=== PATIENT | male | born 1960 | race Caucasian/White ===

== ENCOUNTER → 2018-04-25 06:15 | Outpatient (CLI) | payer MEDICARE, SELFPAY ==
--- NOTE | 2018-04-25 06:17 | NM_ITS ---
History and Indications: Coronary artery disease, hypertension, family history, chest pain, shortness of breath, palpitations, syncope and fatigue Procedure: Patient received a 0.4 mg of Lexiscan, resting heart rate was 53 bpm resting blood pressure 123/64, with Lexiscan maximum heart rate achieved was 84 bpm which is less than 85% of the maximum predicted heart rate and a blood pressure was 122/71. With Lexiscan patient complained of mild chest pressure Electrocardiogram: Resting electrocardiogram showed sinus bradycardia, with Lexiscan there is less than 1.[address] segment depression from the baseline EKG. The EKG portion of the Lexiscan is nondiagnostic. Cardiac stress and resting SPECT images: Cardiac stress and rest SPECT images were obtained using technetium 99 Myoview 31.5 mCi a 10.1 mCi at rest. Gated SPECT further analysis of segmental wall motion and calculation of the ejection fraction also been. Cardiac stress and resting SPECT images show a mild fixed defect in the apex with normal contractility in the gated SPECT is likely secondary to soft tissue attenuation, no reversible ischemia seen. Computer derived ejection fraction is 65% with no obvious regional wall motion abnormality. Right ventricle is normal size and contractility. Conclusion: 1. The EKG portion of the Lexiscan Myoview is nondiagnostic. 2. No obvious scintigraphic evidence of reversible ischemia seen, computer derived ejection fraction is 65% with no obvious regional wall motion abnormality, right ventricle is normal size and contractility. 3. Normal Lexiscan Myoview study.
--- NOTE | 2018-04-25 07:16 | HMH.ITSHM ---
BALINTNA PAIN MED BLOOD PRESSURE MED X 2
== END ==
PROVIDERS: PCP Physician Assistant; Visit Provider Internal Medicine
DX: I20.9 Angina pectoris, unspecified (principal); R42 Dizziness and giddiness; I65.23 Occlusion and stenosis of bilateral carotid arteries
CPT/HCPCS: 78452; 93017; A9502; J2785

== ENCOUNTER → 2018-05-18 13:18 | Outpatient (CLI) | payer MEDICARE, SELFPAY ==
--- NOTE | 2018-05-18 13:21 | CI_ITS ---
Cerebrovascular Exam Indications: Follow-up carotid 433.10. IMPRESSIONS 1. The bilateral vertebral arteries are patent with normal antegrade flow. 2. Study suggests 20-49% stenosis involving the right internal carotid artery. 3. Study suggests 100% occlusion involving the left internal carotid artery. Labs, prior tests, procedures, and surgery: Right endarterectomy (03-Jul-2017). Labs, prior tests, procedures, and surgery: Right endarterectomy (03-Jul-2017). Carotid duplex study. Complete study and Doppler flow study including spectral analysis, color and tracy scale imaging. Height: Height: 175.3cm. Height: 69in. Weight: Weight: 54.4kg. Weight: 119.8lb. Body mass index: BMI: 17.7kg/m^2. Body surface area: BSA: 1.61m^2. Location: Vascular laboratory. Patient status: Outpatient. Tables: Arterial flow: + +--------+--------+ Location V sys V ed + +--------+--------+ Right CCA - proximal 112cm/s 36.1cm/s + +--------+--------+ Right CCA - distal 108cm/s 41.6cm/s + +--------+--------+ Right ECA 88.2cm/s -------- + +--------+--------+ Right ICA - proximal 87.4cm/s 36.3cm/s + +--------+--------+ Right ICA - mid 69.2cm/s 36.8cm/s + +--------+--------+ Right ICA - distal 96.3cm/s 45.7cm/s + +--------+--------+ Right vertebral 38cm/s -------- + +--------+--------+ Left CCA - proximal 65.3cm/s 8.8cm/s + +--------+--------+ Left CCA - distal 55.5cm/s 9.8cm/s + +--------+--------+ Left ECA 163cm/s -------- + +--------+--------+ Left vertebral 60.9cm/s -------- + +--------+--------+ Velocity ratios: + + + + Right, V sys Right, V ed + + + + Max ICA/dist CCA 0.89 1.1 + + + + (Report amended ) Electronically signed by: Indra Ortiz [id number]
== END ==
PROVIDERS: PCP Physician Assistant; Visit Provider Internal Medicine
DX: I65.23 Occlusion and stenosis of bilateral carotid arteries (principal); R42 Dizziness and giddiness
CPT/HCPCS: 93880

== ENCOUNTER → 2018-05-31 11:18 | Outpatient (CLI) | payer MEDICARE, SELFPAY | PROVIDERS: PCP Physician Assistant; Visit Provider Internal Medicine | DX: R06.00 Dyspnea, unspecified (principal); R42 Dizziness and giddiness; I25.10 Atherosclerotic heart disease of native coronary artery without angina pectoris | CPT/HCPCS: 94060; 94640; 94726; 94729 ==

== ENCOUNTER → 2018-10-23 13:26 | Outpatient (CLI) | payer MEDICARE, SELFPAY | PROVIDERS: PCP Physician Assistant; Visit Provider Internal Medicine | DX: I20.9 Angina pectoris, unspecified (principal); R42 Dizziness and giddiness | CPT/HCPCS: 93270 ==

== ENCOUNTER → 2018-11-19 10:11 | Outpatient (CLI) | payer MEDICARE, SELFPAY ==
[2018-11-19 10:27] LABS: Basophils # 0.1 K/mm3 (0-0.2); Eosinophils # 0.3 K/mm3 (0.0-0.4); Eosinophils % 4.9 % (0.1-12.0); Hematocrit 39.4 % (42.0-52.0); Hemoglobin 12.7 g/dL (14.1-18.0); Lymphocytes # 1.8 K/mm3 (0.7-4.5); Lymphocytes % 25.5 % (10-50); Mean Corpuscular HGB Conc 32.2 g/dL (31.8-35.4); Mean Corpuscular Hemoglobin 29.4 pg (27.0-31.2); Mean Corpuscular Volume 91.6 fl (80-94); Mean Platelet Volume 7.6 fl (7.4-10.4); Monocytes # 0.4 K/mm3 (0.1-1.0); Monocytes % 5.7 % (1.7-9.3); Neutrophils # 4.4 K/mm3 (1.8-7.8); Neutrophils % 62.9 % (37.0-80.0); Platelet Count 248 K/mm3 (142-424); Red Cell Distribution Width 13.5 % (11.5-17.5); White Blood Count 6.9 K/mm3 (4.8-10.8)
[2018-11-19 11:18] LABS: Alanine Aminotransferase 35 U/L (12-78); Albumin Level 4.1 gm/dL (3.4-5.0); Alkaline Phosphatase 105 U/L (46-116); Anion Gap 8.6 mEq/L (5-15); Aspartate Amino Transferase 31 U/L (15-37); Bilirubin,Direct 0.1 mg/dL (0.0-0.2); Bilirubin,Indirect 0.4 mg/dL (0.0-0.9); Bilirubin,Total 0.5 mg/dL (0.2-1.0); Blood Urea Nitrogen 24 mg/dL (7-18); Calcium 9.3 mg/dL (8.5-10.1); Carbon Dioxide 35 mmol/L (21.0-32.0); Chloride 99 mmol/L (98-107); Chol/HDL Ratio 2.9 (1-3.5); Cholesterol 116 mg/dL (140-200); Estimated Glomerular Filt Rate 69 ml/min (>60); GFR (African American) 83 ML/MIN (>60); Glucose 131 mg/dL (74-106); HDL Cholesterol 40 mg/dL (27-67); LDL Cholesterol 61 mg/dL (0-130); Potassium 3.6 mmoL/L (3.5-5.1); Sodium 139 mmol/L (136-145); Total Protein,Serum 7.8 gm/dL (6.4-8.2); Triglycerides 76 mg/dL (30-200); VLDL Cholesterol 15 mg/dL (0-40)
== END ==
PROVIDERS: Visit Provider Physician Assistant
DX: E78.5 Hyperlipidemia, unspecified (principal); Z79.899 Other long term (current) drug therapy; R00.1 Bradycardia, unspecified; I25.119 Atherosclerotic heart disease of native coronary artery with unspecified angina pectoris
CPT/HCPCS: 36415; 80048; 80061; 80076; 85025

== ENCOUNTER → 2018-11-22 12:49 | Outpatient (CLI) | payer MEDICARE, SELFPAY ==
--- NOTE | 2018-11-22 12:53 | CI_ITS ---
Cerebrovascular Exam Indications: 433.10 Occlusion/stenosis of carotid artery without cerebral infarction. IMPRESSIONS 1. Study suggests 20-49% stenosis involving the right internal carotid artery. No change from the study of April 2018. 2. Study suggests 90-99% severe stenosis with possible trickle flow seen in proximal ICA. Labs, prior tests, procedures, and surgery: Right endarterectomy. Labs, prior tests, procedures, and surgery: Right endarterectomy. Carotid duplex study. Complete study and Doppler flow study including spectral analysis, color and tracy scale imaging. Location: Vascular laboratory. Patient status: Outpatient. Tables: Arterial flow: + +--------+--------+ Location V sys V ed + +--------+--------+ Right CCA - proximal 120cm/s 42.4cm/s + +--------+--------+ Right CCA - distal 99cm/s 31.4cm/s + +--------+--------+ Right ECA 110cm/s -------- + +--------+--------+ Right ICA - proximal 82.4cm/s 39.1cm/s + +--------+--------+ Right ICA - mid 80.3cm/s 42.6cm/s + +--------+--------+ Right ICA - distal 105cm/s 58cm/s + +--------+--------+ Right vertebral 39.7cm/s -------- + +--------+--------+ Left CCA - proximal 72.8cm/s 13.8cm/s + +--------+--------+ Left CCA - distal 40.5cm/s 9cm/s + +--------+--------+ Left ECA 123cm/s -------- + +--------+--------+ Left ICA - proximal 35.8cm/s 9.4cm/s + +--------+--------+ Left ICA - mid 25.1cm/s 6.7cm/s + +--------+--------+ Left vertebral 73.3cm/s -------- + +--------+--------+ Velocity ratios: + + + + + + Right, V sys Right, V ed Left, V sys Left, V ed + + + + + + Max ICA/dist CCA 1.06 1.85 0.88 1.04 + + + + + + (Report amended ) Electronically signed by: Indra Ortiz [id number]
== END ==
PROVIDERS: PCP Emergency Medicine; Visit Provider Internal Medicine
DX: R42 Dizziness and giddiness (principal)
CPT/HCPCS: 93880

== ENCOUNTER → 2018-12-11 12:29 | Outpatient (CLI) | payer MEDICARE, SELFPAY ==
[2018-12-11 13:58] LABS: Free T4 (Free Thyroxine) 0.97 ng/dl (0.76-1.46); Thyroid Stimulating Hormone 3.75 uIU/ml (0.358-3.740)
== END ==
PROVIDERS: Visit Provider Nurse Practitioner Family
DX: E11.9 Type 2 diabetes mellitus without complications (principal); I25.10 Atherosclerotic heart disease of native coronary artery without angina pectoris; I65.23 Occlusion and stenosis of bilateral carotid arteries; J44.9 Chronic obstructive pulmonary disease, unspecified; R06.09 Other forms of dyspnea; R53.83 Other fatigue; Z95.5 Presence of coronary angioplasty implant and graft; E78.49 Other hyperlipidemia
CPT/HCPCS: 36415; 84439; 84443

== ENCOUNTER → 2018-12-25 13:07 | Outpatient (CLI) | payer MEDICARE, SELFPAY | PROVIDERS: PCP Physician Assistant; Visit Provider Nurse Practitioner Family | DX: R53.83 Other fatigue; R06.83 Snoring; R40.0 Somnolence; I25.10 Atherosclerotic heart disease of native coronary artery without angina pectoris; I65.23 Occlusion and stenosis of bilateral carotid arteries; J44.9 Chronic obstructive pulmonary disease, unspecified; R06.09 Other forms of dyspnea; Z95.5 Presence of coronary angioplasty implant and graft; G47.33 Obstructive sleep apnea (adult) (pediatric); E78.49 Other hyperlipidemia | CPT/HCPCS: G0399 ==

== ENCOUNTER → 2019-01-08 13:02 | Outpatient (CLI) | payer MEDICARE, SELFPAY ==
[2019-01-08 15:10] LABS: Anion Gap 10.5 mEq/L (5-15); Blood Urea Nitrogen 24 mg/dL (7-18); Calcium 8.8 mg/dL (8.5-10.1); Carbon Dioxide 36 mmol/L (21.0-32.0); Chloride 97 mmol/L (98-107); Creatinine,Serum 1.28 mg/dL (0.70-1.30); Estimated Glomerular Filt Rate 58 ml/min (>60); GFR (African American) 70 ML/MIN (>60); Glucose 117 mg/dL (74-106); Potassium 3.5 mmoL/L (3.5-5.1); Sodium 140 mmol/L (136-145)
== END ==
PROVIDERS: Urology; Visit Provider Internal Medicine
DX: E11.9 Type 2 diabetes mellitus without complications (principal); E87.6 Hypokalemia; I25.10 Atherosclerotic heart disease of native coronary artery without angina pectoris
CPT/HCPCS: 36415; 80048

== ENCOUNTER → 2019-01-14 13:53 | Outpatient (CLI) | payer MEDICARE, SELFPAY ==
[2019-01-14 14:55] LABS: Alanine Aminotransferase 23 U/L (12-78); Albumin Level 4.2 gm/dL (3.4-5.0); Albumin/Globulin Ratio 1.1 (1.1-1.8); Alkaline Phosphatase 91 U/L (46-116); Anion Gap 12.3 mEq/L (5-15); Aspartate Amino Transferase 24 U/L (15-37); Bilirubin,Total 0.5 mg/dL (0.2-1.0); Blood Urea Nitrogen 21 mg/dL (7-18); Calcium 9.3 mg/dL (8.5-10.1); Carbon Dioxide 32 mmol/L (21.0-32.0); Chloride 98 mmol/L (98-107); Cholesterol 136 mg/dL (140-200); Creatinine,Serum 1.06 mg/dL (0.70-1.30); Estimated Glomerular Filt Rate 72 ml/min (>60); GFR (African American) 87 ML/MIN (>60); Glucose 125 mg/dL (74-106); HDL Cholesterol 46 mg/dL (27-67); LDL Cholesterol 71 mg/dL (0-130); Potassium 3.3 mmoL/L (3.5-5.1); Sodium 139 mmol/L (136-145); T4 (Thyroxine) 7.9 ug/dl (4.7-13.3); Thyroid Stimulating Hormone 2.23 uIU/ml (0.358-3.740); Total Protein,Serum 8.2 gm/dL (6.4-8.2); Triglycerides 96 mg/dL (30-200); VLDL Cholesterol 19 mg/dL (0-40)
[2019-01-14 15:47] LABS: Hemoglobin A1C 6.3 % (0.0-7.0)
[2019-01-14 18:01] LABS: Basophils # 0.1 K/mm3 (0-0.2); Basophils % 0.7 % (0.1-2.0); Eosinophils # 0.3 K/mm3 (0.0-0.4); Eosinophils % 3.2 % (0.1-12.0); Hematocrit 39.1 % (42.0-52.0); Hemoglobin 13.4 g/dL (14.1-18.0); Lymphocytes # 1.8 K/mm3 (0.7-4.5); Lymphocytes % 18.1 % (10-50); Mean Corpuscular HGB Conc 34.2 g/dL (31.8-35.4); Mean Corpuscular Volume 90.5 fl (80-94); Mean Platelet Volume 8.5 fl (7.4-10.4); Monocytes # 0.7 K/mm3 (0.1-1.0); Monocytes % 6.9 % (1.7-9.3); Neutrophils % 71.1 % (37.0-80.0); Platelet Count 215 K/mm3 (142-424); Red Blood Count 4.32 M/mm3 (4.60-6.20); Red Cell Distribution Width 13.3 % (11.5-17.5); White Blood Count 9.8 K/mm3 (4.8-10.8)
[2019-01-15 12:04] LABS: Ferritin 557 ng/mL (8-388)
[2019-01-16 08:04] LABS: PSA, Free 0.49 ng/mL; Prostate Specific Ag 1.1 ng/mL (0.0-4.0); Vitamin D 25 Hydroxy 35.3 ng/mL (30.0-100.0)
[2019-01-16 08:26] LABS: Iron 44 ug/dL (38-169); UIBC 264 ug/dL (111-343)
[2019-01-16 12:51] LABS: Thyroid Peroxidase Antibodies 10 IU/mL (0-34); Vitamin B12 458 pg/mL (232-1245)
[2019-01-16 12:52] LABS: Iron Saturation 14 % (15-55)
[2019-01-17 07:33] LABS: Thyroid Stimulating Immunoglob <0.10 IU/L (0.00-0.55)
== END ==
PROVIDERS: Visit Provider Physician Assistant
DX: R53.83 Other fatigue (principal); R07.89 Other chest pain; E11.9 Type 2 diabetes mellitus without complications; D64.9 Anemia, unspecified
CPT/HCPCS: 80053; 80061; 82607; 82652; 82728; 82746; 83036; 83540; 83550; 84153; 84154; 84436; 84443; 84445; 85025; 86376

== ENCOUNTER → 2019-02-08 11:44 | Outpatient (CLI) | payer MEDICARE, SELFPAY ==
[2019-02-08 13:00] LABS: Basophils # 0.1 K/mm3 (0-0.2); Basophils % 1.4 % (0.1-2.0); Eosinophils # 0.4 K/mm3 (0.0-0.4); Eosinophils % 5.3 % (0.1-12.0); Hematocrit 39.8 % (42.0-52.0); Hemoglobin 13.1 g/dL (14.1-18.0); Lymphocytes # 2.2 K/mm3 (0.7-4.5); Lymphocytes % 29.9 % (10-50); Mean Corpuscular HGB Conc 32.9 g/dL (31.8-35.4); Mean Corpuscular Hemoglobin 29.8 pg (27.0-31.2); Mean Corpuscular Volume 90.8 fl (80-94); Mean Platelet Volume 7.3 fl (7.4-10.4); Monocytes # 0.4 K/mm3 (0.1-1.0); Monocytes % 5.6 % (1.7-9.3); Neutrophils # 4.3 K/mm3 (1.8-7.8); Neutrophils % 57.7 % (37.0-80.0); Platelet Count 252 K/mm3 (142-424); Red Blood Count 4.39 M/mm3 (4.60-6.20); Red Cell Distribution Width 12.9 % (11.5-17.5); White Blood Count 7.4 K/mm3 (4.8-10.8)
[2019-02-08 13:33] LABS: Potassium 3.4 mmoL/L (3.5-5.1)
== END ==
PROVIDERS: Physician Assistant; Visit Provider Urology
DX: D64.9 Anemia, unspecified (principal); E87.6 Hypokalemia
CPT/HCPCS: 36415; 84132; 85025

== ENCOUNTER → 2019-02-11 08:41 | Outpatient (CLI) | payer MEDICARE, SELFPAY ==
--- NOTE | 2019-02-11 08:42 | US_ITS ---
US Arterial Ankle Brachial Ind History: ITS.REASON: skin changes, claudication, previous smoker ORDERING PHYSICIAN: Sandra Krihsna DPM PATIENT AGE: 58 years TECHNIQUE: Segmental pressures obtained of both right and left leg. These are compared to brachial blood pressure to yield index at each level sampled including summary DON. The data sheets from the procedure are available in PACS FINDINGS Rest study only performed today No prior studies available for comparison. Blood pressures reported are in millimeters mercury. RIGHT LEG DON = 1.0. RIGHT LEG TBI=.8 Brachial BP: 129 Thigh BP: 135 Calf BP: 130 Ankle PT: 130 Ankle DP : 120 Digit =98 LEFT LEG DON = 1.0 LEFT LEG TBI= 1.0 Brachial BPD: 129 Thigh BP: 154 Calf BP: 122 Ankle PT:126 Ankle DP: 135 Digit = 128 Pulses and waveforms: Normal IMPRESSION: The ABIs and TBIs as reported above are within normal limits. Waveforms and pulses are also unremarkable.
== END ==
PROVIDERS: PCP Physician Assistant; Visit Provider Podiatrist
DX: R09.89 Other specified symptoms and signs involving the circulatory and respiratory systems (principal)
CPT/HCPCS: 93922

== ENCOUNTER → 2019-06-13 11:43 | Outpatient (CLI) | payer MEDICARE, SELFPAY ==
--- NOTE | 2019-06-13 11:44 | NM_ITS ---
History:SOA, chest pain, hypertension, hyperlipidemia, family history. Procedure: Patient received a 0.4 mg of intravenous Lexiscan, resting heart rate 70 bpm, resting blood pressure 119/66, with Lexiscan maximum heart rate achieve was 96 bpm which is less than 85 % of the maximum predicted heart rate and blood pressure was 104/70. WIth Lexiscan patient denied any complaint of chest pain. Electrocardiogram: Resting electrocardiogram showed sinus rhythm, with Lexiscan there is less than 1.5mm ST segment depression noted from the baseline EKG. The EKG portion of the Lexiscan Myoview is nondiagnostic. Cardias Stress and Resting SPECT images: Cardias Stress and Resting SPECT images were obtained using technetium 99m Myoview 10.89 mCi stress and 31.2 mCi at rest. Gated SPECT further analysis of segmental wall motion and calculation of ejection fraction also done. Cardiac stress and resting SPECT show uniform myocardial activity without segmental perfusion abnormality , the computer derived ejection fraction is over 65% with no regional wall motion abnormality, right ventricle is normal size and contractility. Conclusion: 1. The EKG portion of the Lexiscan Myoview is nondiagnostic. 2. No scintigraphic evidence of reversible ischemia seen, computer derived ejection fraction is over 65% with no regional wall motion abnormality, right ventricle is normal size and contractility. 3. Normal Lexiscan Myoview study.
--- NOTE | 2019-06-13 12:35 | CI_ITS ---
Cerebrovascular Exam Indications: 433.10 Occlusion/stenosis of carotid artery without cerebral infarction. IMPRESSIONS 1. The bilateral vertebral arteries are patent with normal antegrade flow. 2. Study suggests 20-49% stenosis involving the right internal carotid artery. No change from the study of 22-Nov-2018. 3. Study suggests 90-99%severestenosis involving the left internal carotid artery with possible trickle flow seen. No change from the study of 22-Nov-2018. Labs, prior tests, procedures, and surgery: Right endarterectomy (2017). Labs, prior tests, procedures, and surgery: Right endarterectomy (2017). Carotid duplex study. Complete study and Doppler flow study including spectral analysis, color and tracy scale imaging. Height: Height: 172.7cm. Height: 68in. Weight: Weight: 61.2kg. Weight: 134.7lb. Body mass index: BMI: 20.5kg/m^2. Body surface area: BSA: 1.71m^2. Location: Vascular laboratory. Patient status: Outpatient. Tables: Arterial flow: + +--------+--------+ Location V sys V ed + +--------+--------+ Right CCA - proximal 131cm/s 36.9cm/s + +--------+--------+ Right CCA - distal 114cm/s 41.6cm/s + +--------+--------+ Right ECA 123cm/s -------- + +--------+--------+ Right ICA - proximal 92.1cm/s 37.5cm/s + +--------+--------+ Right ICA - mid 113cm/s 53.4cm/s + +--------+--------+ Right ICA - distal 123cm/s 55.9cm/s + +--------+--------+ Right vertebral 38.4cm/s -------- + +--------+--------+ Left CCA - proximal 98.5cm/s 9.8cm/s + +--------+--------+ Left CCA - distal 51.9cm/s 9.4cm/s + +--------+--------+ Left ECA 160cm/s -------- + +--------+--------+ Left ICA - proximal 21cm/s 5.6cm/s + +--------+--------+ Left ICA - mid 74.6cm/s 18.1cm/s + +--------+--------+ Left vertebral 78.9cm/s -------- + +--------+--------+ Velocity ratios: + + + + + + Right, V sys Right, V ed Left, V sys Left, V ed + + + + + + Max ICA/dist CCA 1.08 1.34 1.44 1.92 + + + + + + (Report amended ) Electronically signed by: Rubio Corral [id number]
--- NOTE | 2019-06-13 13:25 | HMH.ITSHM ---
Current Home Medications as stated by this patient Marcell Manning or paper sales representative. []POTASSIUM ISOSORBIDE HCTZ ATORVASTATIN ASA MULTIVITAMIN FERROUS SULFATE CLOPIDOGREL BISOPROLOL
== END ==
PROVIDERS: PCP Physician Assistant; Visit Provider Internal Medicine Cardiovascular Disease
DX: E11.9 Type 2 diabetes mellitus without complications (principal); E78.5 Hyperlipidemia, unspecified; I25.10 Atherosclerotic heart disease of native coronary artery without angina pectoris; I48.91 Unspecified atrial fibrillation; I49.3 Ventricular premature depolarization; I65.23 Occlusion and stenosis of bilateral carotid arteries; J44.9 Chronic obstructive pulmonary disease, unspecified; R07.89 Other chest pain; R07.9 Chest pain, unspecified; R42 Dizziness and giddiness; Z95.0 Presence of cardiac pacemaker; Z95.5 Presence of coronary angioplasty implant and graft
CPT/HCPCS: 78452; 93017; 93880; A9502; J2785

== ENCOUNTER → 2019-11-28 17:29 | Outpatient (CLI) | payer MEDICARE, SELFPAY | PROVIDERS: Visit Provider Physician Assistant | DX: B95.8 Unspecified staphylococcus as the cause of diseases classified elsewhere (principal); L08.9 Local infection of the skin and subcutaneous tissue, unspecified | CPT/HCPCS: 87070; 87077; 87186; 87205 ==

== ENCOUNTER → 2020-07-17 11:57 | Outpatient (CLI) | payer MEDICARE, SELFPAY ==
[2020-07-17 12:16] LABS: Basophils # 0.1 K/mm3 (0-0.2); Basophils % 0.4 % (0.1-2.0); Eosinophils # 0.3 K/mm3 (0.0-0.4); Eosinophils % 2.4 % (0.1-12.0); Hematocrit 36.3 % (42.0-52.0); Hemoglobin 12.4 g/dL (14.1-18.0); Lymphocytes # 1.2 K/mm3 (0.7-4.5); Lymphocytes % 9.8 % (10-50); Mean Corpuscular HGB Conc 34.2 g/dL (31.8-35.4); Mean Corpuscular Hemoglobin 31.3 pg (27.0-31.2); Mean Corpuscular Volume 91.5 fl (80-94); Mean Platelet Volume 7.7 fl (7.4-10.4); Monocytes # 0.6 K/mm3 (0.1-1.0); Monocytes % 5.1 % (1.7-9.3); Neutrophils # 10.2 K/mm3 (1.8-7.8); Neutrophils % 82.3 % (37.0-80.0); Platelet Count 203 K/mm3 (142-424); Red Blood Count 3.96 M/mm3 (4.60-6.20); Red Cell Distribution Width 12.4 % (11.5-17.5); White Blood Count 12.3 K/mm3 (4.8-10.8)
[2020-07-17 13:19] LABS: Chloride 99 mmol/L (98-107); Potassium 4.3 mmoL/L (3.5-5.1); Sodium 141 mmol/L (136-145)
[2020-07-17 13:21] LABS: Alanine Aminotransferase 20 U/L (12-78); Aspartate Amino Transferase 33 U/L (17-59); Blood Urea Nitrogen 25 mg/dl (9-20); Estimated Glomerular Filt Rate 99 ml/min (>60); GFR (African American) 120 ML/MIN (>60)
[2020-07-17 13:22] LABS: Albumin Level 4.1 g/dl (3.5-5.0); Albumin/Globulin Ratio 1.2 (1.1-1.8); Alkaline Phosphatase 88 U/L (38-126); Anion Gap 15.3 mEq/L (5-15); Bilirubin,Total 1.2 mg/dl (0.2-1.3); Calcium 9.7 mg/dl (8.4-10.2); Carbon Dioxide 31 mmol/L (22.0-30.0); Chol/HDL Ratio 3.6 (1-3.5); Cholesterol 142 mg/dl (140-200); Globulin 3.3 g/dL (1.3-3.2); Glucose 123 mg/dl (74-100); HDL Cholesterol 40 mg/dl (40-60); Total Protein,Serum 7.4 g/dl (6.3-8.2); Triglycerides 116 mg/dl (30-150); VLDL Cholesterol 23 mg/dL (0-40)
[2020-07-17 13:33] LABS: Direct LDL Cholesterol 76.28 mg/dL (100-129)
[2020-07-17 13:39] LABS: T4 (Thyroxine) 7.6 ug/dl (5.53-11.0)
[2020-07-17 13:53] LABS: Thyroid Stimulating Hormone 0.43 uIU/mL (0.465-4.68)
[2020-07-19 17:06] LABS: Covid-19 Nasal PCR Sendout UK Not Detected
== END ==
PROVIDERS: Visit Provider Nurse Practitioner Family
DX: R69 Illness, unspecified (principal); I48.91 Unspecified atrial fibrillation; R09.81 Nasal congestion; R42 Dizziness and giddiness; K92.2 Gastrointestinal hemorrhage, unspecified; I20.9 Angina pectoris, unspecified
CPT/HCPCS: 36415; 80053; 80061; 84436; 84443; 85025; U0003

== ENCOUNTER → 2020-10-06 08:30 | Outpatient (CLI) | payer MEDICARE, SELFPAY ==
--- NOTE | 2020-10-06 08:31 | CA_ITS ---
APPROVED REPORT [employer]: Amie Estrada RVT Laterality: Bilateral Study Quality: Good Indications: bilateral carotid artery stenosis,known occlusion lt ica Surgery/Intervention Endarterectomy: right Medications Plavix Doppler Spectral Velocity Analysis ECA (R) 92.00/8.60 cm/s ECA (L) 102.10/18.70 cm/s dICA (R) 93.00/53.50 cm/s dCCA (L) 40.50/6.40 cm/s Andreas (R) 89.80/46.00 cm/s pCCA (L) 50.60/9.40 cm/s pICA (R) 94.10/42.80 cm/s Vert (L) 47.30/24.70 cm/s dCCA (R) 87.70/32.10 cm/s pCCA (R) 90.90/29.90 cm/s Vert (R) 28.30/13.70 cm/s ICA/CCA 1.07 Findings Study suggests less than 20% stenosis of the right internal cartoid artery. Study suggests total occlusion of the left internal cartoid artery. Antegrade flow seen bilateral vertebral arteries. Conclusion Study suggests less than 20% stenosis of the right internal cartoid artery. Study suggests total occlusion of the left internal cartoid artery. Antegrade flow seen bilateral vertebral arteries. Electronically signed by : Indra Ortiz MD 10/06/2020 17:34:05
== END ==
PROVIDERS: PCP Emergency Medicine; Visit Provider Internal Medicine Cardiovascular Disease
DX: I65.23 Occlusion and stenosis of bilateral carotid arteries (principal)
CPT/HCPCS: 93880

== ENCOUNTER → 2020-12-18 11:22 | Outpatient (CLI) | payer MEDICARE, SELFPAY ==
[2020-12-18 12:07] LABS: Basophils # 0.1 K/mm3 (0-0.2); Basophils % 1.2 % (0.1-2.0); Eosinophils # 0.5 K/mm3 (0.0-0.4); Eosinophils % 8.6 % (0.1-12.0); Hematocrit 41.6 % (42.0-52.0); Hemoglobin 13.8 g/dL (14.1-18.0); Lymphocytes # 1.5 K/mm3 (0.7-4.5); Lymphocytes % 26.3 % (10-50); Mean Corpuscular Hemoglobin 29.9 pg (27.0-31.2); Mean Corpuscular Volume 90.5 fl (80-94); Mean Platelet Volume 7.7 fl (7.4-10.4); Monocytes # 0.5 K/mm3 (0.1-1.0); Monocytes % 8.4 % (1.7-9.3); Neutrophils # 3.1 K/mm3 (1.8-7.8); Neutrophils % 55.5 % (37.0-80.0); Platelet Count 197 K/mm3 (142-424); Red Cell Distribution Width 13.7 % (11.5-17.5); White Blood Count 5.6 K/mm3 (4.8-10.8)
[2020-12-18 12:43] LABS: Hemoglobin A1C 6.6 % (4.0-6.0)
[2020-12-18 12:54] LABS: Alanine Aminotransferase 19 U/L (12-78); Albumin Level 4.5 g/dl (3.5-5.0); Albumin/Globulin Ratio 1.3 (1.1-1.8); Alkaline Phosphatase 83 U/L (38-126); Anion Gap 14.1 mEq/L (5-15); Aspartate Amino Transferase 33 U/L (17-59); Bilirubin,Total 0.4 mg/dl (0.2-1.3); Blood Urea Nitrogen 15 mg/dl (9-20); Calcium 9.8 mg/dl (8.4-10.2); Carbon Dioxide 36 mmol/L (22.0-30.0); Chloride 97 mmol/L (98-107); Chol/HDL Ratio 3.7 (1-3.5); Cholesterol 146 mg/dl (140-200); Estimated Glomerular Filt Rate 76 ml/min (>60); GFR (African American) 93 ML/MIN (>60); Globulin 3.4 g/dL (1.3-3.2); Glucose 136 mg/dl (74-100); HDL Cholesterol 39 mg/dl (40-60); Potassium 4.1 mmoL/L (3.5-5.1); Sodium 143 mmol/L (136-145); Total Protein,Serum 7.9 g/dl (6.3-8.2); Triglycerides 95 mg/dl (30-150); VLDL Cholesterol 19 mg/dL (0-40)
[2020-12-18 13:04] LABS: Direct LDL Cholesterol 84.21 mg/dL (100-129)
[2020-12-18 13:10] LABS: T4 (Thyroxine) 8.5 ug/dl (5.53-11.0)
[2020-12-18 13:23] LABS: Thyroid Stimulating Hormone 2.23 uIU/mL (0.465-4.68)
== END ==
PROVIDERS: Visit Provider Emergency Medicine
DX: I20.9 Angina pectoris, unspecified; I48.91 Unspecified atrial fibrillation; K92.2 Gastrointestinal hemorrhage, unspecified; R79.89 Other specified abnormal findings of blood chemistry
CPT/HCPCS: 36415; 80053; 80061; 83036; 84436; 84443; 85025

== ENCOUNTER 2021-09-06 20:21 | Emergency (ER) | payer MEDICARE, SELFPAY ==
[2021-09-06 20:22] VITALS: BP 148/88; PULSE 80; RESP 16; TEMP 36.9; O2SAT 95; BMI 22.6
[2021-09-06 21:01] VITALS: BMI 22.6
--- NOTE | 2021-09-06 21:02 | CT_ITS ---
PROCEDURE INFORMATION: Exam: CT Abdomen And Pelvis With Contrast Exam date and time: 09/06/2021 9:02 PM Age: 60 years old Clinical indication: Abdominal pain; Generalized; Patient HX: Diffuse abd pain for 1 day TECHNIQUE: Imaging protocol: Computed tomography of the abdomen and pelvis with contrast. Radiation optimization: All CT scans at this facility use at least one of these dose optimization techniques: automated exposure control; mA and/or kV adjustment per patient size (includes targeted exams where dose is matched to clinical indication); or iterative reconstruction. Contrast material: ISOVUE; Contrast volume: 75 ml; Contrast route: IV; COMPARISON: CR CXR2V XR chest 2V 11/26/2018 1:20 PM FINDINGS: Lungs: No mass/infiltrate at either lung base. No pleural effusion. Liver: The liver is normal in size. No evidence of hepatic mass. There is evidence of intrahepatic biliary dilatation. Gallbladder and bile ducts: The gallbladder appears enlarged. There is enlargement of the common hepatic and common bile ducts. The common bile duct as it passes through the head of the pancreas measures 13 mm. This raises the possibility of a stricture or mass within the distal common bile duct or within the pancreatic head. Correlation with MRCP or ERCP would be helpful. Pancreas: Normal. There is dilatation of the main pancreatic duct at the level of the ampulla. It measures nearly 10 mm in diameter. This could also be evaluated with ERCP or MRCP. Spleen: Normal. No splenomegaly. Adrenal glands: Normal. No mass. Kidneys and ureters: There is a 1.7 cm cortical cyst arising from the posterior interpolar region of the left kidney. Stomach and bowel: Unremarkable. No obstruction. No mucosal thickening. Small bowel mesentery is normal. Appendix: Unremarkable. Intraperitoneal space: Unremarkable. No free air. No significant fluid collection. Vasculature: Atheromatous calcification of the aorta and iliac arteries is noted. No abdominal aortic aneurysm. Lymph nodes: Unremarkable. No enlarged lymph nodes. Urinary bladder: Unremarkable as visualized. Reproductive: Unremarkable as visualized. Bones/joints: Unremarkable. No acute fracture. Soft tissues: Unremarkable. IMPRESSION: 1. There is evidence of intrahepatic and extrahepatic biliary dilatation with dilatation of the most proximal aspect of the main pancreatic duct. The possibility of a mass or stricture at the level of the ampulla is considered. Correlation with MRCP or ERCP would be helpful. 2. Benign cystic change left kidney. COMMENTS: Consistent with the [employer]'s Incidental Findings Committee white paper (J Am Maliha Radiol 2018): Any incidental renal lesion less than 1 cm or classified as too small to characterize, or any incidental cystic renal lesion characterized as simple-appearing, is likely benign. No follow-up imaging is recommended for these lesions per consensus recommendations based on imaging criteria.
[2021-09-06 21:13] LABS: Basophils # 0.1 K/mm3 (0-0.2); Basophils % 0.5 % (0.1-2.0); Eosinophils # 0.2 K/mm3 (0.0-0.4); Eosinophils % 1.1 % (0.1-12.0); Hemoglobin 13.5 g/dL (14.1-18.0); Lymphocytes # 1.5 K/mm3 (0.7-4.5); Lymphocytes % 9.1 % (10-50); Mean Corpuscular HGB Conc 32.1 g/dL (31.8-35.4); Mean Corpuscular Hemoglobin 29.4 pg (27.0-31.2); Mean Corpuscular Volume 91.7 fl (80-94); Mean Platelet Volume 7.2 fl (7.4-10.4); Monocytes # 0.6 K/mm3 (0.1-1.0); Monocytes % 3.4 % (1.7-9.3); Neutrophils # 14.5 K/mm3 (1.8-7.8); Neutrophils % 85.9 % (37.0-80.0); Platelet Count 386 K/mm3 (142-424); Red Blood Count 4.58 M/mm3 (4.60-6.20); Red Cell Distribution Width 12.1 % (11.5-17.5); White Blood Count 16.9 K/mm3 (4.8-10.8)
[2021-09-06 21:17] LABS: MANUAL DIFFERENTIAL MANUAL DIFFERENTIAL (MANUAL DIFF)
--- NOTE | 2021-09-06 21:25 | HMH.EDNVD ---
ED Disposition Clinical Impression: Hypokalemia, Cardiac pacemaker in situ, Transaminitis Pancreatitis Qualifiers: Chronicity: acute Pancreatitis type: unspecified pancreatitis type Acute pancreatitis complication: no infection or necrosis Qualified Code(s): K85.90 - Acute pancreatitis without necrosis or infection, unspecified Disposition: Xfer Short-Term Hosp Condition on Discharge: Fair Instructions: DI for Acute Abdominal Pain Referrals: Chase Trejo MD [Primary Care Provider] - Forms: Transfer Record - ED - Critical Care Critical Care Time: No Attestation: On 09/06/21, the high probability of a clinically significant, sudden or life threatening deterioration of the following system(s) required my full and direct attention, intervention and personal management. The time I documented below is in addition to time spent performing reported procedures but includes the following listed in this critical care notation. Medical Decision Making - Medical Records Medical records reviewed: Yes: I reviewed the patient's medical records. - Calvin Inquiry Pt receiving controlled substance: No Vital Signs: 09/06/21 20:22 09/06/21 21:30 09/06/21 22:30 Temperature 98.5 F Temperature Source Oral Pulse Rate 69 85 Pulse Rate [Right Radial] 80 Respiratory Rate 16 18 Blood Pressure 126/73 135/94 H Blood Pressure [Right Arm] 148/88 H Blood Pressure Mean 90 107 Blood Pressure Mean [Right Arm] 108 Blood Pressure Source Blood Pressure Source [Right Arm] Automatic Cuff Blood Pressure Position Blood Pressure Position [Right Arm] Supine 02 Sat by Pulse Oximetry 95 95 94 L Oxygen Delivery Method Room Air 09/06/21 23:01 09/06/21 23:30 09/07/21 00:00 Temperature Temperature Source Pulse Rate 94 H 96 H 104 H Pulse Rate [Right Radial] Respiratory Rate 20 20 18 Blood Pressure 120/64 105/56 L 94/51 L Blood Pressure [Right Arm] Blood Pressure Mean 86 73 63 Blood Pressure Mean [Right Arm] Blood Pressure Source Blood Pressure Source [Right Arm] Blood Pressure Position Blood Pressure Position [Right Arm] 02 Sat by Pulse Oximetry 94 L 94 L 93 L Oxygen Delivery Method 09/07/21 00:30 09/07/21 01:10 09/07/21 01:30 Temperature 102.8 F H Temperature Source Pulse Rate 99 H 107 H 99 H Pulse Rate [Right Radial] Respiratory Rate 20 18 16 Blood Pressure 91/41 L 101/60 L 91/55 L Blood Pressure [Right Arm] Blood Pressure Mean 59 67 62 Blood Pressure Mean [Right Arm] Blood Pressure Source Blood Pressure Source [Right Arm] Blood Pressure Position Blood Pressure Position [Right Arm] 02 Sat by Pulse Oximetry 93 L 93 L 92 L Oxygen Delivery Method 09/07/21 01:58 09/07/21 02:25 09/07/21 02:26 Temperature 101.7 F H Temperature Source Pulse Rate 100 H 97 H 97 H Pulse Rate [Right Radial] Respiratory Rate 18 Blood Pressure 98/51 L 91/48 L 89/54 L Blood Pressure [Right Arm] Blood Pressure Mean 60 57 58 Blood Pressure Mean [Right Arm] Blood Pressure Source Blood Pressure Source [Right Arm] Blood Pressure Position Blood Pressure Position [Right Arm] 02 Sat by Pulse Oximetry 91 L 90 L 90 L Oxygen Delivery Method 09/07/21 02:45 09/07/21 02:57 09/07/21 03:00 Temperature 99.3 F Temperature Source Oral Pulse Rate 105 H 93 H Pulse Rate [Right Radial] Respiratory Rate Blood Pressure 97/55 L 87/51 L Blood Pressure [Right Arm] Blood Pressure Mean Blood Pressure Mean [Right Arm] Blood Pressure Source Blood Pressure Source [Right Arm] Blood Pressure Position Blood Pressure Position [Right Arm] 02 Sat by Pulse Oximetry 91 L 90 L Oxygen Delivery Method Room Air Room Air 09/07/21 03:45 09/07/21 04:15 09/07/21 05:35 Temperature 98.6 F Temperature Source Pulse Rate 89 85 88 Pulse Rate [Right Radial] Respiratory Rate 18 Blood Pressure 90/55 L 89/51 L 99/61 L Blood
[2021-09-06 21:27] LABS: Alanine Aminotransferase 129 U/L (12-78); Albumin Level 4.2 g/dl (3.5-5.0); Albumin/Globulin Ratio 1.1 (1.1-1.8); Alkaline Phosphatase 318 U/L (38-126); Amylase 877 U/L (30-110); Aspartate Amino Transferase 215 U/L (17-59); Bilirubin,Total 1.6 mg/dl (0.2-1.3); Blood Urea Nitrogen 15 mg/dl (9-20); Calcium 9.2 mg/dl (8.4-10.2); Carbon Dioxide 38 mmol/L (22.0-30.0); Creatinine Clearance Estimated 95 mL/min (50-200); Estimated Glomerular Filt Rate 99 ml/min (>60); GFR (African American) 120 ML/MIN (>60); Glucose 182 mg/dl (74-100); Sodium 140 mmol/L (136-145); Total Protein,Serum 8.2 g/dl (6.3-8.2)
[2021-09-06 21:30] VITALS: BP 126/73; PULSE 69; O2SAT 95
[2021-09-06 21:32] LABS: C-Reactive Protein 19.4 mg/L (0-4)
[2021-09-06 21:37] LABS: Anion Gap 12.9 mEq/L (5-15); Chloride 92 mmol/L (98-107)
[2021-09-06 21:39] LABS: Potassium 2.9 mmoL/L (3.5-5.1)
[2021-09-06 21:42] LABS: Erythrocyte Sedimentation Rate 28 mm/hr (0-20)
[2021-09-06 21:56] LABS: Lipase 11091 U/L (23-300)
[2021-09-06 22:29] LABS: Eosinophils % 2 % (0-3); Lymphocytes % 10 % (10-50); Monocytes % 4 % (2-9); Neutrophils % 84 % (42-76); Total Cells Counted 100
[2021-09-06 22:30] VITALS: BP 135/94; PULSE 85; RESP 18; O2SAT 94
[2021-09-06 22:30] LABS: Platelet Estimate Normal
[2021-09-06 22:56] LABS: Coronavirus 19, PCR Not Detected (NotDetected); Influenza A, PCR Not Detected (NotDetected); Influenza B, PCR Not Detected (NotDetected)
[2021-09-06 23:01] VITALS: BP 120/64; PULSE 94; RESP 20; O2SAT 94
[2021-09-06 23:30] VITALS: BP 105/56; PULSE 96; RESP 20; O2SAT 94
--- NOTE | 2021-09-06 23:34 | PC.NURSE ---
Dr Trejo speaking with [facility] for transfer.
--- NOTE | 2021-09-06 23:40 | PC.NURSE ---
[facility] called for transfer, pt placed on waiting list.
--- NOTE | 2021-09-06 23:47 | PC.NURSE ---
[facility] called for transfer, awaiting call back
--- NOTE | 2021-09-06 23:58 | PC.NURSE ---
Dr Trejo speaking with [facility].
[2021-09-07] VITALS (22 sets, daily range): BP systolic 87–118; BP diastolic 41–71; PULSE 70–107; RESP 16–20; TEMP 36.8–39.3; O2SAT 90–98
--- NOTE | 2021-09-07 | PC.NURSE ---
Dr Dhillon accepted pt at [facility], awaiting bed placement.
--- NOTE | 2021-09-07 00:11 | PC.NURSE ---
[facility]
--- NOTE | 2021-09-07 01:11 | XR_ITS ---
PROCEDURE INFORMATION: Exam: XR Chest Exam date and time: 09/07/2021 1:11 AM Age: 60 years old Clinical indication: Fever; Prior surgery; Surgery type: Pacemaker TECHNIQUE: Imaging protocol: XR of the chest. Views: 1 view. COMPARISON: CR CXR2V XR chest 2V 11/26/2018 1:20 PM FINDINGS: Lungs: Unremarkable. No consolidation. Pleural spaces: Unremarkable. No pleural effusion. No pneumothorax. Heart/Mediastinum: Unremarkable. No cardiomegaly. There is a left dual lead transvenous pacer with distal leads in the right atrium and right ventricle. Bones/joints: Cervical fusion has been performed. There are clips along the right paraspinal region within the cervical region which could be secondary to the fusion or could be related to a procedure such as right carotid endarterectomy. It is unchanged. IMPRESSION: No acute findings.
--- NOTE | 2021-09-07 02:49 | PC.NURSE ---
[facility] called for update on pt , they still dont have a bed at this time.
[2021-09-07 03:19] LABS: Microscopic, Urine URINE MICROSCOPIC (MICROSCOPIC)
[2021-09-07 03:27] LABS: Appearance,Urine CLEAR (Clear); Blood, Urine Negative (Negative); Color,Urine ORANGE (Yellow); Glucose,Urine (UA) Negative (Negative); Ketones,Urine Negative (Negative); Leukocyte Esterase,Urine Negative (Negative); Nitrate,Urine Negative (Negative); Protein,Urine TRACE (Negative); Urobilinogen,Urine >=8.0 EU/dl (0.2)
[2021-09-07 03:37] LABS: Bilirubin,Urine Negative (Negative)
[2021-09-07 04:18] LABS: Bacteria,Urine Trace /lpf; WBC,Urine Occasional #/hpf (0-3)
[2021-09-07 04:41] LABS: Basophils # 0.1 K/mm3 (0-0.2); Basophils % 0.2 % (0.1-2.0); Eosinophils # 0.1 K/mm3 (0.0-0.4); Eosinophils % 0.4 % (0.1-12.0); Hematocrit 31.5 % (42.0-52.0); Lymphocytes # 0.5 K/mm3 (0.7-4.5); Lymphocytes % 2.2 % (10-50); Mean Corpuscular HGB Conc 32.9 g/dL (31.8-35.4); Mean Corpuscular Volume 91.2 fl (80-94); Mean Platelet Volume 7.6 fl (7.4-10.4); Monocytes # 0.8 K/mm3 (0.1-1.0); Monocytes % 3.5 % (1.7-9.3); Neutrophils # 22.1 K/mm3 (1.8-7.8); Neutrophils % 93.6 % (37.0-80.0); Platelet Count 240 K/mm3 (142-424); Red Blood Count 3.46 M/mm3 (4.60-6.20); Red Cell Distribution Width 12.3 % (11.5-17.5); White Blood Count 23.6 K/mm3 (4.8-10.8)
[2021-09-07 04:49] LABS: Alanine Aminotransferase 204 U/L (12-78); Albumin Level 2.6 g/dl (3.5-5.0); Albumin/Globulin Ratio 0.9 (1.1-1.8); Alkaline Phosphatase 256 U/L (38-126); Amylase 508 U/L (30-110); Aspartate Amino Transferase 359 U/L (17-59); Bilirubin,Total 2.3 mg/dl (0.2-1.3); Blood Urea Nitrogen 15 mg/dl (9-20); Calcium 7.5 mg/dl (8.4-10.2); Carbon Dioxide 30 mmol/L (22.0-30.0); Chloride 104 mmol/L (98-107); Creatinine Clearance Estimated 95 mL/min (50-200); Estimated Glomerular Filt Rate 99 ml/min (>60); GFR (African American) 120 ML/MIN (>60); Globulin 2.8 g/dL (1.3-3.2); Glucose 138 mg/dl (74-100); Sodium 137 mmol/L (136-145); Total Protein,Serum 5.4 g/dl (6.3-8.2)
[2021-09-07 04:56] LABS: Hemoglobin 10.3 g/dL (14.1-18.0)
[2021-09-07 04:57] LABS: Lipase 3649 U/L (23-300)
--- NOTE | 2021-09-07 05:56 | PC.NURSE ---
[facility] called with update, still no beds at this time.
--- NOTE | 2021-09-07 07:05 | US_ITS ---
PROCEDURE: US GALLBLADDER CLINICAL INDICATION: Abdominal pain COMPARISON: CT CT ABDOMEN PELVIS W CON from 09/06/2021 FINDINGS: Pancreas: Unremarkable/Not well seen Liver: There is intra and extrahepatic biliary ductal dilatation. Gallbladder distension noted. There is small amount gallbladder sludge. Common bile duct is dilated at ten mm.. There is appropriate direction of blood flow within a non dilated portal vein. Right kidney: Unremarkable appearing. No hydronephrosis. Gallbladder: No shadowing stones apparent. A small amount sludge is present. The gallbladder is distended. Common bile duct is dilated at 10 mm. Gallbladder wall does not appear thickened. No pericholecystic fluid apparent. IMPRESSION: Intra and extrahepatic biliary ductal dilatation. No obvious stones. There is a small amount of gallbladder sludge. Dictated by: Indra Ortiz MD 09/07/2021 09:25 Indra Ortiz MD in [place] 09/07/2021 09:25
--- NOTE | 2021-09-07 08:30 | PC.NURSE ---
pt c/o K+ burning arm. infusion decreased to 50cc/hr
--- NOTE | 2021-09-07 09:43 | PC.NURSE ---
[facility] states they still do not have abed but was going to put in another request
--- NOTE | 2021-09-07 10:25 | PC.NURSE ---
Called [facility] and updated them on pt GB US results and advised that Dr. Trejo had spoke with Dr. Torres who advised if pt oculd get to [facility] he would perform ERCP today. Rater Associate advised she would look into the situation and call me back with an update
--- NOTE | 2021-09-07 12:45 | PC.NURSE ---
Transfer center called and requested pt update. Advised they had no beds at [facility] or [facility] at this time but pt remained on wait list.
--- NOTE | 2021-09-07 12:49 | PC.NURSE ---
Dr. Trejo called and advised he had spoke with Mars Lopez MD at [facility] and he agreed to help take care of the patient. HE advised he would call [facility] and have the hospitalist give me a call in the ED
--- NOTE | 2021-09-07 13:02 | PC.NURSE ---
Dr. burrows called and advised he had spoken with Dr. Conley the hospitalist at [facility] and he had accepted the patient and [facility] would be calling me with a bed assignment. Updated pt on POC.
--- NOTE | 2021-09-07 13:54 | PC.NURSE ---
Spoke with Jade brabourswitch house operator at [facility] who gave pt room assignment of ICU room 3 and gave us a number to call report.
[2021-09-08 07:34] LABS: Hep A Ab, IgM Negative (Negative); Hepatitis B Core Antibody IgM Negative (Negative); Hepatitis B Surface Antigen Negative (Negative); Hepatitis C Antibody <0.1 s/co ratio (0.0-0.9)
== END 2021-09-07 15:11 | disposition short-term general hospital (02) ==
PROVIDERS: Emergency Provider Emergency Medicine; PCP Emergency Medicine
DX: K85.90 Acute pancreatitis without necrosis or infection, unspecified (principal); E87.6 Hypokalemia; Z95.0 Presence of cardiac pacemaker; R74.01 Elevation of levels of liver transaminase levels; J44.9 Chronic obstructive pulmonary disease, unspecified; I25.10 Atherosclerotic heart disease of native coronary artery without angina pectoris; I10 Essential (primary) hypertension; K21.9 Gastro-esophageal reflux disease without esophagitis; E78.5 Hyperlipidemia, unspecified; Z79.899 Other long term (current) drug therapy; Z20.822 Contact with and (suspected) exposure to COVID-19
CPT/HCPCS: 71045; 74177; 76705; 80053; 80074; 81001; 82150; 83690; 84145; 85007; 85025; 85651; 86140; 87040; 96365; 96366; 96367; 96375; 99285; C9803; J1335; J2405; Q9967; U0003; U0005

== ENCOUNTER → 2021-10-21 11:02 | Outpatient (CLI) | payer MEDICARE, SELFPAY ==
[2021-10-21 12:22] LABS: Alanine Aminotransferase 15 U/L (12-78); Albumin Level 4.4 g/dl (3.5-5.0); Alkaline Phosphatase 96 U/L (38-126); Amylase 41 U/L (30-110); Aspartate Amino Transferase 31 U/L (17-59); Bilirubin,Direct 0.2 mg/dl (0.0-0.4); Bilirubin,Indirect 0.2 mg/dL (0.0-0.9); Bilirubin,Total 0.4 mg/dl (0.2-1.3); Bilirubin,Unconjugated 0.1 mg/dL (0.0-1.1); Chol/HDL Ratio 4.8 (1-3.5); Cholesterol 160 mg/dl (140-200); HDL Cholesterol 33 mg/dl (40-60); Lipase 33 U/L (23-300); Total Protein,Serum 7.7 g/dl (6.3-8.2); Triglycerides 189 mg/dl (30-150); VLDL Cholesterol 38 mg/dL (0-40)
[2021-10-21 12:33] LABS: Direct LDL Cholesterol 85.62 mg/dL (100-129)
== END ==
PROVIDERS: Visit Provider Physician Assistant
DX: E11.9 Type 2 diabetes mellitus without complications (principal); E78.5 Hyperlipidemia, unspecified; I10 Essential (primary) hypertension; I25.10 Atherosclerotic heart disease of native coronary artery without angina pectoris; I48.91 Unspecified atrial fibrillation; I65.23 Occlusion and stenosis of bilateral carotid arteries; J44.9 Chronic obstructive pulmonary disease, unspecified; Z95.0 Presence of cardiac pacemaker; Z95.5 Presence of coronary angioplasty implant and graft
CPT/HCPCS: 36415; 80061; 80076; 82150; 83690

== ENCOUNTER → 2022-04-26 11:01 | Outpatient (CLI) | payer MEDICARE, SELFPAY ==
--- NOTE | 2022-04-26 11:06 | CA_ITS ---
FINAL REPORT TECHNIQUE: Color Doppler, duplex Doppler and tracy scale sonography of the bilateral neck vasculature was performed. Velocities were measured in the carotid arteries. Stenosis evaluation based on velocity criteria. CLINICAL HISTORY: BRENDA,KNOWN OCCLUSION LICA,PRIOR RT ENDARDECTOMY COMPARISON: October 06, 2020 FINDINGS: The peak systolic velocity of the right common carotid artery is 98 cm/sec and internal carotid artery 86 cm/sec. The diastolic velocity in the internal carotid artery is 49 cm/sec. The ICA/CCA ratio is 1.1. Visually, a mild amount of plaque is seen. These findings are consistent with less than 50% stenosis. The external carotid artery is patent. The right vertebral artery is patent with antegrade flow. The peak systolic velocity of the left common carotid artery is 42 cm/sec. No flow is identified in the left ICA that may be due to occlusion or slow flow. The external carotid artery is patent. The left vertebral artery is patent with antegrade flow. IMPRESSION: No flow identified in the left ICA which may be due to occlusion or slow flow, unchanged from prior. Less than 50% right carotid stenosis. Bilateral patent vertebral arteries. If indicated, CTA or MRA could further evaluate. Reviewed, Interpreted and Dictated by Marv Ghosh III, MD Transcribed by Gavin Brown Authenticated and [facility]
== END ==
PROVIDERS: PCP Emergency Medicine; Visit Provider Nurse Practitioner
DX: E11.9 Type 2 diabetes mellitus without complications (principal); E78.5 Hyperlipidemia, unspecified; I10 Essential (primary) hypertension; I25.10 Atherosclerotic heart disease of native coronary artery without angina pectoris; I48.91 Unspecified atrial fibrillation; J44.9 Chronic obstructive pulmonary disease, unspecified; R42 Dizziness and giddiness; Z95.0 Presence of cardiac pacemaker; Z95.5 Presence of coronary angioplasty implant and graft
CPT/HCPCS: 93880

== ENCOUNTER → 2022-05-25 12:16 | Outpatient (CLI) | payer MEDICARE, SELFPAY | PROVIDERS: PCP Emergency Medicine; Visit Provider Internal Medicine Cardiovascular Disease | DX: R07.9 Chest pain, unspecified (principal); I48.0 Paroxysmal atrial fibrillation; I25.10 Atherosclerotic heart disease of native coronary artery without angina pectoris | CPT/HCPCS: 78452; 93017; A9502; J2785 ==

== ENCOUNTER → 2022-11-22 08:48 | Outpatient (CLI) | payer MEDICARE, SELFPAY ==
--- NOTE | 2022-11-22 08:58 | CA_ITS ---
FINAL REPORT CLINICAL HISTORY: BRENDA, Hx Rt CEA, Lt ICA total occlussion, Ex smoker. COMPARISON: April 2022 FINDINGS: An ultrasound of the carotid arteries was performed. Duplex Doppler evaluation with spectral analysis was performed. The peak systolic velocity of the right common carotid artery is 96 cm/s. The peak systolic velocity of the right internal carotid artery is 85 cm/s and end diastolic velocity 48 cm/s. A small amount of plaque is present. The right external carotid artery is patent. The right vertebral artery is patent with antegrade flow. ICA/CCA ratio: 0.94 The peak systolic velocity of the left common carotid artery is 49 cm/s. Occlusion of the left ICA. The left vertebral artery is patent with antegrade flow. ICA/CCA ratio: Unable to obtain. Bilateral patent vertebral arteries with antegrade flow. IMPRESSION: Chronic occlusion of the left ICA. Less than 50% right carotid stenosis. Reviewed, Interpreted and Dictated by Farrukh Kessler MD Transcribed by Gavin Brown Authenticated and [facility]
== END ==
PROVIDERS: PCP Emergency Medicine; Visit Provider Physician Assistant
DX: I65.23 Occlusion and stenosis of bilateral carotid arteries (principal)
CPT/HCPCS: 93880

== ENCOUNTER → 2023-04-28 12:38 | Outpatient (CLI) | payer MEDICARE, SELFPAY ==
--- NOTE | 2023-04-28 12:44 | US_ITS ---
FINAL REPORT CLINICAL HISTORY: claudication, previous smoker, HTN, left weak pulse, CAD, bilateral rest pain COMPARISON: 02/11/2019 FINDINGS: LOWER EXTREMITY SEGMENTAL PRESSURE MEASUREMENTS Pressure indices are as follows: RIGHT LOWER EXTREMITY: Upper thigh: 0.83 Calf: 0.80 Ankle, posterior tibial artery: 0.71 Ankle, dorsalis pedis: 1.1 Toe: 0.72 Comments: Mild peripheral vascular disease. LEFT LOWER EXTREMITY: Upper thigh: 1.2 Calf: 0.71 Ankle, posterior tibial artery: 0.63 Ankle, dorsalis pedis: 0.65 Toe: 0.58 Comments: Moderate peripheral vascular disease. IMPRESSION: Mild peripheral vascular disease on the right. Moderate peripheral vascular disease on the left. Reviewed, Interpreted and Dictated by Farrukh Kessler MD Transcribed by Melba Aparicio Authenticated and . [facility]
[2023-04-28 13:12] LABS: Basophils # 0.1 K/mm3 (0-0.2); Basophils % 0.9 % (0.1-2.0); Eosinophils # 0.5 K/mm3 (0.0-0.4); Hematocrit 41.6 % (42.0-52.0); Hemoglobin 13.4 g/dL (14.1-18.0); Lymphocytes # 1.5 K/mm3 (0.7-4.5); Mean Corpuscular HGB Conc 32.3 g/dL (31.8-35.4); Mean Corpuscular Volume 89.8 fl (80-94); Mean Platelet Volume 7.5 fl (7.4-10.4); Monocytes # 0.3 K/mm3 (0.1-1.0); Monocytes % 4.3 % (1.7-9.3); Neutrophils # 5.3 K/mm3 (1.8-7.8); Platelet Count 240 K/mm3 (142-424); Red Blood Count 4.63 M/mm3 (4.60-6.20); Red Cell Distribution Width 13.3 % (11.5-17.5); White Blood Count 7.7 K/mm3 (4.8-10.8)
[2023-04-28 13:53] LABS: Alanine Aminotransferase 28 U/L (12-78); Albumin Level 4.4 g/dl (3.5-5.0); Alkaline Phosphatase 125 U/L (38-126); Anion Gap 14.6 mEq/L (5-15); Aspartate Amino Transferase 40 U/L (17-59); Bilirubin,Indirect 0.5 mg/dL (0.0-0.9); Bilirubin,Total 0.5 mg/dl (0.2-1.3); Bilirubin,Unconjugated 0.6 mg/dL (0.0-1.1); Blood Urea Nitrogen 13 mg/dl (9-20); Carbon Dioxide 32 mmol/L (22.0-30.0); Chloride 97 mmol/L (98-107); Chol/HDL Ratio 4.8 (1-3.5); Cholesterol 134 mg/dl (140-200); Estimated Glomerular Filt Rate 76 ml/min (>60); GFR (African American) 92 ML/MIN (>60); Glucose 186 mg/dl (74-100); HDL Cholesterol 28 mg/dl (40-60); Magnesium 1.7 mg/dl (1.6-2.3); Potassium 4.6 mmoL/L (3.5-5.1); Sodium 139 mmol/L (136-145); Total Protein,Serum 7.5 g/dl (6.3-8.2); Triglycerides 111 mg/dl (30-150); VLDL Cholesterol 22 mg/dL (0-40)
[2023-04-28 14:05] LABS: Direct LDL Cholesterol 77.79 mg/dL (100-129)
[2023-04-28 14:10] LABS: Free T4 (Free Thyroxine) 1.04 ng/dl (0.78-2.19)
[2023-04-28 14:23] LABS: Thyroid Stimulating Hormone 1.05 uIU/mL (0.465-4.68)
== END ==
PROVIDERS: PCP Emergency Medicine; Visit Provider Physician Assistant
DX: I73.9 Peripheral vascular disease, unspecified (principal); E11.9 Type 2 diabetes mellitus without complications; E78.2 Mixed hyperlipidemia; I10 Essential (primary) hypertension; I25.10 Atherosclerotic heart disease of native coronary artery without angina pectoris; I65.23 Occlusion and stenosis of bilateral carotid arteries; J44.9 Chronic obstructive pulmonary disease, unspecified; Z95.0 Presence of cardiac pacemaker; Z95.5 Presence of coronary angioplasty implant and graft
CPT/HCPCS: 36415; 80048; 80061; 80076; 83735; 84439; 84443; 85025; 93923

== ENCOUNTER 2023-05-18 13:30 | Observation (INO) | payer MEDICARE, SELFPAY ==
[2023-05-18] VITALS (25 sets, daily range): BP systolic 112–160; BP diastolic 66–100; PULSE 70–80; RESP 16–20; TEMP 36.8–37.3; O2SAT 89–97; BMI 24.3; BMI 24.7
--- NOTE | 2023-05-18 07:24 | IR_ITS ---
APPROVED REPORT Patient Location: Outpatient PROCEDURES Right femoral arterial access Catheter placement in the distal abdominal aorta Distal abdominal aortography Repositioning the catheter in the abdominal aorta Bilateral iliofemoral runoff Catheter placement in the left superficial femoral artery Left superficial femoral artery antegrade angiogram Attempted angioplasty of the left popliteal artery Catheter placement in the PT trunk PT trunk selective angiography INDICATION [place] claudication class III, Peripheral artery disease with DON of 0.6 left side, Calcified and occluded left popliteal artery Informed consent was obtained prior to the procedure. COMPLICATIONS None Estimated Blood Loss: Less than 10 ML TECHNIQUE 1% lidocaine used to size the right groin the right femoral artery was accessed via the center technique and a 5 Tristanian sheath was placed in the right femoral artery. The pigtail catheter was advanced to the abdominal aorta where abdominal aortography was performed. The catheter was then repositioned and bilateral iliofemoral runoff was performed. Following this a rim catheter was placed in the distal abdominal aorta into the left common iliac artery where an advantage wire was then advanced under fluoroscopic guidance into the left superficial femoral artery. The 5 Tristanian sheath was exchanged for a 45 cm 6 Tristanian destination sheath. Therapeutic heparin was administered given therapeutic ACT. A trailblazer catheter along with the advantage wire were used to attempt revascularization of the left popliteal artery. The artery was extensively calcified noncompliant and standard methods to traverse the occlusion were not successful. Down on the PT trunk there was vessel exiting of the wire where angiography demonstrated small amount of extravasation. The catheter was removed the apparatus was removed the groin was reprepped closure change sheath was removed and hemostasis was achieved using Perclose device patient was transferred to the postop putting in stable condition l. ANGIOGRAPHIC RESULTS Distal abdominal aorta is calcified but widely patent Bilateral common iliac arteries are calcified with 30% eccentric plaque. Bilateral internal and external iliac arteries are widely patent. Bilateral common femoral arteries are widely patent Bilateral profunda femoris arteries are patent right superficial femoral artery has mild atheromatous plaque with inline flow into a widely patent right popliteal artery. There is two-vessel runoff below the knee on the right side Left superficial femoral artery is calcified but patent in the proximal segment. The mid popliteal artery is densely calcified and 100% occluded. There are collaterals which reconstitute scantly at the PT trunk as well as the peroneal artery and the anterior tibialis artery. There is slow two-vessel collateral flow into the left foot IMPRESSION Chronically occluded left popliteal artery Attempted and unsuccessful angioplasty of the left popliteal artery PLAN 1. Admit patient overnight for observation and management of left PT trunk extravasation 2. Pain control 3. Control of hypertension 4. At this point it is unlikely any percutaneous revascularization can open the chronically occluded and densely calcified left popliteal artery. Recommend physical therapy and aggressive risk factor modification 5. Recommend Xarelto 2.5 twice daily plus aspirin 81 mg daily 6. Aggressive control of diabetes 7. LDL less than 55 to be achieved with high intensity statin Electronically signed by : Conrad Ball MD 05/18/2023 14:47:37
[2023-05-18 09:14] LABS: Anion Gap 14.4 mEq/L (5-15); Blood Urea Nitrogen 10 mg/dl (9-20); Calcium 8.6 mg/dl (8.4-10.2); Carbon Dioxide 34 mmol/L (22.0-30.0); Chloride 96 mmol/L (98-107); Creatinine Clearance Estimated 72 mL/min (50-200); Estimated Glomerular Filt Rate 68 ml/min (>60); GFR (African American) 82 ML/MIN (>60); Glucose 134 mg/dl (74-100); Potassium 3.4 mmoL/L (3.5-5.1); Sodium 141 mmol/L (136-145)
[2023-05-18 09:17] LABS: Basophils # 0.1 K/mm3 (0-0.2); Basophils % 0.5 % (0.1-2.0); Eosinophils # 0.5 K/mm3 (0.0-0.4); Eosinophils % 3.1 % (0.1-12.0); Hematocrit 40.7 % (42.0-52.0); Lymphocytes # 1.3 K/mm3 (0.7-4.5); Lymphocytes % 7.6 % (10-50); Mean Corpuscular Hemoglobin 29.5 pg (27.0-31.2); Mean Platelet Volume 7.7 fl (7.4-10.4); Monocytes # 0.8 K/mm3 (0.1-1.0); Monocytes % 4.7 % (1.7-9.3); Neutrophils # 14.3 K/mm3 (1.8-7.8); Neutrophils % 84.1 % (37.0-80.0); Platelet Count 197 K/mm3 (142-424); Red Blood Count 4.42 M/mm3 (4.60-6.20); Red Cell Distribution Width 13.7 % (11.5-17.5)
[2023-05-18 09:25] LABS: MANUAL DIFFERENTIAL MANUAL DIFFERENTIAL (MANUAL DIFF)
[2023-05-18 10:43] LABS: Lymphocytes % 10 % (10-50); Monocytes % 3 % (2-9); Neutrophils % 87 % (42-76); Total Cells Counted 100
[2023-05-18 10:44] LABS: Platelet Estimate Normal; RBC Morphology Normal
--- NOTE | 2023-05-18 13:08 | SUR.PHASEII ---
1225 patient complaint of lower left leg and foot pain, left calf measures 35.5 cm hard, painful to the touch. Dr alston notified manual pressure held for 15min on left femoral artery, blood pressure cuff applied to left lower leg for 35 minutes. see mar for med orders. calf measured every 15 minutes there after 1230 35.5 cm 1245 35.5cm 1300 35.5 cm 1315 35.5 cm left calf pain reduced to 4/10
--- NOTE | 2023-05-18 13:49 | EXP.HP ---
History of Present Illness *Admission Date: 05/18/23 *Reason for visit:: leg pain, swelling *History of present illness: Mr. Manning is a 62-year-old male with significant cardiovascular history and vasculopathy. Presented today for elective lower extremity arteriogram and angioplasty of left lower extremity. Found to have significant arteriosclerosis of left popliteal artery. Unsuccessful angioplasty. Subsequently noted to have some mild swelling and pain after procedure. Cardiology requested admission for monitoring overnight and serial exams. Patient otherwise hemodynamically stable. No shortness of breath or chest pain. No active bleeding. Pulses detectable with Doppler. After arriving to the floor, patient complaining of some mild pain. Otherwise no significant symptoms [facility] Disclaimer: The information contained in this section may have been updated after the patient was seen, as this information can be updated by other users. Medical History (Updated 05/18/23 @ 18:14 by Allen Jordan MD) Bradycardia Cardiac defibrillator in place Claudication COPD exacerbation HTN (hypertension) New onset atrial fibrillation Family History (Updated 05/18/23 @ 14:36 by Aracelis Paz RN) No significant family history Family history of myocardial infarction Lung cancer Social History Smoking Status: Former smoker alcohol intake: never counseling provided: none substance use type: denies use current occupational status: employed Travel in the last 8 weeks: Inside the [place] household members: family housing: house current occupational exposures/hazards: No caffeine: Yes Meds Home Medications and Allergies Home Medications Medication Instructions Recorded Confirmed Type ferrous sulfate 142 mg (45 mg 142 mg PO DAILY Supplement 03/14/19 05/18/23 History iron) tablet,extended release aspirin 81 mg tablet,delayed 81 mg PO DAILY Heart Disease 05/31/19 05/18/23 History release (Adult Low Dose Aspirin) ondansetron 4 mg disintegrating 4 mg PO Q6H PRN nausea and 09/06/21 05/18/23 Rx tablet vomiting #30 tabs atorvastatin 40 mg tablet 40 mg PO DAILY Cholesterol 05/18/23 05/18/23 History bisoprolol fumarate 10 mg tablet 10 mg PO DAILY BLOOD PRESSURE 05/18/23 05/18/23 History clopidogrel 75 mg tablet 75 mg PO DAILY ANTIPLATELET/ 05/18/23 05/18/23 History ATRIAL FIB hydrochlorothiazide 12.5 mg tablet 12.5 mg PO DAILY DIURETIC 05/18/23 05/18/23 History isosorbide mononitrate 30 mg 30 mg PO DAILY BLOOD PRESSURE 05/18/23 05/18/23 History tablet,extended release 24 hr omeprazole 40 mg capsule,delayed 40 mg PO DAILY Nausea And Vomiting 05/18/23 05/18/23 History release potassium chloride 10 mEq 10 meq PO DAILY Supplement 05/18/23 05/18/23 History capsule,extended release New Prescriptions to Start Prescriptions: Allergies Allergy/AdvReac Type Severity Reaction Status Date / Time No Known Allergies Allergy Verified 05/18/23 09:07 Exam Data for Last 24 hours Vital signs and Labs for Last 24 Hours: Pulse Resp BP Pulse Ox 70 19 128/75 90 L 05/18/23 11:15 05/18/23 11:15 05/18/23 11:15 05/18/23 11:15 Laboratory Results - last 24 hr 05/18/23 08:52: WBC 17.0 H, RBC 4.42 L, Hgb 13.0 L, Hct 40.7 L, MCV 92.0, MCH 29.5, MCHC 32.0, RDW 13.7, Plt Count 197, MPV 7.7, Neut % (Auto) 84.1 H, Lymph % (Auto) 7.6 L, [place] % (Auto) 4.7, Eos % (Auto) 3.1, Baso % (Auto) 0.5, Neut # (Auto) 14.3 H, Lymph # (Auto) 1.3, [place] # (Auto) 0.8, Eos # (Auto) 0.5 H, Baso # (Auto) 0.1, Total Counted 100, Neutrophils % (Manual) 87 H, Lymphocytes % (Manual) 10, Monocytes % (Manual) 3, Platelet Estimate Normal, RBC Morphology Normal, Sodium 141, Potassium 3.4 L, Chloride 96 L, Carbon Dioxide 34 H, Anion Gap 14.4, BUN 10, Creatinine 1.10, Estimated Creat Clear 72, Estimated GFR 68, Est GFR ( Amer) 82, Glucose 134 H, Calcium 8.6
--- NOTE | 2023-05-18 15:08 | HMH.PHAINT1 ---
Pharmacy Intervention Comments: PATIENT'S HOME MEDICATIONS VERIFIED AND REVIEWED WITH PATIENT AND EXTERNAL PHARMACY. SRINIVASA NOLEN, PHARM STUDENT
[2023-05-18 18:30] LABS: Coronavirus 19, PCR Not Detected (NotDetected); Influenza A, PCR Not Detected (NotDetected); Influenza B, PCR Not Detected (NotDetected)
--- NOTE | 2023-05-18 18:33 | PC.NURSE ---
[address] Jordan face to face that pt has been had oxygen desaturations noted when asleep o2 88-89. per dr jordan, ok to apply o2. 1lpm o2 applied to pt at this time.
--- NOTE | 2023-05-18 18:49 | PC.NURSE ---
upon arrival to floor pt had nitro drip infusing at 10mcg/min 1845 pt nitro decreased to 5mcg/min r/t pt bp 117/69
[2023-05-18 18:51] LABS: Hemoglobin A1C 7.8 % (4.0-6.0)
--- NOTE | 2023-05-18 18:56 | PC.NURSE ---
[address] Jordan that pt requests tylenol for kennedy.
[2023-05-18 20:21] LABS: POC Glucose,Bedside 184 (70-110)
[2023-05-19] VITALS (8 sets, daily range): BP systolic 103–114; BP diastolic 61–70; PULSE 70–80; RESP 15–16; TEMP 36.9–37.4; O2SAT 93–96
[2023-05-19 05:31] LABS: POC Glucose,Bedside 149 (70-110)
[2023-05-19 06:19] LABS: Eosinophils # 0.4 K/mm3 (0.0-0.4); Lymphocytes # 1.4 K/mm3 (0.7-4.5); Lymphocytes % 10.6 % (10-50)
[2023-05-19 06:21] LABS: Chloride 99 mmol/L (98-107); Potassium 3.8 mmoL/L (3.5-5.1); Sodium 137 mmol/L (136-145)
[2023-05-19 06:23] LABS: Alanine Aminotransferase 18 U/L (12-78); Alkaline Phosphatase 89 U/L (38-126); Anion Gap 12.8 mEq/L (5-15); Aspartate Amino Transferase 25 U/L (17-59); Bilirubin,Total 0.2 mg/dl (0.2-1.3); Blood Urea Nitrogen 15 mg/dl (9-20); Carbon Dioxide 29 mmol/L (22.0-30.0); Creatinine Clearance Estimated 83 mL/min (50-200); Estimated Glomerular Filt Rate 86 ml/min (>60); GFR (African American) 104 ML/MIN (>60)
[2023-05-19 06:24] LABS: Albumin Level 3.4 g/dl (3.5-5.0); Albumin/Globulin Ratio 1.1 (1.1-1.8); Calcium 8.2 mg/dl (8.4-10.2); Globulin 3.1 g/dL (1.3-3.2); Glucose 144 mg/dl (74-100); Magnesium 1.7 mg/dl (1.6-2.3); Total Protein,Serum 6.5 g/dl (6.3-8.2)
[2023-05-19 06:33] LABS: Basophils # 0.1 K/mm3 (0-0.2); Basophils % 0.5 % (0.1-2.0); Eosinophils % 3.2 % (0.1-12.0); Hematocrit 36.4 % (42.0-52.0); Mean Corpuscular HGB Conc 31.1 g/dL (31.8-35.4); Mean Corpuscular Hemoglobin 27.9 pg (27.0-31.2); Mean Corpuscular Volume 89.6 fl (80-94); Monocytes # 0.7 K/mm3 (0.1-1.0); Monocytes % 5.8 % (1.7-9.3); Neutrophils # 10.2 K/mm3 (1.8-7.8); Neutrophils % 79.9 % (37.0-80.0); Platelet Count 185 K/mm3 (142-424); Red Blood Count 4.06 M/mm3 (4.60-6.20); Red Cell Distribution Width 13.6 % (11.5-17.5); White Blood Count 12.8 K/mm3 (4.8-10.8)
[2023-05-19 06:45] LABS: Hemoglobin 11.3 g/dL (14.1-18.0)
--- NOTE | 2023-05-19 09:33 | PC.NURSE ---
COURTESY TECH NOTE; ROUNDED ON PT 0815, PT DENIED NEED FOR DRINK, ASSISTANCE WITH RESTROOM, AND NEED TO REPOSITION IN BED. CALL LIGHT WITHIN REACH NO FURTHER REQUESTS AT THIS TIME ALDO ESPINOSA
--- NOTE | 2023-05-19 09:55 | PC.NURSE ---
@ 09 DR. LEMUS AT BEDSIDE AND ADDRESSED PAIN MANAGEMENT @ [address] LEMUS TO TURN OFF NITRO GTT FOR POSSIBLE D/C HOME
--- NOTE | 2023-05-19 11:02 | EXP.DC.SUM ---
General Admission date:: 05/18/23 Discharge date: 05/19/23 HPI HPI HPI: Mr. Manning is a 62-year-old male with significant cardiovascular history and vasculopathy. Presented today for elective lower extremity arteriogram and angioplasty of left lower extremity. Found to have significant arteriosclerosis of left popliteal artery. Unsuccessful angioplasty. Subsequently noted to have some mild swelling and pain after procedure. Cardiology requested admission for monitoring overnight and serial exams. Patient otherwise hemodynamically stable. No shortness of breath or chest pain. No active bleeding. Pulses detectable with Doppler. After arriving to the floor, patient complaining of some mild pain. Otherwise no significant symptoms Hospital Course Hospital Course Hospital Course: Mr. Manning is a 62-year-old male with significant vasculopathy. History of CAD, PAD, claudication, abnormal ABIs. Presented for lower extremity runoff and arteriogram of left lower extremity. Noted to have chronically occluded left popliteal artery. Unsuccessful attempted angioplasty. Noted to have some swelling of the leg and pain after procedure. Cardiology consulted medicine for admission to monitor for possible compartment syndrome and serial pulses overnight. Medicine admitted for further management. Problems addressed as follows: CAD PAD Chronic left popliteal artery occlusion -Taken to [facility] today, unsuccessful angioplasty of left popliteal artery. Noted to have swelling after procedure. Discussed case with cardiology. Requested admission for observation. Pulses detectable with Doppler. Serial measurement of calf diameter to assess for swelling. No significant change in lower extremity. Counseled on risk modification, smoking cessation. Initiated on 2.5 mg twice daily of Xarelto plus aspirin 81 mg daily. Continue home Plavix 75 mg daily, bisoprolol 10 mg daily, HCTZ daily, Imdur 30 mg daily, and Lipitor 40 mg daily. Initially on nitroglycerin drip overnight. Discontinued morning of discharge. Labs remained stable. No change in kidney function with contrast from arteriogram. Reported history of diabetes. Obtained A1c that was 7.8. Treated with low intensity sliding scale during admission. Initiated on Jardiance at discharge for diabetes and heart failure. Further adjustment in the outpatient setting by PCP or cardiology. Follow-up in the next 1 to 2 weeks. Exam Data for Last 24 hours Vital signs and Labs for Last 24 Hours: Temp Pulse Resp BP Pulse Ox 99.3 F 71 15 114/69 94 L 05/19/23 07:36 05/19/23 10:00 05/19/23 10:00 05/19/23 10:00 05/19/23 10:00 Laboratory Results - last 24 hr 05/18/23 08:52: Hemoglobin A1c 7.8 H 05/18/23 18:28: SARS-CoV-2 (PCR) Not detected, Influenza A Untype (PCR) Not detected, Influenza Type B (PCR) Not detected 05/18/23 20:14: POC Glucose 184 H 05/19/23 05:22: POC Glucose 149 H 05/19/23 05:56: WBC 12.8 H, RBC 4.06 L, Hgb 11.3 L D, Hct 36.4 L, MCV 89.6, MCH 27.9, MCHC 31.1 L, RDW 13.6, Plt Count 185, MPV 8.0, Neut % (Auto) 79.9, Lymph % (Auto) 10.6, [place] % (Auto) 5.8, Eos % (Auto) 3.2, Baso % (Auto) 0.5, Neut # (Auto) 10.2 H, Lymph # (Auto) 1.4, [place] # (Auto) 0.7, Eos # (Auto) 0.4, Baso # (Auto) 0.1, Sodium 137, Potassium 3.8, Chloride 99, Carbon Dioxide 29, Anion Gap 12.8, BUN 15 D, Creatinine 0.90, Estimated Creat Clear 83, Estimated GFR 86, Est GFR ( Amer) 104 D, Glucose 144 H, Calcium 8.2 L, Magnesium 1.7, Total Bilirubin 0.2, AST 25, ALT 18, Alkaline Phosphatase 89, Total Protein 6.5, Albumin 3.4 L, Globulin 3.1, Albumin/Globulin Ratio 1.1 I & O for Last 24 hours: Intake & Output 05/16/23 05/17/23 05/18/23 05/19/23 23:59 23:59 23:59 23:59 Intake Total 740 / 1214 1194 / 1194 Output Total 900 / 1100 200 / 200 Balance -160 / 114 994 / 994 Weight 73.567 kg 74.843 kg Constitutional Constitutional: no acute distress, average body habitus and chronically ill
[2023-05-19 11:44] LABS: POC Glucose,Bedside 100 (70-110)
--- NOTE | 2023-05-23 11:02 | CARE MANAGER ---
Called and spoke with patient regarding recent discharge. Patient stated that his leg is very tender, but thinks it's probably normal. Patient advised that if if worsens he should seek medical attention...maybe move MD f/u appt to earlier. Patient had no other concerns or questions at time of call.
== END 2023-05-19 12:51 | disposition home or self-care (01) ==
PROVIDERS: Internal Medicine; Admitting Provider Internal Medicine Adolescent Medicine; PCP Emergency Medicine; Visit Provider Internal Medicine Adolescent Medicine
DX: I70.92 Chronic total occlusion of artery of the extremities (principal); I65.23 Occlusion and stenosis of bilateral carotid arteries; I25.10 Atherosclerotic heart disease of native coronary artery without angina pectoris; I70.213 Atherosclerosis of native arteries of extremities with intermittent claudication, bilateral legs; E11.9 Type 2 diabetes mellitus without complications; I77.1 Stricture of artery; E78.2 Mixed hyperlipidemia; I10 Essential (primary) hypertension; J44.9 Chronic obstructive pulmonary disease, unspecified; Z95.0 Presence of cardiac pacemaker; Z95.5 Presence of coronary angioplasty implant and graft; Z79.84 Long term (current) use of oral hypoglycemic drugs; Z87.891 Personal history of nicotine dependence; Z79.899 Other long term (current) drug therapy; Z79.01 Long term (current) use of anticoagulants; R94.39 Abnormal result of other cardiovascular function study
CPT/HCPCS: G0378; 36415; 37226; 80048; 80053; 82962; 83036; 83735; 85007; 85025; 87635; 87636; 99152; 99153; C1725; C1760; C1766; C1769; C1894; C9803; J1644; J2720; Q9967; U0003; U0005

== ENCOUNTER 2023-07-16 04:53 | Observation (INO) | payer MEDICARE, SELFPAY ==
[2023-07-16] VITALS (12 sets, daily range): BP systolic 100–135; BP diastolic 64–81; PULSE 70–87; RESP 14–20; TEMP 36.9–37.4; O2SAT 92–97; BMI 23.6
--- NOTE | 2023-07-16 04:51 | ECG_ITS ---
APPROVED REPORT Exam: Resting ECG HR:83 bpm ECG Measurements Heart Rate 83 AXES GA 203 P 143 QRSd 109 QRS 7 QT 355 T 61 QTc 395 Conclusion ELECTRONIC ATRIAL PACEMAKER INDETERMINATE AXIS INCOMPLETE RIGHT BUNDLE BRANCH BLOCK [90+ ms QRS DURATION, TERMINAL R IN V1/V2, 40+ ms S IN I/aVL/V4/V5/V6] ABNORMAL RHYTHM ECG UNCONFIRMED REPORT Electronically signed by : José Miguel Ayala MD 07/18/2023 17:25:29
--- NOTE | 2023-07-16 04:57 | CT_ITS ---
PROCEDURE INFORMATION: Exam: CTA Chest With Contrast Exam date and time: 07/16/2023 5:34 AM Age: 62 years old Clinical indication: Pain; Chest pressure; Additional info: Chest pain radiating to back TECHNIQUE: Imaging protocol: Computed tomographic angiography of the chest with contrast. Exam focused on the arteries. 3D rendering (Not supervised by radiologist): MIP and/or 3D reconstructed images were created by the technologist. Radiation optimization: All CT scans at this facility use at least one of these dose optimization techniques: automated exposure control; mA and/or kV adjustment per patient size (includes targeted exams where dose is matched to clinical indication); or iterative reconstruction. Contrast material: ISOVUE; Contrast volume: 92 ml; Contrast route: INTRAVENOUS (IV); REPORTING DATA: Count of CT and Cardiac NM exams in prior 12 months: This patient has received 0 known CTs and 0 known cardiac nuclear medicine studies in the 12 months prior to the current study. COMPARISON: CR XR CHEST PORTABLE 09/07/2021 1:33 AM FINDINGS: Pulmonary arteries: Normal. No pulmonary emboli. Aorta: Unremarkable. No aortic aneurysm. No aortic dissection. Lungs: Bibasilar minimal atelectasis. Mild centrilobular emphysema. Pleural spaces: Unremarkable. No pneumothorax. No pleural effusion. Heart: Unremarkable. No cardiomegaly. No pericardial effusion. Coronary arteries: Coronary artery calcium. Lymph nodes: Unremarkable. No enlarged lymph nodes. Bones/joints: Unremarkable. No acute fracture. Soft tissues: Unremarkable. IMPRESSION: 1. No evidence of pulmonary embolus or other acute process. 2. Coronary athero sclerosis. 3. Mild centrilobular emphysema. COMMENTS: In the absence of a history or active diagnosis of lung cancer, it is recommended that this patient with emphysema be evaluated for enrollment in a low dose CT lung cancer screening program.
[2023-07-16 05:09] LABS: Hemoglobin 14.2 g/dL (14.1-18.0); Mean Corpuscular HGB Conc 32.3 g/dL (31.8-35.4); Mean Corpuscular Hemoglobin 29.8 pg (27.0-31.2); Mean Corpuscular Volume 92.3 fl (80-94); Red Blood Count 4.77 M/mm3 (4.60-6.20); Red Cell Distribution Width 14.1 % (11.5-17.5); White Blood Count 18.4 K/mm3 (4.8-10.8)
[2023-07-16 05:10] LABS: Basophils # 0.1 K/mm3 (0-0.2); Basophils % 0.5 % (0.1-2.0); Eosinophils # 0.5 K/mm3 (0.0-0.4); Eosinophils % 2.6 % (0.1-12.0); Lymphocytes # 1.8 K/mm3 (0.7-4.5); Lymphocytes % 9.6 % (10-50); Mean Platelet Volume 7.4 fl (7.4-10.4); Monocytes # 0.7 K/mm3 (0.1-1.0); Monocytes % 4.1 % (1.7-9.3); Neutrophils # 15.1 K/mm3 (1.8-7.8); Neutrophils % 82.2 % (37.0-80.0); Platelet Count 200 K/mm3 (142-424)
[2023-07-16 05:12] LABS: MANUAL DIFFERENTIAL MANUAL DIFFERENTIAL (MANUAL DIFF)
[2023-07-16 05:13] LABS: Chloride 93 mmol/L (98-107); Sodium 139 mmol/L (136-145)
[2023-07-16 05:16] LABS: Alanine Aminotransferase 28 U/L (12-78); Albumin Level 4.5 g/dl (3.5-5.0); Alkaline Phosphatase 106 U/L (38-126); Aspartate Amino Transferase 43 U/L (17-59); Bilirubin,Total 0.7 mg/dl (0.2-1.3); Blood Urea Nitrogen 17 mg/dl (9-20); Calcium 9.6 mg/dl (8.4-10.2); Carbon Dioxide 33 mmol/L (22.0-30.0); Creatinine Clearance Estimated 64 mL/min (50-200); Estimated Glomerular Filt Rate 62 ml/min (>60); GFR (African American) 74 ML/MIN (>60); Globulin 4.5 g/dL (1.3-3.2); Glucose 164 mg/dl (74-100)
[2023-07-16 05:17] LABS: Eosinophils % 1 % (0-3); Lymphocytes % 10 % (10-50); Monocytes % 4 % (2-9); Neutrophils % 85 % (42-76); Platelet Estimate Normal; RBC Morphology Normal; Total Cells Counted 100
--- NOTE | 2023-07-16 05:19 | PC.NURSE ---
reported critical potassium of 3 to MD
[2023-07-16 05:22] LABS: Coronavirus 19, PCR Not Detected (NotDetected); Influenza A, PCR Not Detected (NotDetected); Influenza B, PCR Not Detected (NotDetected)
--- NOTE | 2023-07-16 05:27 | PC.NURSE ---
Pt gone to RAD via stretcher
[2023-07-16 05:28] LABS: Troponin I 0.05 ng/ml (0.00-0.034)
--- NOTE | 2023-07-16 05:38 | PC.NURSE ---
Pt returned from RAD
--- NOTE | 2023-07-16 05:40 | PC.NURSE ---
Per Ace in radiology, IV of the left AC infiltrated during flushing after CT. Provider aware. Left arm, pink warm dry, minimal swelling noted. no pain at site noted
--- NOTE | 2023-07-16 06:03 | PC.NURSE ---
Pt O2 sats dropped into the 80s. Pt placed on 2lpm NC per Dr. Sparrow.
--- NOTE | 2023-07-16 06:05 | PC.NURSE ---
Dr. Sparrow at to update pt of results
--- NOTE | 2023-07-16 06:25 | PC.NURSE ---
Called admissions to give bed assignment of [id number]
--- NOTE | 2023-07-16 06:45 | PC.NURSE ---
pt arrived to floor at this time
[2023-07-16 08:53] LABS: Troponin I 0.04 ng/ml (0.00-0.034)
--- NOTE | 2023-07-16 09:54 | HMH.PHAINT1 ---
Pharmacy Intervention Comments: MEDICATION RECONCILIATION COMPLETE USING LIST FROM MOST RECENT CARDIOLOGY OFFICE VISIT (07/06/23) AND EXTERNAL PHARMACY FILL HISTORY.
--- NOTE | 2023-07-16 12:09 | EXP.HP ---
History of Present Illness *Admission Date: 07/16/23 *Reason for visit:: Chest pain *History of present illness: Mr. Manning is a 62-year-old male with history of CAD, A-fib, PAD, diabetes, COPD, pacemaker in situ. Presented to the ER with worsening chest pain over the past 2 days. States it got worse last night and became really sharp and intense. Came to the ER for further evaluation. Denies any nausea, vomiting, dyspnea. Pain worse with deep breathing. No syncope, headache, loss of consciousness. Denies any referred pain down his arm. On evaluation in the ER, labs were obtained. Found to have hypokalemia, elevation of troponin to 0.05. Persistent chest pain. CTA of the chest negative. No ST elevation on EKG. Given patient's clinical history, significant risk factors, medicine was consulted for admission and further management/observation overnight. On arrival to the floor, patient states he is feeling somewhat better. States the pain became really intense and scared him. Sparks really sharp mid chest. Still occurs with deep breaths. Does feel somewhat better at this time. [facility] Disclaimer: The information contained in this section may have been updated after the patient was seen, as this information can be updated by other users. Medical History Bradycardia Cardiac defibrillator in place Claudication COPD exacerbation HTN (hypertension) Leg pain New onset atrial fibrillation Family History No significant family history Family history of myocardial infarction Lung cancer Social History Smoking Status: Never smoker alcohol intake: never counseling provided: none substance use type: denies use current occupational status: employed Travel in the last 8 weeks: [place] the [place] household members: family housing: house current occupational exposures/hazards: No caffeine: Yes Review of Systems Review of Systems Review of systems (narrative): 14 point review of systems performed, pertinent positives and negatives as per HPI Meds Home Medications and Allergies Home Medications Medication Instructions Recorded Confirmed Type aspirin 81 mg tablet,delayed 81 mg PO DAILY Heart Disease 05/31/19 07/16/23 History release (Adult Low Dose Aspirin) atorvastatin 40 mg tablet 40 mg PO DAILY Cholesterol 05/18/23 07/16/23 History bisoprolol fumarate 10 mg tablet 10 mg PO DAILY High Blood Pressure 05/18/23 07/16/23 History hydrochlorothiazide 12.5 mg tablet 12.5 mg PO DAILY Fluid 05/18/23 07/16/23 History isosorbide mononitrate 30 mg 30 mg PO DAILY High Blood Pressure 05/26/23 07/16/23 Rx tablet,extended release 24 hr #30 tabs empagliflozin 10 mg tablet 10 mg PO DAILY CAD 07/16/23 07/16/23 History (Jardiance) oxycodone-acetaminophen 10 mg-325 1 tab PO BIDP PRN Severe Pain 07/16/23 07/16/23 History mg tablet (Scale Score 7-10) pantoprazole 40 mg tablet,delayed 40 mg PO DAILY GERD 07/16/23 07/16/23 History release rivaroxaban 2.5 mg tablet (Xarelto) 2.5 mg PO BID Coronary Artery 07/16/23 07/16/23 History Disease New Prescriptions to Start Prescriptions: Allergies Allergy/AdvReac Type Severity Reaction Status Date / Time No Known Allergies Allergy Verified 07/16/23 08:20 Exam Data for Last 24 hours Vital signs and Labs for Last 24 Hours: Temp Pulse Resp BP Pulse Ox O2 Del Method O2 Flow Rate 98.4 F 75 16 100/68 L 93 L Room Air 2 07/16/23 11:17 07/16/23 11:17 07/16/23 11:17 07/16/23 11:17 07/16/23 11:17 07/16/23 11:17 07/16/23 06:00 Laboratory Results - last 24 hr 07/16/23 04:24: WBC 18.4 H, RBC 4.77, Hgb 14.2, Hct 44.0, MCV 92.3, MCH 29.8, MCHC 32.3, RDW 14.1, Plt Count 200, MPV 7.4, Neut % (Auto) 82.2 H, Lymph % (Auto) 9.6 L, [place] % (Auto) 4.1, Eos % (Auto) 2.6, Baso % (Auto) 0.5, Neut
[2023-07-16 16:52] LABS: POC Glucose,Bedside 134 (70-110)
--- NOTE | 2023-07-16 17:09 | PC.NURSE ---
A&OX4. TOLERATING RA WELL. PT HAS RESTED INTERMITTENTLY THIS SHIFT. HAS C/O PATEL X1 AND CP X1. TX WITH TYLENOL AND NITRO PER JAN. EFFECTIVENESS NOTED. PT HAS NOT HAD MUCH OF AN APPETITE. HOME MEDS LOCKED IN DRAWER. NO NEEDS OR C/O NOTED AT THIS TIME. VSS.
[2023-07-16 20:56] LABS: POC Glucose,Bedside 146 (70-110)
--- NOTE | 2023-07-16 23:34 | HMH.EDGENADL ---
Discharge Plan Disposition Patient Disposition: Admitted As Inpatient Clinical Impressions Clinical Impression: NSTEMI (non-ST elevated myocardial infarction), Atrial fibrillation, Cardiac pacemaker in situ, Chronic obstructive lung disease, Hypokalemia, PAD (peripheral artery disease), Diabetes mellitus Discharge ED Provider: Abdiel Sparrow Adult HPI General Chief complaint: Chest Pain Stated complaint: CP Time Seen by Provider: 07/16/23 04:55 Mode of Arrival: Ambulatory Source of Information: Patient Limitations: No Limitations Description of Symptoms (Recalled from ER Triage Doc. by RN): Chest pain, right neck pain and right shoulder pain since yesterday at 7 am, reports pain increases with deep breathes and having SOA History of Present Illness HPI narrative: 62-year-old male history of coronary artery disease, peripheral artery disease, peripheral artery disease, COPD, prior cardiac pacemaker presents with chest pain radiating to the back right side since yesterday. Patient reports worsening pain with deep breathing. Denies any recent fever chills cough or infectious symptoms. Related Data Home Medications Medication Instructions Recorded Confirmed aspirin 81 mg tablet,delayed 81 mg PO DAILY Heart Disease 05/31/19 07/16/23 release (Adult Low Dose Aspirin) atorvastatin 40 mg tablet 40 mg PO DAILY Cholesterol 05/18/23 07/16/23 bisoprolol fumarate 10 mg tablet 10 mg PO DAILY High Blood Pressure 05/18/23 07/16/23 hydrochlorothiazide 12.5 mg tablet 12.5 mg PO DAILY Fluid 05/18/23 07/16/23 empagliflozin 10 mg tablet 10 mg PO DAILY CAD 07/16/23 07/16/23 (Jardiance) oxycodone-acetaminophen 10 mg-325 1 tab PO BIDP PRN Severe Pain 07/16/23 07/16/23 mg tablet (Scale Score 7-10) pantoprazole 40 mg tablet,delayed 40 mg PO DAILY GERD 07/16/23 07/16/23 release rivaroxaban 2.5 mg tablet (Xarelto) 2.5 mg PO BID Coronary Artery 07/16/23 07/16/23 Disease Previous Rx's Medication Instructions Recorded isosorbide mononitrate 30 mg 30 mg PO DAILY High Blood Pressure 05/26/23 tablet,extended release 24 hr #30 tabs Allergies Allergy/AdvReac Type Severity Reaction Status Date / Time No Known Allergies Allergy Verified 07/16/23 08:20 [facility] Disclaimer: The information contained in this section may have been updated after the patient was seen, as this information can be updated by other users. Medical History Bradycardia Cardiac defibrillator in place Claudication COPD exacerbation HTN (hypertension) Leg pain New onset atrial fibrillation Family History No significant family history Family history of myocardial infarction Lung cancer Social History Smoking Status: Never smoker alcohol intake: never counseling provided: none substance use type: denies use current occupational status: employed Travel in the last 8 weeks: [place] the [place] household members: family housing: house current occupational exposures/hazards: No caffeine: Yes ROS Obtained: Yes All systems reviewed & no additional complaints except as documented Physical Exam General General appearance: alert and anxious Head Head exam: atraumatic and normocephalic Eye Eye exam: Present normal appearance, PERRL and EOMI ENT ENT exam: Present normal oropharynx and normal external ear exam Neck Neck exam: Present normal inspection and full ROM Chest Chest inspection: Present normal inspection and symmetric chest wall rise; Absent tenderness Respiratory Respiratory exam: Present normal lung sounds bilaterally; Absent respiratory distress Cardiovascular Cardiovascular exam: Present regular rate and normal rhythm Abdominal Exam Abdominal exam: Present soft; Absent distention, tenderness or guarding Extremities Exam Extremities exam: Present other (Xander
[2023-07-17] VITALS (18 sets, daily range): BP systolic 108–138; BP diastolic 65–78; PULSE 70–90; RESP 14–19; TEMP 36.6–37; O2SAT 92–100; BMI 23.1
[2023-07-17 05:15] LABS: POC Glucose,Bedside 116 (70-110)
[2023-07-17 07:18] LABS: Basophils % 0.5 % (0.1-2.0); Eosinophils # 0.2 K/mm3 (0.0-0.4); Eosinophils % 2.7 % (0.1-12.0); Hematocrit 38.3 % (42.0-52.0); Hemoglobin 12.6 g/dL (14.1-18.0); Lymphocytes # 1.7 K/mm3 (0.7-4.5); Lymphocytes % 21.8 % (10-50); Mean Corpuscular Hemoglobin 30.6 pg (27.0-31.2); Mean Corpuscular Volume 92.6 fl (80-94); Mean Platelet Volume 8.1 fl (7.4-10.4); Monocytes # 0.5 K/mm3 (0.1-1.0); Monocytes % 6.8 % (1.7-9.3); Neutrophils # 5.3 K/mm3 (1.8-7.8); Neutrophils % 68.2 % (37.0-80.0); Platelet Count 153 K/mm3 (142-424); Red Blood Count 4.13 M/mm3 (4.60-6.20); Red Cell Distribution Width 14.2 % (11.5-17.5); White Blood Count 7.7 K/mm3 (4.8-10.8)
[2023-07-17 07:37] LABS: Chloride 100 mmol/L (98-107); Potassium 3.5 mmoL/L (3.5-5.1); Sodium 138 mmol/L (136-145)
[2023-07-17 07:40] LABS: Alanine Aminotransferase 20 U/L (12-78); Albumin Level 3.7 g/dl (3.5-5.0); Alkaline Phosphatase 93 U/L (38-126); Anion Gap 12.5 mEq/L (5-15); Aspartate Amino Transferase 31 U/L (17-59); Bilirubin,Total 0.7 mg/dl (0.2-1.3); Blood Urea Nitrogen 20 mg/dl (9-20); Carbon Dioxide 29 mmol/L (22.0-30.0); Creatinine Clearance Estimated 76 mL/min (50-200); Estimated Glomerular Filt Rate 76 ml/min (>60); GFR (African American) 92 ML/MIN (>60); Globulin 3.6 g/dL (1.3-3.2); Glucose 104 mg/dl (74-100); Magnesium 1.9 mg/dl (1.6-2.3); Total Protein,Serum 7.3 g/dl (6.3-8.2)
--- NOTE | 2023-07-17 07:47 | ECG_ITS ---
APPROVED REPORT Exam: Resting ECG HR:90 bpm ECG Measurements Heart Rate 90 AXES NC 289 P 269 QRSd 109 QRS -9 QT 366 T 51 QTc 413 Conclusion ELECTRONIC ATRIAL PACEMAKER with frequent PVCs noed ABNORMAL RHYTHM ECG UNCONFIRMED REPORT Electronically signed by : José Miguel Ayala MD 07/18/2023 17:23:50
--- NOTE | 2023-07-17 07:59 | PC.NURSE ---
Home Medications Marcell Manning Medication Instructions Recorded Confirmed aspirin 81 mg tablet,delayed 81 mg PO DAILY Heart Disease 05/31/19 07/16/23 release (Adult Low Dose Aspirin) atorvastatin 40 mg tablet 40 mg PO DAILY Cholesterol 05/18/23 07/16/23 bisoprolol fumarate 10 mg tablet 10 mg PO DAILY High Blood Pressure 05/18/23 07/16/23 hydrochlorothiazide 12.5 mg tablet 12.5 mg PO DAILY Fluid 05/18/23 07/16/23 empagliflozin 10 mg tablet 10 mg PO DAILY CAD 07/16/23 07/16/23 (Jardiance) oxycodone-acetaminophen 10 mg-325 1 tab PO BIDP PRN Severe Pain 07/16/23 07/16/23 mg tablet (Scale Score 7-10) pantoprazole 40 mg tablet,delayed 40 mg PO DAILY GERD 07/16/23 07/16/23 release rivaroxaban 2.5 mg tablet (Xarelto) 2.5 mg PO BID Coronary Artery 07/16/23 07/16/23 Disease Previous Rx's Medication Instructions Recorded isosorbide mononitrate 30 mg 30 mg PO DAILY High Blood Pressure 05/26/23 tablet,extended release 24 hr #30 tabs
--- NOTE | 2023-07-17 08:58 | EXP.CARD.CON ---
History of Present Illness History of Present Illness Consult date: 07/17/23 Requesting physician: Allen Jordan Consult reason: chest pain Chief complaint: chest pain, NSTEMI Additional Medical History:: 1. CAD A. JUANITA to LAD, 04/2017 B. LHC, 2019, Mild disease of LAD, Cx and RCA. Moderate (60-70%) disease of diagonal. Medical therapy recommended. EF 65%. LVEDP 10 mm Hg. C. NSTEMI, 07/17/2023 2. COPD/emphysema A. Mild by PFTs 2017 B. CTA of chest, 07/16/2023, No PE. Evidence of coronary artery calcification and mild centrilobular emphysema noted. 3. Carotid disease A. SHILPA 20-49%, LICA 100%, 2017, 2018, 2021 and 11/2022 4. Hyperlipidemia A. Statin therapy B. LDL 77, 04/2023 5. Dual chamber Pacemaker in situ for history of sinus arrest and bradycardia, 2017. Followed by Dr. Michel A. History of A. fib on download, 2018, for which he was started on Xarelto (stopped due to GI bleed). B. Unable to get colonoscopy due to poor prep. Pt refused further attempts. C. Evaluation by Dr. Michel for Watchman device but decision to hold on it was made in 2018 6. Mild positional sleep apnea on sleep study, 2018 7. PAD, medical therapy only per Vascular surgery A. LE runoff, 05/18/2023, calcified distal aorta and iliac arteries but patent. Femorals patent with 2 vessel runoff on right. Left popliteal 100% occluded at mid portion with distal reconstitution and slow two vessel collateral flow into left foot. Unsuccessful angioplasty attempt with extravasation of contrast noted. B. On xarelto 2.5 mg BID 8. HTN A. Echo, 06/2023, pending History of present illness: Mr. Manning is a 62-year-old male with history of CAD, A-fib, PAD, diabetes, COPD, pacemaker in situ. Presented to the ER with worsening chest pain over the past 2 days. States it got worse last night and became really sharp and intense. Came to the ER for further evaluation. Denies any nausea, vomiting, dyspnea. Pain worse with deep breathing. No syncope, headache, loss of consciousness. Denies any referred pain down his arm. On evaluation in the ER, labs were obtained. Found to have hypokalemia, elevation of troponin to 0.05. Persistent chest pain. CTA of the chest negative. No ST elevation on EKG. Given patient's clinical history, significant risk factors, medicine was consulted for admission and further management/observation overnight. On arrival to the floor, patient states he is feeling somewhat better. States the pain became really intense and scared him. [place] really sharp mid chest. Still occurs with deep breaths. Does feel somewhat better at this time. The above per Dr. Jordan Events as noted above confirmed with patient. Chest pain resolved slowly after nitro-paste applied. No recurrent chest pain overnight. CTA of the chest negative for pulmonary embolus. Now feels he is able to take a deep breath. Mild elevation of troponins noted with Tmax of 0.05 EKG is a. paced with intermittent PVC's and V. pacing. NSSTTW abnormalities. [facility] Disclaimer: The information contained in this section may have been updated after the patient was seen, as this information can be updated by other users. Medical History Bradycardia Cardiac defibrillator in place Claudication COPD exacerbation HTN (hypertension) Leg pain New onset atrial fibrillation Family History No significant family history Family history of myocardial infarction Lung cancer Social History Smoking Status: Never smoker alcohol intake: never counseling provided: none substance use type: denies use current occupational status: employed Travel in the last 8 weeks: [place] the [place] household members: family housing: house current occupational exposures/hazards: No caffeine: Yes [place]i
--- NOTE | 2023-07-17 09:01 | IR_ITS ---
APPROVED REPORT Patient Location: Inpatient PROCEDURES Left heart catheterization Left ventriculogram Selective coronary angiogram INDICATION Known coronary artery disease, Elevated troponin Informed consent was obtained prior to the procedure. COMPLICATIONS None Estimated Blood Loss: Less than 10 mls TECHNIQUE One percent lidocaine used to anesthetize the right anterior aspect of the wrist. The right radial artery was accessed via the Seldinger technique. A 6 [place]ian sheath was placed in the right radial artery. 2.5 mg of Verapamil, 800 mcg of nitroglycerin, 1mg Lidocaine and 5000 U Heparin were given through the arterial sheath. The papa catheter was also used to perform left heart catheterization, left ventriculogram and selective coronary angiogram. At the end of the procedure the sheath was removed good hemostasis was achieved using Traclet band, patient was transferred to the postop holding area in stable condition. ANGIOGRAPHIC RESULTS The left main artery Normal The left anterior descending artery Has proximal 20% stenosis followed by mid vessel stent which is widely patent with minimal in-stent restenosis. There is excellent proximal distal transitioning The circumflex artery Is a dominant vessel and has proximal 30% stenoses with additional 30% stenoses in the first obtuse marginal artery and true circumflex artery The right coronary artery Nondominant with proximal and mid vessel 20 to 30% stenoses The BABIN ventriculogram reveals Preserved at 55 to 60% The left ventricular end-diastolic pressure 10 mmHg IMPRESSION Patent coronary arteries as described above Preserved ejection fraction Normal left ventricular end-diastolic pressure PLAN 1. Continue medical management for ischemic heart disease Electronically signed by : Conrad Ball MD 07/17/2023 13:22:24
--- NOTE | 2023-07-17 09:43 | CA_ITS ---
APPROVED REPORT EXAM: Comprehensive 2D, Doppler, and color-flow Echocardiogram Wheel Cleaner: Mikayla Wahl CRT Ht: 5 ft 8 in Wt: 152lbs BSA: 1.82 BP: 114/69 mmHg Indications: CP NSTEMI COPD PAD PP AF CAD 2D Dimensions LVOT 2.08 cm (M/F) 1.5-2.5 M-Mode Dimensions RVDd 2.72 cm (0.9-2.6) LA Diam 3.01 cm (1.9-4.0) LVDd 4.69 cm (3.5-5.7) Ao Diam 3.08 cm (2.0-3.7) LVDs 2.97 cm (3.5-5.7) IVSd 0.94 cm (0.6-1.1) PWd 0.78 cm (0.6-1.1) EF (Teich) 66.40% FS 36.70% EDV (Teich) 101.90 mL TAPSE 2.17 (<1.7) ESV (Teich) 34.20 mL LV Diastology E Decel Time 183.00 (160-240 msec) E/A Ratio 1.3 MED E' 9.70 (< 7 cm/sec) E'/MED E' Ratio 6.90 (>14) LAT E' 10.40 (<10 cm/sec) E/LAT E' Ratio 6.43 (>14) Mitral Valve MV E Max Phil. 67.00 (40-130 cm/s) MV A Velocity 50.00 (40-130 cm/s) E/A Ratio 1.34 MV Decel. Time 183.00 (160-240 ms) MV PHT 54.00 ms Left Ventricle The left ventricle is normal size. The left ventricular systolic function is normal. The left ventricular ejection fraction is within the normal range. There is normal left ventricular wall thickness. There is normal LV segmental wall motion. The left ventricular diastolic function is normal. LVEF is 55%. Right Ventricle Right ventricle is mild to moderately dilated. The right ventricular systolic function is normal. Atria The left atrium size is normal. The interatrial septum is intact with no evidence for an atrial septal defect. Aortic Valve The aortic valve opens well. There is no aortic valvular stenosis. No aortic regurgitation is present. Mitral Valve The mitral valve is normal in structure. No evidence of mitral valve stenosis. Trace mitral regurgitation. Tricuspid Valve The tricuspid valve leaflets are thin and pliable. Trace tricuspid regurgitation. There is insufficient TR jet to estimate RVSP. Pulmonic Valve The pulmonary valve is normal in structure. Trace pulmonic regurgitation. Great Vessels The aortic root is normal in size. The ascending aorta is normal in size. IVC is normal in size and collapses >50% with inspiration. Pericardium Trivial pericardial effusion. Other Information Study Quality: Fair Conclusion Normal biventricular systolic function. No significant valvular disease. Trivial pericardial effusion. Electronically signed by : Nicole Gutierrez, 07/17/2023 17:26:43
--- NOTE | 2023-07-17 16:46 | EXP.DC.SUM ---
General Admission date:: 07/16/23 Discharge date: 07/17/23 HPI HPI HPI: Mr. Manning is a 62-year-old male with history of CAD, A-fib, PAD, diabetes, COPD, pacemaker in situ. Presented to the ER with worsening chest pain over the past 2 days. States it got worse last night and became really sharp and intense. Came to the ER for further evaluation. Denies any nausea, vomiting, dyspnea. Pain worse with deep breathing. No syncope, headache, loss of consciousness. Denies any referred pain down his arm. On evaluation in the ER, labs were obtained. Found to have hypokalemia, elevation of troponin to 0.05. Persistent chest pain. CTA of the chest negative. No ST elevation on EKG. Given patient's clinical history, significant risk factors, medicine was consulted for admission and further management/observation overnight. On arrival to the floor, patient states he is feeling somewhat better. States the pain became really intense and scared him. [place] really sharp mid chest. Still occurs with deep breaths. Does feel somewhat better at this time. Hospital Course Hospital Course Hospital Course: Mr. Manning is a 62-year-old male with significant vasculopathy. History of CAD, PAD, claudication, abnormal ABIs, COPD, pacemaker in situ. Presented for chest pain. Work-up in ER positive for mild elevation of troponin. No ischemic change on EKG. Discussed case with ER physician, requested admission for observation and cardiology eval. Medicine agreed to admit. Last heart cath was in 2019 showing chronic occlusions. Had lower extremity runoff 2 months ago. Pain somewhat better after admission. Was initiated on nitroglycerin paste. Cardiology consulted. Taken for left heart cath. No requirement for stents. Continue medical management. Stable for discharge home. Problems addressed as follows: NSTEMI Chest pain CAD PAD Pacemaker in situ -Blood pressure controlled at goal. Continue home Lipitor 40 mg daily he bisoprolol 10 mg daily, Jardiance 10 mg daily, isosorbide mononitrate 30 mg daily, and Xarelto 2.5 mg twice daily. Serial troponin showed an initial 0.05, repeat 0.04. Did not continue to have elevation. EKG with no ischemic changes. Cardiology was consulted. Patient taken for left heart cath. Patient found to have stable macrovessel disease essentially unchanged from previous study. No stenoses amenable to stenting. Continue medical management. Patient currently on Xarelto for PAD. We will continue Plavix and aspirin for CAD. Continue PPI for GI prophylaxis given triple therapy. Plan close follow-up with cardiology in 1-2 weeks. Leukocytosis -Chest imaging reviewed, no signs of focal consolidation or airspace disease. elevated on admission. Normalized by day of discharge with no treatment. Continued to have no focal focal symptoms such as dysuria, nausea, vomiting, diarrhea. No fever or chills. Diabetes: A1c 7.8 two months ago. Continue Jardiance as above. Fingersticks ACHS, sliding scale insulin ordered during admission. needs further follow-up with PCP for additional treatment Constipation: Noted to have constipation on imaging with significant stool burden in colon. Initiated on MiraLAX every 6 hours. BM before discharge Hypokalemia: Potassium 3.0 on admission. Initiated IV repletion with 40 mEq IV. Repeat potassium 3.5 on day of discharge. Counseled on tobacco cessation and risk modification. [facility] results: ANGIOGRAPHIC RESULTS The left main artery Normal The left anterior descending artery Has proximal 20% stenosis followed by mid vessel stent which is widely patent with minimal in-stent restenosis. There is excellent proximal distal transitioning The circumflex artery Is a dominant vessel and has proximal 30% stenoses with additional 30% stenoses in the first obtuse marginal artery and true circumflex artery The right coronary artery Nondominant with proximal and mid vessel 20 to 30% stenoses The BABIN ventriculogram
[2023-07-17 17:39] LABS: POC Glucose,Bedside 175 (70-110)
--- NOTE | 2023-07-17 17:45 | PC.NURSE ---
called and left message at cardiology office to please call patient with follow up appointment
--- NOTE | 2023-07-17 18:36 | PC.NURSE ---
patient discharged home. Air removed from radial band. No bleeding noted. Pressure dressing applied.
--- NOTE | 2023-07-19 15:15 | CARE MANAGER ---
Spoke with patient for post-discharge phone interview, no issues noted.
== END 2023-07-17 18:35 | disposition home or self-care (01) ==
LOC: ER 05:54 → 2ND 06:52
PROVIDERS: Internal Medicine; Admitting Provider Internal Medicine Adolescent Medicine; Emergency Provider Emergency Medicine; PCP Emergency Medicine; Visit Provider Internal Medicine Adolescent Medicine
DX: I21.4 Non-ST elevation (NSTEMI) myocardial infarction (principal); E87.6 Hypokalemia; I73.9 Peripheral vascular disease, unspecified; I25.10 Atherosclerotic heart disease of native coronary artery without angina pectoris; E78.2 Mixed hyperlipidemia; I10 Essential (primary) hypertension; J43.2 Centrilobular emphysema; E11.52 Type 2 diabetes mellitus with diabetic peripheral angiopathy with gangrene; I48.0 Paroxysmal atrial fibrillation; E11.51 Type 2 diabetes mellitus with diabetic peripheral angiopathy without gangrene; Z95.810 Presence of automatic (implantable) cardiac defibrillator; K59.00 Constipation, unspecified; Z71.6 Tobacco abuse counseling
CPT/HCPCS: 36415; 71275; 80053; 82962; 83735; 84484; 85007; 85025; 87636; 93005; 93306; 93458; 99152; 99291; C1725; C1769; G0378; J1644; Q9967

== ENCOUNTER 2024-01-09 10:23 | Outpatient (CLI) | payer MEDICARE, SELFPAY ==
[2024-01-09 11:24] LABS: Basophils # 0.1 K/mm3 (0-0.2); Basophils % 0.8 % (0.1-2.0); Eosinophils # 0.4 K/mm3 (0.0-0.4); Hematocrit 40.9 % (42.0-52.0); Lymphocytes % 23.6 % (10-50); Mean Corpuscular HGB Conc 34.1 g/dL (31.8-35.4); Mean Corpuscular Hemoglobin 31.2 pg (27.0-31.2); Mean Corpuscular Volume 91.5 fl (80-94); Mean Platelet Volume 8.1 fl (7.4-10.4); Monocytes # 0.4 K/mm3 (0.1-1.0); Monocytes % 4.7 % (1.7-9.3); Neutrophils # 5.6 K/mm3 (1.8-7.8); Neutrophils % 65.8 % (37.0-80.0); Platelet Count 207 K/mm3 (142-424); Red Blood Count 4.47 M/mm3 (4.60-6.20); Red Cell Distribution Width 13.7 % (11.5-17.5); White Blood Count 8.4 K/mm3 (4.8-10.8)
[2024-01-09 12:06] LABS: Chloride 102 mmol/L (98-107)
[2024-01-09 12:07] LABS: Potassium 3.5 mmoL/L (3.5-5.1); Sodium 140 mmol/L (136-145)
[2024-01-09 12:09] LABS: Alanine Aminotransferase 25 U/L (12-78); Alkaline Phosphatase 106 U/L (38-126); Anion Gap 6.5 mEq/L (5-15); Aspartate Amino Transferase 34 U/L (17-59); Bilirubin,Direct 0.3 mg/dl (0.0-0.4); Bilirubin,Indirect 0.2 mg/dL (0.0-0.9); Bilirubin,Total 0.5 mg/dl (0.2-1.3); Bilirubin,Unconjugated 0.2 mg/dL (0.0-1.1); Blood Urea Nitrogen 15 mg/dl (9-20); Carbon Dioxide 35 mmol/L (22.0-30.0); Estimated Glomerular Filt Rate 68 ml/min (>60); GFR (African American) 82 ML/MIN (>60)
[2024-01-09 12:10] LABS: Albumin Level 4.3 g/dl (3.5-5.0); Calcium 9.3 mg/dl (8.4-10.2); Chol/HDL Ratio 4.7 (1-3.5); Cholesterol 145 mg/dl (140-200); Glucose 131 mg/dl (74-100); HDL Cholesterol 31 mg/dl (40-60); Magnesium 2.1 mg/dl (1.6-2.3); Total Protein,Serum 7.4 g/dl (6.3-8.2); Triglycerides 105 mg/dl (30-150); VLDL Cholesterol 21 mg/dL (0-40)
[2024-01-09 12:22] LABS: Direct LDL Cholesterol 81.24 mg/dL (100-129)
[2024-01-09 12:28] LABS: Free T4 (Free Thyroxine) 1.18 ng/dl (0.78-2.19)
[2024-01-09 12:42] LABS: Thyroid Stimulating Hormone 0.59 uIU/mL (0.465-4.68)
== END 2024-01-09 23:59 ==
LOC: LAB 10:25
PROVIDERS: PCP Internal Medicine; Visit Provider Physician Assistant
DX: E11.9 Type 2 diabetes mellitus without complications (principal); E78.5 Hyperlipidemia, unspecified; I10 Essential (primary) hypertension; I25.10 Atherosclerotic heart disease of native coronary artery without angina pectoris; I73.9 Peripheral vascular disease, unspecified; J44.9 Chronic obstructive pulmonary disease, unspecified; Z95.0 Presence of cardiac pacemaker; Z79.899 Other long term (current) drug therapy
CPT/HCPCS: 36415; 80048; 80061; 80076; 83735; 84439; 84443; 85025

== ENCOUNTER 2024-07-11 09:07 | Outpatient (CLI) | payer MEDICARE, SELFPAY ==
[2024-07-11 18:56] LABS: Creatinine,Urine Random 76 mg/dL (Not Estab.)
[2024-07-11 19:05] LABS: Microalbumin/Creatinine Ratio 16.3
== END 2024-07-11 23:59 | disposition home or self-care (01) ==
LOC: LAB.DROPOF 07-12 09:08
PROVIDERS: PCP Nurse Practitioner Family; Visit Provider Nurse Practitioner Family
DX: E11.52 Type 2 diabetes mellitus with diabetic peripheral angiopathy with gangrene (principal); Z79.84 Long term (current) use of oral hypoglycemic drugs
CPT/HCPCS: 82043; 82570

== ENCOUNTER 2024-07-19 11:32 | Outpatient (CLI) | payer MEDICARE, SELFPAY ==
[2024-07-19 11:55] LABS: Basophils # 0.1 K/mm3 (0-0.2); Basophils % 1.8 % (0.1-2.0); Eosinophils # 0.4 K/mm3 (0.0-0.4); Eosinophils % 5.5 % (0.1-12.0); Hematocrit 40.3 % (42.0-52.0); Hemoglobin 13.1 g/dL (14.1-18.0); Lymphocytes # 1.9 K/mm3 (0.7-4.5); Lymphocytes % 26.3 % (10-50); Mean Corpuscular HGB Conc 32.5 g/dL (31.8-35.4); Mean Corpuscular Hemoglobin 29.9 pg (27.0-31.2); Monocytes # 0.3 K/mm3 (0.1-1.0); Monocytes % 4.8 % (1.7-9.3); Neutrophils # 4.4 K/mm3 (1.8-7.8); Neutrophils % 61.7 % (37.0-80.0); Platelet Count 196 K/mm3 (142-424); Red Blood Count 4.38 M/mm3 (4.60-6.20); Red Cell Distribution Width 14.2 % (11.5-17.5); White Blood Count 7.1 K/mm3 (4.8-10.8)
[2024-07-19 13:21] LABS: Albumin Level 4.2 g/dl (3.5-5.0); Chloride 106 mmol/L (98-107); Sodium 140 mmol/L (136-145)
[2024-07-19 13:24] LABS: Alanine Aminotransferase 16 U/L (12-78); Alkaline Phosphatase 62 U/L (38-126); Aspartate Amino Transferase 21 U/L (17-59); Bilirubin,Direct 0.3 mg/dl (0.0-0.4); Bilirubin,Indirect 0.1 mg/dL (0.0-0.9); Bilirubin,Total 0.4 mg/dl (0.2-1.3); Bilirubin,Unconjugated 0.1 mg/dL (0.0-1.1); Blood Urea Nitrogen 23 mg/dl (9-20); Carbon Dioxide 29 mmol/L (22.0-30.0); Cholesterol 103 mg/dl (140-200); Estimated Glomerular Filt Rate 68 ml/min (>60); GFR (African American) 82 ML/MIN (>60); Glucose 137 mg/dl (74-100); Total Protein,Serum 7.1 g/dl (6.3-8.2); Triglycerides 101 mg/dl (30-150); VLDL Cholesterol 20 mg/dL (0-40)
[2024-07-19 13:25] LABS: Chol/HDL Ratio 3.1 (1-3.5); HDL Cholesterol 33 mg/dl (40-60); Magnesium 1.8 mg/dl (1.6-2.3)
[2024-07-19 13:41] LABS: Free T4 (Free Thyroxine) 1.03 ng/dl (0.78-2.19)
[2024-07-19 13:52] LABS: Prostate Specific Ag Screen 0.7 ng/ml (0.0-4.0)
[2024-07-19 13:55] LABS: Thyroid Stimulating Hormone 0.81 uIU/mL (0.465-4.68)
[2024-07-19 16:08] LABS: Hemoglobin A1C 6.8 % (4.0-6.0)
== END 2024-07-19 23:59 | disposition home or self-care (01) ==
LOC: LAB 11:36
PROVIDERS: Nurse Practitioner Family; PCP Internal Medicine; Visit Provider Physician Assistant
DX: I73.9 Peripheral vascular disease, unspecified (principal); I25.10 Atherosclerotic heart disease of native coronary artery without angina pectoris; J43.2 Centrilobular emphysema; E11.52 Type 2 diabetes mellitus with diabetic peripheral angiopathy with gangrene; E78.2 Mixed hyperlipidemia; Z95.0 Presence of cardiac pacemaker; I10 Essential (primary) hypertension; Z12.5 Encounter for screening for malignant neoplasm of prostate
CPT/HCPCS: 36415; 80048; 80061; 80076; 83036; 83735; 84439; 84443; 85025; G0103

== ENCOUNTER 2024-09-05 07:05 | Day surgery (SDC) | payer MEDICARE, SELFPAY ==
[2024-09-03 10:43] VITALS: BMI 22.8
[2024-09-05 07:20] VITALS: BP 156/97; PULSE 84; RESP 16; TEMP 36.6; O2SAT 98
[2024-09-05 07:38] LABS: POC Glucose,Bedside 110 (70-110)
--- NOTE | 2024-09-05 07:39 | EXP.ANES.CKL ---
[facility] Disclaimer: The information contained in this section may have been updated after the patient was seen, as this information can be updated by other users. Medical History Diabetes mellitus, type 2 Positive colorectal cancer screening using Cologuard test Leg pain Cardiac defibrillator in place COPD exacerbation Claudication HTN (hypertension) New onset atrial fibrillation Bradycardia Surgical History History of cholecystectomy H/O right heart catheterization H/O neck surgery Family History Other Family history of myocardial infarction Lung cancer Social History Smoking Status: Never smoker alcohol intake: never counseling provided: none substance use type: denies use current occupational status: employed Travel in the last 8 weeks: [place] the [place] household members: family housing: house current occupational exposures/hazards: No caffeine: Yes [facility] Anesthesia Checklist Patient Identification Patient Identification: Verbal (Name & ) Structural Data Admitted From: Home Planned Operative Procedure/s: colonoscopy Consent for Planned Operative Procedure(s) Verified: Yes NPO Status Verified Time NPO: 00:00 Additional verifications Anesthesia Reactions: No Hx Blood Transfusions: No Blood Transfusion Reaction: No Airway Assessment Mallampati Score:: Class II C-Spine Mobility Assessed: Yes TMJ Mobility Assessed: Yes Dentition: Edentulous Neurological Assessment Level of Consciousness: Awake, Alert and Appropriate Anesthesia Plan Anesthesia Risk discussed: Yes Anesthesia Plan: Verified ASA Class: III Anesthesia Type: MAC
--- NOTE | 2024-09-05 07:50 | EXP.HP ---
History of Present Illness *Admission Date: 09/05/24 *Reason for visit:: Screening *History of present illness: Mr. Manning is a 63-year-old gentleman who is here for screening colonoscopy. The examination is deemed medically necessary for screening. The patient has been seen, interviewed and examined prior to the procedure by both myself and the anesthesia provider. [facility] Disclaimer: The information contained in this section may have been updated after the patient was seen, as this information can be updated by other users. Medical History Diabetes mellitus, type 2 Positive colorectal cancer screening using Cologuard test Leg pain Cardiac defibrillator in place COPD exacerbation Claudication HTN (hypertension) New onset atrial fibrillation Bradycardia Surgical History History of cholecystectomy H/O right heart catheterization H/O neck surgery Family History Other Family history of myocardial infarction Lung cancer Social History Smoking Status: Never smoker alcohol intake: never counseling provided: none substance use type: denies use current occupational status: employed Travel in the last 8 weeks: [place] the [place] household members: family housing: house current occupational exposures/hazards: No caffeine: Yes Other Medical History Have you received the Flu Vaccine for this season: No Have you received the Pneumonia Vaccine: Yes Review of Systems Review of Systems Review of systems (narrative): Negative *Cardiovascular Comments: Negative *Gastrointestinal Comments: Negative *Genitourinary Comments: Negative *Musculoskeletal Comments: Negative *Neurologic Comments: Negative Meds Home Medications and Allergies Home Medications ?Medication ?Instructions ?Recorded ?Confirmed ?Type aspirin 81 mg tablet,delayed 81 mg PO DAILY Heart Disease 05/31/19 09/03/24 History release (Adult Low Dose Aspirin) amlodipine 2.5 mg tablet 2.5 mg PO DAILY 30 days #90 tabs 08/23/23 09/03/24 Rx bisoprolol fumarate 10 mg tablet See Rx Instructions .Route 12/08/23 09/03/24 Rx .COMPLEX #90 tabs isosorbide mononitrate 30 mg 30 mg PO DAILY High Blood Pressure 12/08/23 09/03/24 Rx tablet,extended release 24 hr #90 tabs hydrochlorothiazide 12.5 mg tablet 12.5 mg PO .COMPLEX #30 tabs 01/09/24 09/03/24 Rx potassium chloride 10 mEq 10 meq PO .COMPLEX #30 caps 01/24/24 09/03/24 Rx capsule,extended release rivaroxaban 2.5 mg tablet (Xarelto) See Rx Instructions .Route 03/14/24 09/03/24 Rx .COMPLEX #60 tabs lisinopril 2.5 mg tablet See Rx Instructions .Route 05/22/24 09/03/24 Rx .COMPLEX #30 tabs empagliflozin 10 mg tablet 10 mg PO DAILY 07/11/24 09/03/24 History rosuvastatin 20 mg tablet 20 mg PO DAILY #90 tabs 07/29/24 09/03/24 Rx sodium,potassium,mag sulfates 17.5 See Rx Instructions PO .COMPLEX 08/28/24 09/03/24 Rx gram-3.13 gram-1.6 gram oral soln #354 mL (Suprep Bowel Prep Kit) pantoprazole 40 mg tablet,delayed See Rx Instructions .Route 09/04/24 Rx release .COMPLEX #90 tabs New Prescriptions to Start Prescriptions: Allergies Allergy/AdvReac Type Severity Reaction Status Date / Time No Known Allergies Allergy Verified 09/03/24 13:19 Exam Data for Last 24 hours Vital signs and Labs for Last 24 Hours: Temp Pulse Resp BP Pulse Ox O2 Del Method 97.8 F 84 16 156/97 H 98 Room Air 09/05/24 07:20 09/05/24 07:20 09/05/24 07:20 09/05/24 07:20 09/05/24 07:20 09/05/24 07:20 Laboratory Results - last 24 hr 09/05/24 07:29: POC Glucose 110 I & O for Last 24 hours: Intake & Output 09/02/24 09/03/24 09/04/24 09/05/24 23:59 23:59 23:59 23:59 Weight 150 lb *Routine HEENT Exam Head: Present normocephalic Eye: Present EOMI and PERRL ENT: Present mucous membranes moist *Routine Neck Exam Neck: Present supple *Routine Respiratory Exam Respiratory: Present CTA bilaterally *Routine Cardiovascular Exam Cardiovascular: Present RRR *Routine Abdominal Exam Abdominal: Present soft and normoactive bowel sounds; Absent tenderness *Routine Rectal Exam Rectal:: deferred *Routine Genitalia Exam Genitalia:: deferred *Routine Extremities Exam Extremities: Absent cyanosis, clubbing or edema *Routine Skin Exam Skin: Present warm; Absent rash *Routine Neurological Exam Neurological: Present alert and oriented X3 Assessment and Plan *Assessment and plan (1) Screening for colon cancer: Status: Acute Category: Medical Code(s): Z12.11 - Encounter for screening for malignant neoplasm of colon Plan A/P: 1. Screening for colon cancer is the preprocedural diagnosis. The patient will be anesthetized/sedated using MAC sedation. The patient has been seen and examined. Cardiac and lung assessment prior to the examination is stable. Proceed with planned colonoscopy
[2024-09-05 07:53] VITALS: O2SAT 98
--- NOTE | 2024-09-05 07:59 | HMH.PROCNOTE ---
[facility] Procedure Note Date: 09/05/24 Time: 08:17 Procedure Note:: Colonoscopy Procedure Report: Colonoscopy with cold snare polypectomy Endoscopist: Al Torres II, MD Referring physician: Sky Tilley MD Date of Procedure: September 05, 2024 Equipment: Olympus 190 variable stiffness pediatric colonoscope Sedation: MAC sedation Indication: Mr. Manning is a 63-year-old gentleman who is here for screening colonoscopy. He did have an attempted colonoscopy 4 to 6 years ago but was unprepped. He reports no abdominal pain, weight loss, change in his bowel habits or rectal bleeding. He will occasionally have some hemorrhoidal bleeding. He reports no family history of colon cancer. He does have a bowel movement 2 or 3 times a week. He did have laparoscopic cholecystectomy in 2020 for gallstones and had an ERCP prior to cholecystectomy. Procedure: Prior to the procedure, a history and physical exam was performed, and patient's medications and allergies were reviewed. The risks, benefits and alternatives of the sedation and procedure were discussed with the patient. All questions were answered and informed consent was obtained. The patient was brought to the procedure room. Patient identification and proposed procedure were verified by the physician and the nurse. The patient was placed in a left lateral decubitus position and the scope was passed under direct vision. Throughout the procedure, the patient's blood pressure, pulse, and oxygen saturations were monitored continuously. The colonoscopy was accomplished without difficulty. The patient tolerated the procedure well. Findings: On digital rectal examination there was normal rectal tone. There were no external hemorrhoids. The prostate was 2+, smooth, soft, symmetric without nodules. The colonoscope was introduced through the anal canal to the rectum and advanced to the cecum. The ileocecal valve and appendiceal orifice were identified. The scope was advanced a short distance into the ileum which appeared grossly normal. The scope was then withdrawn into the colon. There were 3 diminutive polyps (transverse x 1 (3 mm) and sigmoid x 2 (4 and 4 mm)). These were all removed via cold snare polypectomy. The remaining cecum, ascending, transverse, descending, sigmoid and rectum were grossly normal. There were no mucosal abnormalities identified. Upon retroflexion within the rectum there were grade 1 internal hemorrhoids.there were a couple of small hypertrophied anal papilla. The preparation was good throughout with [place] Preparation Score of 8 out of 9. The cecal time was 14 minutes. Impression: 1. Diminutive colonic polyps x 3 Plan: I will follow-up the polyp histology and recommend repeat surveillance colonoscopy again in 5 to 7 years based upon pathology.
[2024-09-05 08:21] VITALS: BP 78/40; PULSE 70; RESP 16; TEMP 36.7; O2SAT 97
[2024-09-05 08:31] VITALS: BP 92/55; PULSE 70; RESP 18; TEMP 36.7; O2SAT 97
[2024-09-05 08:41] VITALS: BP 101/59; PULSE 71; RESP 18; TEMP 36.7; O2SAT 100
[2024-09-05 08:55] VITALS: BP 107/59; PULSE 70; RESP 18; O2SAT 100
== END 2024-09-05 08:55 | disposition home or self-care (01) ==
PROVIDERS: PCP Internal Medicine; Visit Provider Internal Medicine Gastroenterology
PROC: 0DJD8ZZ Inspection of Lower Intestinal Tract, Via Natural or Artificial Opening Endoscopic (ICD-10-PCS; CPT 45378; principal; 2024-09-05 08:30)
DX: Z12.11 Encounter for screening for malignant neoplasm of colon (principal); K64.0 First degree hemorrhoids; K63.5 Polyp of colon; E11.9 Type 2 diabetes mellitus without complications; Z79.84 Long term (current) use of oral hypoglycemic drugs
CPT/HCPCS: 45385; 82962; 88305

== ENCOUNTER 2025-01-08 09:05 | Outpatient (CLI) | payer MEDICARE, SELFPAY ==
[2025-01-08 18:40] LABS: Albumin Level 4.5 g/dl (3.5-5.0); Chloride 100 mmol/L (98-107); Sodium 140 mmol/L (136-145)
[2025-01-08 18:41] LABS: Potassium 3.6 mmoL/L (3.5-5.1)
[2025-01-08 18:43] LABS: Alanine Aminotransferase 17 U/L (12-78); Albumin/Globulin Ratio 1.6 (1.1-1.8); Alkaline Phosphatase 74 U/L (38-126); Anion Gap 11.6 mEq/L (5-15); Aspartate Amino Transferase 24 U/L (17-59); Bilirubin,Total 0.2 mg/dl (0.2-1.3); Blood Urea Nitrogen 24 mg/dl (9-20); Carbon Dioxide 32 mmol/L (22.0-30.0); Cholesterol 111 mg/dl (140-200); Estimated Glomerular Filt Rate 61 ml/min (>60); GFR (African American) 74 ML/MIN (>60); Globulin 2.8 g/dL (1.3-3.2); Total Protein,Serum 7.3 g/dl (6.3-8.2); Triglycerides 232 mg/dl (30-150); VLDL Cholesterol 46 mg/dL (0-40)
[2025-01-08 18:44] LABS: Calcium 9.1 mg/dl (8.4-10.2); Glucose 130 mg/dl (74-100); HDL Cholesterol 28 mg/dl (40-60)
[2025-01-08 18:54] LABS: Direct LDL Cholesterol 47.84 mg/dL (100-129)
[2025-01-08 19:15] LABS: Hemoglobin A1C 6.9 % (4.0-6.0)
== END 2025-01-08 23:59 | disposition home or self-care (01) ==
LOC: LAB.DROPOF 01-09 12:37
PROVIDERS: PCP Family Medicine; Visit Provider Family Medicine
DX: E78.2 Mixed hyperlipidemia (principal); E11.52 Type 2 diabetes mellitus with diabetic peripheral angiopathy with gangrene
CPT/HCPCS: 80053; 80061; 83036

== ENCOUNTER 2025-04-30 13:50 | Emergency (ER) | payer MEDICARE, SELFPAY ==
[2025-04-30] VITALS (8 sets, daily range): BP systolic 128–152; BP diastolic 74–98; PULSE 91–107; RESP 16–18; TEMP 36.7–37.2; O2SAT 95–99; BMI 19.9
--- NOTE | 2025-04-30 13:56 | ECG_ITS ---
APPROVED REPORT Exam: Resting ECG HR:108 bpm ECG Measurements Heart Rate 108 AXES MD 168 P 83 QRSd 97 QRS -52 QT 312 T 73 QTc 376 Conclusion SINUS TACHYCARDIA INCOMPLETE RIGHT BUNDLE BRANCH BLOCK [90+ ms QRS DURATION, TERMINAL R IN V1/V2, 40+ ms S IN I/aVL/V4/V5/V6] LEFT ANTERIOR FASCICULAR BLOCK [QRS AXIS <= -45, QR IN I, RS IN II] ABNORMAL ECG UNCONFIRMED REPORT Electronically signed by : JACK SAMPSON, 05/01/2025 01:09:39
--- NOTE | 2025-04-30 14:05 | CT_ITS ---
FINAL REPORT TECHNIQUE: After the administration of oral and intravenous contrast, axial images were obtained through the abdomen and pelvis by computed tomography. The study was performed with techniques to keep radiation dose as low as reasonably achievable, (ALARA). Individual dose reduction techniques using automated exposure control or adjustment of mA and/or kV according to the patient's size were employed. CLINICAL HISTORY: diffuse abd pain, n/v/d COMPARISON: 09/06/2021 FINDINGS: Abdomen: The lung bases are clear. The liver parenchyma is homogeneous. The gallbladder is not identified, probably surgically absent. There is mild intrahepatic and moderate extrahepatic biliary ductal dilatation. No stones are seen in the common duct but the duct measures up to 11 mm in diameter. The spleen, pancreas, and adrenals are unremarkable. There is a benign-appearing cyst in the left kidney. The aorta is normal in caliber. There is no free fluid or adenopathy. Pelvis: The appendix is normal. The urinary bladder is incompletely distended. There is significant vascular calcification of the common iliac arteries bilaterally and probable significant stenosis of the right common iliac artery. There is no free fluid or adenopathy. IMPRESSION: Intra and extrahepatic biliary ductal dilatation without definite choledocholithiasis. Vascular calcification of the common iliac arteries bilaterally with probable significant stenosis of the right common iliac artery. Reviewed, Interpreted and Dictated by Tamir Salmon MD Transcribed by Melba Aparicio Authenticated and [facility]
--- NOTE | 2025-04-30 14:08 | HMH.EDGENADL ---
Discharge Plan Disposition Patient Disposition: Home, Self-Care Condition: Good Prescriptions Prescriptions: New ondansetron 4 mg tablet,disintegrating 4 mg PO Q8H PRN (Reason: nausea and vomiting) 4 Days Qty: 12 1RF No Action Xarelto 2.5 mg tablet See Rx Instructions .ROUTE .COMPLEX Qty: 60 5RF Dose Instruction: TAKE ONE TABLET BY MOUTH 2 TIMES A DAY Rx Instructions: TAKE ONE TABLET BY MOUTH 2 TIMES A DAY aspirin [Adult Low Dose Aspirin] 81 mg tablet,delayed release (DR/EC) 81 mg PO DAILY empagliflozin 10 mg tablet 10 mg PO DAILY Rx Instructions: samples were given to patient due to being in the [facility] and he cant afford the meds right now rosuvastatin 20 mg tablet 20 mg PO DAILY Qty: 90 3RF potassium chloride 10 mEq capsule, extended release See Rx Instructions .ROUTE .COMPLEX Qty: 90 3RF Dose Instruction: TAKE 1 CAPSULE BY MOUTH THREE TIMES WEEKLY Rx Instructions: TAKE 1 CAPSULE BY MOUTH THREE TIMES WEEKLY (DME) blood-glucose meter Kit See Rx Instructions .ROUTE .MEDSUPPLY Qty: 1 0RF Rx Instructions: As directed or once daily, include test strips and lancets that insurance will pay for. lisinopril 2.5 mg tablet See Rx Instructions .ROUTE .COMPLEX Qty: 90 3RF Dose Instruction: TAKE ONE TABLET BY MOUTH ONCE A DAY FOR DIABETES Rx Instructions: TAKE ONE TABLET BY MOUTH ONCE A DAY FOR DIABETES bisoprolol fumarate 10 mg tablet See Rx Instructions .ROUTE .COMPLEX Qty: 90 3RF Dose Instruction: TAKE ONE TABLET BY MOUTH ONCE A DAY Rx Instructions: TAKE ONE TABLET BY MOUTH ONCE A DAY pantoprazole 40 mg tablet,delayed release (DR/EC) See Rx Instructions .ROUTE .COMPLEX Qty: 90 5RF Dose Instruction: TAKE ONE TABLET BY MOUTH AT BEDTIME Rx Instructions: TAKE ONE TABLET BY MOUTH AT BEDTIME hydrochlorothiazide 12.5 mg tablet See Rx Instructions .ROUTE .COMPLEX Qty: 30 4RF Dose Instruction: TAKE ONE TABLET BY MOUTH ONCE A DAY ON MONDAY, MONDAY, AND MONDAY Rx Instructions: TAKE ONE TABLET BY MOUTH ONCE A DAY ON MONDAY, MONDAY, AND MONDAY Referrals Follow up/Referrals: Leandro Shelton APRN [Primary Care Provider, Family Practice] - See instructions Al Torres II, MD [Staff Physician, Gastroenterology] - See instructions Conrad Ball MD [Staff Physician, Cardiology] - See instructions Activity Restrictions/Add. Instructions Additional Instructions/Restrictions: You were evaluated in the emergency department today. As we discussed, you have some dilation of the bile ducts in your liver, which recommend follow-up with GI. He also have some narrowing of the blood vessels in your abdomen, for which I recommend close follow-up with cardiology. Otherwise on labs, it looks like you are little bit dehydrated and have a low potassium, and you were given potassium and fluids today. Please pharmacy picking technician your prescription for Zofran and to take as needed for symptoms. Eat a bland diet until symptoms have resolved. Make sure you stay hydrated. Return to the emergency department for new or worsening symptoms Clinical Impressions Clinical Impression: Nausea vomiting and diarrhea, Abdominal pain, diffuse, Rapid weight loss, Dehydration, Hypokalemia, Bilateral iliac artery stenosis, Intrahepatic bile duct dilation Stand Alone Forms Stand Alone Forms: Work/School Release Instructions Patient Instructions: DI for Diarrhea and Traveler's Diarrhea -- Adult, DI for Nausea -- Adult Print Language Print Language: [place] Discharge ED Provider: Alexa Granda General Adult HPI <J Leandro Givens MD - Last Filed: 04/30/25 14:10> General Chief complaint: Nausea/Vomiting/Diarrhea Stated complaint: diarrhea, vomiting, weight loss, no appetite Time Seen by Provider: 04/30/25 13:54 History of Present Illness HPI narrative: Patient is a 64-year-old male presented with nausea vomiting diarrhea over the last 5 days with 10 pounds of unintentional weight loss from historical standpoint diffuse abdominal pain and just generalized weakness. States that he had a family member that was sick with similar things but she got over it. Denies any blood in the stool states that the stool has been very watery. Denies any recent antibiotic use hospitalizations etc. Related Data Home Medications ?Medication ?Instructions ?Recorded ?Confirmed aspirin 81 mg tablet,delayed 81 mg PO DAILY Heart Disease 05/31/19 04/30/25 release (Adult Low Dose Aspirin) empagliflozin 10 mg tablet 10 mg PO DAILY 07/11/24 04/30/25 Previous Rx's ?Medication ?Instructions ?Recorded rosuvastatin 20 mg tablet 20 mg PO DAILY #90 tabs 07/29/24 potassium chloride 10 mEq See Rx Instructions .Route 10/28/24 capsule,extended release .COMPLEX #90 caps blood-glucose meter #1 ea 09/24/24 lisinopril 2.5 mg tablet See Rx Instructions .Route 12/06/24 .COMPLEX #90 tabs bisoprolol fumarate 10 mg tablet See Rx Instructions .Route 01/07/25 .COMPLEX #90 tabs hydrochlorothiazide 12.5 mg tablet See Rx Instructions .Route 03/04/25 .COMPLEX #30 tabs pantoprazole 40 mg tablet,delayed See Rx Instructions .Route 03/04/25 release .COMPLEX #90 tabs rivaroxaban 2.5 mg tablet (Xarelto) See Rx Instructions .Route 04/08/25 .COMPLEX #60 tabs ondansetron 4 mg disintegrating 4 mg PO Q8H PRN nausea and 04/30/25 tablet vomiting 4 days #12 tabs Allergies Allergy/AdvReac Type Severity Reaction Status Date / Time No Known Allergies Allergy Verified 04/30/25 13:34 [facility] <J Leandro Givens MD - Last Filed: 04/30/25 14:10> [facility] Disclaimer: The information contained in this section may have been updated after the patient was seen, as this information can be updated by other users. Medical History (Updated 04/30/25 @ 16:41 by Alexa Granda DO) Nausea vomiting and diarrhea Peripheral neuropathy Diabetes mellitus, type 2 Positive colorectal cancer screening using Cologuard test Leg pain Cardiac defibrillator in place COPD exacerbation Claudication HTN (hypertension) New onset atrial fibrillation Bradycardia Surgical History History of cholecystectomy H/O right heart catheterization H/O neck surgery Family History Other Family history of myocardial infarction Lung cancer Social History Smoking Status: Never smoker smoking status stop date: 8 years ago alcohol intake: never counseling provided: none substance use type: denies use current occupational status: employed Travel in the last 8 weeks?: Inside the [place] household members: family housing: house current occupational exposures/hazards: No caffeine: Yes Have you lived/traveled outside [place] in past 30 days?: No Contact w/someone who lives/traveled outside US past 30 days?: No Exposure to someone with infectious disease in past 14 days?: No Do you have a fever (greater than 100.4 F or 38 C)?: No Have you tested positive for COVID-19?: No Exposed to someone with COVID-19 in past 14 days?: No Do you have a sore throat?: No Do you have a cough?: No Do you have any weakness?: Yes Do you have any diarrhea?: Yes Are you experiencing any unusual bleeding?: No Do you have any muscle aches/pain?: Yes Do you have any abdominal pain?: No Are you experiencing loss of taste or smell?: No Other Medical History Have you received the Flu Vaccine for this season: No Have you received the Pneumonia Vaccine: Yes <Wood Givens MD - Last Filed: 04/30/25 14:10> ROS Obtained: Yes All systems reviewed & no additional complaints except as documented Physical Exam <Wood Givens MD - Last Filed: 04/30/25 14:10> General General appearance: alert and in no apparent distress Respiratory Respiratory exam: Present normal lung sounds bilaterally Cardiovascular Cardiovascular exam: Present regular rate Abdominal Exam Abdominal exam: Present soft and tenderness (Diffuse abdominal tenderness maximal in the lower quadrants no rebound or guarding); Absent distention Neurological Exam Neurological exam: Present alert and oriented X3 Medical Decision Making <Wood Givens MD - Last Filed: 04/30/25 14:10> Medical Records Screening: Per USPSTF and CDC recommendations, given the prevalence of disease in our region, it is our hospital?s policy to screen for HIV and viral Hepatitis for all patients aged 18 and over and those with ongoing risk factors. Calvin Inquiry Pt receiving controlled substance: No Vital Signs: 04/30/25 14:04 04/30/25 14:08 04/30/25 14:13 Temperature 98.9 F 98.9 F Temperature Source Oral Oral Pulse Rate 107 H 104 H Pulse Rate [Right] 104 H Respiratory Rate 18 18 Blood Pressure 150/93 H 152/98 H Blood Pressure [Left Arm] 152/98 H Blood Pressure Mean [Left Arm] 116 Blood Pressure Source Automatic Cuff Blood Pressure Source [Left Arm] Automatic Cuff Blood Pressure Position Supine Blood Pressure Position [Left Arm] Supine 02 Sat by Pulse Oximetry 98 95 98 Oxygen Delivery Method Room Air Room Air 04/30/25 14:23 04/30/25 14:30 04/30/25 15:00 Temperature Temperature Source Pulse Rate 93 H 95 H Pulse Rate [Right] Respiratory Rate Blood Pressure 140/79 151/81 H Blood Pressure [Left Arm] Blood Pressure Mean [Left Arm] Blood Pressure Source Blood Pressure Source [Left Arm] Blood Pressure Position Blood Pressure Position [Left Arm] 02 Sat by Pulse Oximetry 98 95 97 Oxygen Delivery Method Room Air 04/30/25 15:30 04/30/25 17:15 Temperature 98.0 F Temperature Source Pulse Rate 91 H 96 H Pulse Rate [Right] Respiratory Rate 16 Blood Pressure 141/81 H 128/74 Blood Pressure [Left Arm] Blood Pressure Mean [Left Arm] Blood Pressure Source Blood Pressure Source [Left Arm] Blood Pressure Position Blood Pressure Position [Left Arm] 02 Sat by Pulse Oximetry 95 Oxygen Delivery Method Lab Data Lab Results 04/30/25 14:08: WBC 9.7, RBC 5.24, Hgb 15.7, Hct 44.6, MCV 85.1, MCH 30.0, MCHC 35.2, RDW 12.4, Plt Count 160, MPV 9.5, Neut % (Auto) 89.0 H, Lymph % (Auto) 7.3 L, [place] % (Auto) 2.0, Eos % (Auto) 0.7, Baso % (Auto) 0.5, Neut # (Auto) 8.7 H, Lymph # (Auto) 0.7, [place] # (Auto) 0.2, Eos # (Auto) 0.1, Baso # (Auto) 0.1, Sodium 134 L, Potassium 3.2 L, Chloride 94 L, Carbon Dioxide 28, Anion Gap 15.2 H, BUN 26 H, Creatinine 1.10, Estimated Creat Clear 63, Estimated GFR 68, Est GFR ( Amer) 82, Glucose 162 H, Calcium 9.0, Phosphorus 2.9, Magnesium 1.7, Total Bilirubin 0.7, AST 58, ALT 43, Alkaline Phosphatase 79, Troponin I < 0.01, Total Protein 7.9, Albumin 4.6, Globulin 3.3 H, Albumin/Globulin Ratio 1.4, HCV Ab HELGA w/Rflx PCR Qn Negative 04/30/25 16:04: Lactate 1.2 04/30/25 14:08 04/30/25 14:08 Orders (Tests/Meds): ED MEDICATIONS Discontinued Medications Generic Name Dose Route Start Last Admin Trade Name Mariangel PRN Reason Stop Dose Admin Lactated Ringer's 1,000 mls @ 999 mls/hr 04/30/25 14:15 04/30/25 14:19 Lactated Ringer's 1000 Ml Bag IV 04/30/25 15:15 999 mls/hr .Q1H1M CLARISSE Administration Lactated Ringer's 1,000 mls @ 999 mls/hr 04/30/25 15:44 04/30/25 15:56 Lactated Ringer's 1000 Ml Bag IV 04/30/25 16:44 999 mls/hr .Q1H1M ONE Administration Iopamidol 75 ml 04/30/25 14:50 04/30/25 14:50 Iopamidol-370 (76%);100ml Bottle IV 04/30/25 14:51 75 ml ONCE ONE Administration Morphine Sulfate 4 mg 04/30/25 14:05 04/30/25 14:19 Morphine 4mg/Ml Syringe IV 04/30/25 14:06 4 mg ONCE ONE Administration Ondansetron HCl 4 mg 04/30/25 14:05 04/30/25 14:19 Ondansetron 4mg/2ml Vial IV 04/30/25 14:06 4 mg ONCE ONE Administration Potassium Chloride 60 meq 04/30/25 15:44 04/30/25 15:56 Potassium Chloride 20meq Tab PO 04/30/25 15:45 60 meq ONCE ONE Administration Prochlorperazine Edisylate 5 mg 04/30/25 16:41 04/30/25 16:53 Prochlorperazine 10mg/2ml Vial IV 04/30/25 16:42 5 mg ONCE ONE Administration Sodium Chloride 10 ml 04/30/25 14:50 04/30/25 14:50 Sodium Chloride 0.9% 10ml Syr (Rad Only) IV 04/30/25 14:51 10 ml ONCE ONE Administration ORDERS Category Date Time Status CT abdomen pelvis w con Stat Cat Scan 04/30/25 14:05 Completed CBC w/Auto Diff [Complete Blood Count Auto Diff] Stat Lab 04/30/25 14:08 Completed CMP [Comprehensive Metabolic Panel] Stat Lab 04/30/25 14:08 Completed HIV Combo Stat Lab 04/30/25 14:08 Received Hepatitis C Ab Qual. W/ RFX Stat Lab 04/30/25 14:08 Completed Lactic Acid Stat Lab 04/30/25 16:04 Completed Magnesium Stat Lab 04/30/25 14:08 Completed Phosphorous Stat Lab 04/30/25 14:08 Completed Trop I [Troponin I] Stat Lab 04/30/25 14:08 Completed Medical Decision Narrative: Patient is a nontoxic 64-year-old presenting with 5 days of nausea vomiting diarrhea weight loss and diffuse abdominal pain and tenderness. Differential includes viral gastroenteritis, bacterial invasive or inflammatory species, inflammatory or ischemic colitis, diverticulitis etc. Will get a contrasted CT scan and attempt to get a diarrhea PCR panel basic blood work administer IV fluids nausea medicine and reassess. Care will be transitioned to Dr. Granda at 3 PM. <Alexa Granda, DO - Last Filed: 04/30/25 17:48> Vital Signs: 04/30/25 14:04 04/30/25 14:08 04/30/25 14:13 Temperature 98.9 F 98.9 F Temperature Source Oral Oral Pulse Rate 107 H 104 H Pulse Rate [Right] 104 H Respiratory Rate 18 18 Blood Pressure 150/93 H 152/98 H Blood Pressure [Left Arm] 152/98 H Blood Pressure Mean [Left Arm] 116 Blood Pressure Source Automatic Cuff Blood Pressure Source [Left Arm] Automatic Cuff Blood Pressure Position Supine Blood Pressure Position [Left Arm] Supine 02 Sat by Pulse Oximetry 98 95 98 Oxygen Delivery Method Room Air Room Air 04/30/25 14:23 04/30/25 14:30 04/30/25 15:00 Temperature Temperature Source Pulse Rate 93 H 95 H Pulse Rate [Right] Respiratory Rate Blood Pressure 140/79 151/81 H Blood Pressure [Left Arm] Blood Pressure Mean [Left Arm] Blood Pressure Source Blood Pressure Source [Left Arm] Blood Pressure Position Blood Pressure Position [Left Arm] 02 Sat by Pulse Oximetry 98 95 97 Oxygen Delivery Method Room Air 04/30/25 15:30 04/30/25 17:15 Temperature 98.0 F Temperature Source Pulse Rate 91 H 96 H Pulse Rate [Right] Respiratory Rate 16 Blood Pressure 141/81 H 128/74 Blood Pressure [Left Arm] Blood Pressure Mean [Left Arm] Blood Pressure Source Blood Pressure Source [Left Arm] Blood Pressure Position Blood Pressure Position [Left Arm] 02 Sat by Pulse Oximetry 95 Oxygen Delivery Method Lab Data Lab Results 04/30/25 14:08: WBC 9.7, RBC 5.24, Hgb 15.7, Hct 44.6, MCV 85.1, MCH 30.0, MCHC 35.2, RDW 12.4, Plt Count 160, MPV 9.5, Neut % (Auto) 89.0 H, Lymph % (Auto) 7.3 L, [place] % (Auto) 2.0, Eos % (Auto) 0.7, Baso % (Auto) 0.5, Neut # (Auto) 8.7 H, Lymph # (Auto) 0.7, [place] # (Auto) 0.2, Eos # (Auto) 0.1, Baso # (Auto) 0.1, Sodium 134 L, Potassium 3.2 L, Chloride 94 L, Carbon Dioxide 28, Anion Gap 15.2 H, BUN 26 H, Creatinine 1.10, Estimated Creat Clear 63, Estimated GFR 68, Est GFR ( Amer) 82, Glucose 162 H, Calcium 9.0, Phosphorus 2.9, Magnesium 1.7, Total Bilirubin 0.7, AST 58, ALT 43, Alkaline Phosphatase 79, Troponin I < 0.01, Total Protein 7.9, Albumin 4.6, Globulin 3.3 H, Albumin/Globulin Ratio 1.4, HCV Ab HELGA w/Rflx PCR Qn Negative 04/30/25 16:04: Lactate 1.2 Orders (Tests/Meds): ED MEDICATIONS Discontinued Medications Generic Name Dose Route Start Last Admin Trade Name Freq PRN Reason Stop Dose Admin Lactated Ringer's 1,000 mls @ 999 mls/hr 04/30/25 14:15 04/30/25 14:19 Lactated Ringer's 1000 Ml Bag IV 04/30/25 15:15 999 mls/hr .Q1H1M CLARISSE Administration Lactated Ringer's 1,000 mls @ 999 mls/hr 04/30/25 15:44 04/30/25 15:56 Lactated Ringer's 1000 Ml Bag IV 04/30/25 16:44 999 mls/hr .Q1H1M ONE Administration Iopamidol 75 ml 04/30/25 14:50 04/30/25 14:50 Iopamidol-370 (76%);100ml Bottle IV 04/30/25 14:51 75 ml ONCE ONE Administration Morphine Sulfate 4 mg 04/30/25 14:05 04/30/25 14:19 Morphine 4mg/Ml Syringe IV 04/30/25 14:06 4 mg ONCE ONE Administration Ondansetron HCl 4 mg 04/30/25 14:05 04/30/25 14:19 Ondansetron 4mg/2ml Vial IV 04/30/25 14:06 4 mg ONCE ONE Administration Potassium Chloride 60 meq 04/30/25 15:44 04/30/25 15:56 Potassium Chloride 20meq Tab PO 04/30/25 15:45 60 meq ONCE ONE Administration Prochlorperazine Edisylate 5 mg 04/30/25 16:41 04/30/25 16:53 Prochlorperazine 10mg/2ml Vial IV 04/30/25 16:42 5 mg ONCE ONE Administration Sodium Chloride 10 ml 04/30/25 14:50 04/30/25 14:50 Sodium Chloride 0.9% 10ml Syr (Rad Only) IV 04/30/25 14:51 10 ml ONCE ONE Administration ORDERS Category Date Time Status CT abdomen pelvis w con Stat Cat Scan 04/30/25 14:05 Completed CBC w/Auto Diff [Complete Blood Count Auto Diff] Stat Lab 04/30/25 14:08 Completed CMP [Comprehensive Metabolic Panel] Stat Lab 04/30/25 14:08 Completed HIV Combo Stat Lab 04/30/25 14:08 Received Hepatitis C Ab Qual. W/ RFX Stat Lab 04/30/25 14:08 Completed Lactic Acid Stat Lab 04/30/25 16:04 Completed Magnesium Stat Lab 04/30/25 14:08 Completed Phosphorous Stat Lab 04/30/25 14:08 Completed Trop I [Troponin I] Stat Lab 04/30/25 14:08 Completed Medical Decision Narrative: Patient is a nontoxic 64-year-old presenting with 5 days of nausea vomiting diarrhea weight loss and diffuse abdominal pain and tenderness. Differential includes viral gastroenteritis, bacterial invasive or inflammatory species, inflammatory or ischemic colitis, diverticulitis etc. Will get a contrasted CT scan and attempt to get a diarrhea PCR panel basic blood work administer IV fluids nausea medicine and reassess. Care will be transitioned to Dr. Granda at 3 PM. Jesus Alberto DO: On my assessment of the patient, he is resting comfortably in bed in no acute distress. He complains of some mild nausea but has had no vomiting, no diarrhea. He is not able to provide a stool specimen here. Abdominal exam is benign. I independently interpreted CT scan prior to radiology read and noted no obvious colonic inflammation or concerns for diverticulitis. Please see radiology read for final interpretation. They did note bilateral iliac artery stenosis, right greater than left, and also intra and extrahepatic biliary ductal dilatation. I notified patient of these. He has normal liver enzymes and normal bilirubin and has no concerns for bowel ischemia based on workup or exam, so I feel that he is appropriate for outpatient follow-up with both cardiology and GI. He is able to tolerate oral intake. He was found to have mild hypokalemia, which oral repletion was ordered. He also was given a bolus of IV fluids given mild dehydration noted on lab evaluation with very mildly elevated anion gap, mild hyponatremia, mildly elevated BUN. Ultimately after given reassuring history, exam, and improvement in symptoms, I feel he is appropriate for discharge home with prescription for Zofran to treat presumed infectious gastroenteritis. He thinks is because of bad meat that he ate last week. He was given strict return precautions as well as instructions for close follow-up Critical Care <Wood Givens MD - Last Filed: 04/30/25 14:10> Critical Care Time Critical Care Time: No
--- OUTSIDE RECORDS SUMMARY | 2025-04-30 14:12 | XMS_ITS | Encounter Summary ---
Author Organization Healthcare Address [address] [id number] Care Team Providers Care Shredder Tender Peat Name Role Phone Mary Butler Primary Care Provider [phone] Encounter Details Date Type Department Care Team (Late st Contact Info) Description 04/28/2023 Orders Only External Location [address] [place] [address] Baldomero Ivy PA [facility] [place] [address] Social History Tobacco Use Types Packs/Day Years Used Date Smoking Tobacco: Former Alcohol Use Standard Drinks/Week Comments No 0 (1 standard drink = 0.6 oz pur e alcohol) Sex and Gender Information Value Date Recorded Sex Assigned at Not on file Legal Sex Male 7:42 PM EDT Gender Identity Not on file Sexual Orientation Not on file documented as of this encounter Plan of Treatment Not on file documented as of this encounter Procedures Procedure Name Priority Date/Time Associated Diagnosis Comments US OUTSIDE IMAGES 04/28/2023 1:03 PM EDT documented in this encounter Results * US OUTSIDE IMAGES (04/28/2023 1:03 PM EDT) Anatomical Region Laterality Modality Ultrasound 04/28/2023 1:03 PM EDT us Baldomero PRECIADO IMOriana US PROCEDURES Final Result documented in this encounter Visit Diagnoses Not on filedocumented in this encounter Care Teams Shredder Tender Peat Relationship Specialty Start Date End Date Mary Butler PA [address] [place] [address] PCP - General 04/02/21 documented as of this encounter
--- OUTSIDE RECORDS SUMMARY | 2025-04-30 14:12 | XMS_ITS | Encounter Summary ---
Author Organization Healthcare Address [address] [place] [address] Care Team Providers Care Airdrop Systems Technician Name Role Phone Mary Butler Primary Care Provider [phone] Encounter Details Date Type Department Care Team ([facility] st Contact Info) Description 05/18/2023 Orders Only External Location [address] [place] [address] Provider, External Social History Tobacco Use Types Packs/Day Years [...] Procedure Name Priority Date/Time Associated Diagnosis Comments IR OUTSIDE IMAGES 05/18/2023 7:15 AM EDT documented in this encounter Results * IR OUTSIDE IMAGES (05/18/2023 7:15 AM EDT) Anatomical Region Laterality Modality X-Ray Angiograph y 05/18/2023 7:15 AM EDT us External Provider IMG IR PROCEDURES Final Result documented in this encounter Visit Diagnoses Not on filedocumented in this encounter Care Teams Airdrop Systems Technician Relationship Specialty Start Date End Date Mary Butler PA [address] [place] [address] PCP - General 04/02/21 documented as of this encounter
--- OUTSIDE RECORDS SUMMARY | 2025-04-30 14:12 | XMS_ITS | Clinical Summary ---
Author Organization [facility] Address [address] [place] [address] Care Team Providers Care Stevedoring Supervisor Name Role Phone Mary Butler Primary Care Provider [phone] Allergies No known active allergies Medications aspirin 81 MG EC tablet Take 1 tablet (81 mg) by mouth 1 (one) time each day. Active Jardiance 10 MG 05/19/2023 Act vladimir bisoprolol (Zebeta) 10 MG tablet 05/03/2023 Active isosorbide mononitrate ER (Imdur) 30 MG 24 hr tablet 05/26/2023 Active hydroCHLOROthiaz cassie (HYDRODiuril) 12.5 MG tablet 05/03/2023 Acti ve pantoprazole (Protonix) 40 MG EC tablet 05/19/2023 Active atorvastatin (Lipitor) 40 MG tablet Take 1 tablet (40 mg) by mouth 1 (one) time each day. 08/04/2017 Active amLODIPine (Norvasc) 2.5 MG tablet 07/17/2023 Active clopidogrel (Plavix) 75 MG tablet 12/08/2023 Active lisinopril 2.5 MG tablet 12/08/2023 Active Xarelto 2.5 MG tablet 12/08/2023 Active potassium chloride ER (Micro-K) 10 MEQ ER capsule Take 1 capsule (10 mEq) by mouth 3 (three) times a week. 03/25/2024 Active Active Problems Problem Noted Date Diagnosed Date Paroxysmal atrial fibrillation 07/31/2019 Sick sinus syndrome 07/31/2019 Hyperlipidemia 07/05/2017 Weight loss 05/11/2017 Carotid artery disease 05/09/2017 Coronary artery disease invo lving [place] coronary artery of [place] heart without angina pectoris 05/09/2017 Diabetes 05/09/2017 Family History Medical History Relation Name Comments Conversions - Other Father CAD (cor onary artery disease), [place] coronary artery Diabetes Father Stroke Father Thyroid cancer Father Conversions - Other Mother CAD (cor onary artery disease), [place] coronary artery Diabetes Mother Relation Name Status Comments Father Mother Social History Tobacco Use Types Packs/Day Years Used Date Smoking Tobacco: Former Cigarettes 2 35 1 982 - 2017 Passive Smoke Exposure: Past Smokeless Tobacco: Never Tobacco Cessation:Counseling Given: No Alcohol Use Standard Drinks/Week Comments No 0 (1 standard drink = 0.6 oz pur e alcohol) Sex and Gender Information Value Date Recorded Sex Assigned at Not on file Legal Sex Male 7:42 PM EDT Gender Identity Not on file Sexual Orientation Not on file Last Filed Vital Signs Vital Sign Reading Time Taken Comments Blood Pressure 125/84 06/13/2024 12:57 PM EDT Pulse 80 06/13/2024 12:57 PM EDT Temperature 36.4 C (97.6 F) 06/13/2024 12:48 PM EDT Respiratory Rate 20 12/18/2023 1:21 PM EST Oxygen Saturation - - Inhaled Oxygen Concentration - - Weight 69.1 kg (152 lb 5.4 oz) 06/13/2024 12:48 PM EDT Height 172.7 cm (5' 8 ) 06/13/2024 12:48 PM EDT Body Mass Index 23.16 06/13/2024 12:48 PM EDT Plan of Treatment Health Maintenance Due Date Last Done Comments [facility]-Depression Screening 1961 [facility]-HIV Screening 1961 [facility]-Hepatitis C Screening 1961 [facility]-Medicare Annual Wellness (AWV) 1961 [facility]-/Child/Adol SDOH Screenings 1961 Diabetes: Dental Exam 1971 [facility]- SDOH Screenings 1979 [facility]-Adult SDOH Screenings 1979 [facility]-Pneumococcal Vaccine: 50+ Years (1 of 2 - PCV) 1980 [facility]-DTaP,Tdap,and Td Vaccines (1 - Tdap) 01/26/1997 01/25/1997 CT Colonography 2006 Colonoscopy 2006 FIT-DNA 2006 FIT 2006 FOBT 2006 Sigmoidoscopy 2006 [facility]-Colorectal Cancer Screening 2006 [facility]-Zoster Vaccines (1 of 2) 2011 [facility]-Diabetes: Hemoglobin A1C 09/19/2017 03/22/2017 [facility]-Lung Cancer Screening 05/25/2018 05/25/2017 [id number] Vaccine ( season) 2024 10/07/2021, 12/16/2020, 11/16/2020 [facility]-Influenza Vaccine (Season Ended) 2025 10/19/2022, 09/09/2021, 08/17/2020, Additional history exists [facility]-RSV Vaccine: 60+ Years or (1 - 1-dose 75+ series) 2036 HPV Vaccines Aged Out No longer eligi ble based on patient's age to complete this topic [facility]-HIB Vaccines Aged Out No longer e ligible based on patient's age to complete this topic [facility]-Hepatitis A Vaccines Aged Out No longer eligible based on patient's age to complete this topic [facility]-IPV Vaccines Aged Out No longer e ligible based on patient's age to complete this topic [facility]-Rotavirus Vaccines Aged Out No lo nger eligible based on patient's age to complete this topic Procedures Procedure Name Priority Date/Time Associated Diagnosis Comments CT CHEST W IV CONTRAST Routine 05/25/2017 10:55 AM EDT HEMOGLOBIN A1C Routine 03/22/2017 5:32 AM EDT from Last 3 Months or Most Recently Relevant to Health Maintenance Results * CT Chest w IV Contrast (05/25/2017 10:55 AM EDT) Anatomical Region Laterality Modality Chest Computed Tomogra phy Narrative 05/25/2017 1:49 PM EDT REQUESTING PHYSICIAN: CHASE BRADEN REASON FOR EXAMINATION/PROCEDURE: Abnormal weight loss EXAMINATION / PROCEDURE: CT Chest W IVCON May 25 2017 - 10:55 CLINICAL INDICATION: Abnormal weight loss TECHNIQUE: Multiple CT helical i mages were obtained from thoracic inlet through upper abdomen with administration of IV contrast. 99 mL of Omnipaque-300 were administered intravenously. Total DLP (Dose-Length Product): 1316. Please note: The reported value represents t he total of one or more individual components during the CT acquisition on this date and at this time, and as such, the same value may appear in more than one CT report depending on the interpreting/reporting physicians. COMPARISON: None. FINDINGS: Mediastinum and Pleura: No mediastinal or hilar adenopathy. No pleural or pericardial effusion. Significant burden of multivessel multifocal coronary artery calcifications. Lungs: Mild smoking-related upper lung predominant emphysem a. Associated features of mild bilateral chronic bronchitis. No discrete suspicious lung lesions. No acute airspace disease. Upper Abdomen: Please see CT abdomen and pelvis report from the same date. Musculoskeletal: No suspicious lytic or s clerotic lesion. IMPRESSION: No evidence of neoplastic disease within the chest. Smoking induced emphysema. Significant burden of multivessel multifocal coronary artery calcifications. CRITICAL RESULT: No. COMMUNICATION: Per this wri tten report. ATTESTATION: Not Applicable. Verified by: RAH NEWSOME M.D. on May 25 2017 1:48P Transcribed by: PSCGenie May 25 2017 1:43P Dictated by: RAH NEWSOME M.D. on May 25 2017 1:43P Procedure Note Rah Newsome - 03/14/2021 REQUESTING PHYSICIAN: CHASE BRADEN REASON FOR EXAMINATION/PROCEDURE: Abnormal weight loss EXAMINATION / PROCEDURE: CT Chest W IVCON May 25 2017 - 10:55 CLINICAL INDICATION: Abnormal weight loss TECHNIQUE: Multiple CT helical i mages were obtained from thoracic inlet through upper abdomen with administration of IV contrast. 99 mL of Omnipaque-300 were administered intravenously. Total DLP (Dose-Length Product): 1316. Please note: The reported value represents t he total of one or more individual components during the CT acquisition on this date and at this time, and as such, the same value may appear in more than one CT report depending on the interpreting/reporting physicians. COMPARISON: None. FINDINGS: Mediastinum and Pleura: No mediastinal or hilar adenopathy. No pleural or pericardial effusion. Significant burden of multivessel multifocal coronary artery calcifications. Lungs: Mild smoking-related upper lung predominant emphysem a. Associated features of mild bilateral chronic bronchitis. No discrete suspicious lung lesions. No acute airspace disease. Upper Abdomen: Please see CT abdomen and pelvis report from the [facility]. Musculoskeletal: No suspicious lytic or s clerotic lesion. IMPRESSION: No evidence of neoplastic disease within the chest. Smoking induced emphysema. Significant burden of multivessel multifocal coronary artery calcifications. CRITICAL RESULT: No. COMMUNICATION: Per this wri tten report. ATTESTATION: Not Applicable. Verified by: RAH NEWSOME M.D. on May 25 2017 1:48P Transcribed by: HILARIO May 25 2017 1:43P Dictated by: RAH NEWSOME M.D. on May 25 2017 1:43P Chase Braden MD IMG CT PROCEDURES Final Resu lt * Hemoglobin A1c (03/22/2017 5:32 AM EDT) Hemoglobin A1c 5.7 4.7 - 6.0 % SUNQUEST Comment: (NOTE) Glycohemoglobin Reference Range, 0 years and up: 4.7 - 6.0% . Hemoglobin A1c values of 5.7 - 6.4% indicate an increased risk for developing diabetes mellitus (prediabetes). Hemoglobin A1c values greater than or equal to 6.5% are diagnostic of diabetes mellitus. . HbA1c assay performed by an ion-exchange chromatography method that is certified traceable to the DCCT. 03/22/2017 5:32 AM EDT 03/22/2017 5:44 AM EDT Historical Provider LAB BLOOD ORDERABLES Daniela lopez Result SUNQUEST from Last 3 Months or Most Recently Relevant to Health Maintenance Insurance Care Teams Stevedoring Supervisor Relationship Specialty Start Date End Date Mary Butler PA [address] [place] [address] PCP - General 04/02/21
[2025-04-30 14:18] LABS: Basophils # 0.1 K/mm3 (0-0.2); Basophils % 0.5 % (0.1-2.0); Eosinophils # 0.1 Kmm3 (0.0-0.4); Eosinophils % 0.7 % (0.1-12.0); Hematocrit 44.6 % (42.0-52.0); Hemoglobin 15.7 g/dL (14.1-18.0); Immature Granulocytes # 0.05 10^3uL; Immature Granulocytes % 0.5 %; Lymphocytes # 0.7 K/mm3 (0.7-4.5); Lymphocytes % 7.3 % (10-50); Mean Corpuscular HGB Conc 35.2 g/dL (31.8-35.4); Mean Corpuscular Volume 85.1 fl (80-94); Mean Platelet Volume 9.5 fl (7.4-10.4); Monocytes # 0.2 K/mm3 (0.1-1.0); Neutrophils # 8.7 K/mm3 (1.8-7.8); Nucleated Red Blood Cells # 0 10^3/uL; Nucleated Red Blood Cells % 0 %; Platelet Count 160 K/mm3 (142-424); Red Blood Count 5.24 M/mm3 (4.60-6.20); Red Cell Distribution Width 12.4 % (11.5-17.5); Red Cell Distribution Width-SD 38.6 fL; White Blood Count 9.7 K/mm3 (4.8-10.8)
[2025-04-30] MEDS: LACTATED RINGERS 1000ML 1,000 ML 999 ML IV ×2 (14:19→15:56)
[2025-04-30] MEDS: ONDANSETRON 4MG/2ML VIAL 4 MG IV (14:19)
[2025-04-30] MEDS: MORPHINE 4MG/ML SYRINGE 4 MG IV (14:19)
[2025-04-30 14:34] LABS: Magnesium 1.7 mg/dl (1.6-2.3); Phosphorous 2.9 mg/dl (2.5-4.5)
[2025-04-30 14:35] LABS: Alanine Aminotransferase 43 U/L (12-78); Albumin Level 4.6 g/dl (3.5-5.0); Albumin/Globulin Ratio 1.4 (1.1-1.8); Alkaline Phosphatase 79 U/L (38-126); Anion Gap 15.2 mEq/L (5-15); Aspartate Amino Transferase 58 U/L (17-59); Bilirubin,Total 0.7 mg/dl (0.2-1.3); Blood Urea Nitrogen 26 mg/dl (9-20); Carbon Dioxide 28 mmol/L (22.0-30.0); Chloride 94 mmol/L (98-107); Creatinine Clearance Estimated 63 mL/min (50-200); Estimated Glomerular Filt Rate 68 ml/min (>60); GFR (African American) 82 ML/MIN (>60); Globulin 3.3 g/dL (1.3-3.2); Glucose 162 mg/dl (74-100); Potassium 3.2 mmoL/L (3.5-5.1); Sodium 134 mmol/L (136-145); Total Protein,Serum 7.9 g/dl (6.3-8.2)
--- NOTE | 2025-04-30 14:45 | PC.NURSE ---
pt resting with lights out. vitals stable. no needs at this time. call roman within reach.
[2025-04-30] MEDS: IOPAMIDOL-370 (76%);100ML BOTTLE 75 ML IV (14:50)
[2025-04-30] MEDS: SODIUM CHLORIDE 0.9% 10ML SYR (RAD ONLY) 10 ML IV (14:50)
[2025-04-30 14:51] LABS: Troponin I < 0.01 ng/ml (0.00-0.034)
[2025-04-30 15:51] LABS: Hepatitis C Ab Qual. W/ RFX NEGATIVE (Negative)
[2025-04-30] MEDS: POTASSIUM CHLORIDE 20MEQ TAB 60 MEQ PO (15:56)
--- NOTE | 2025-04-30 16:00 | PC.NURSE ---
pt resting in bed. no needs at this time. vitals stable. call light within reach.
[2025-04-30 16:18] LABS: Lactic Acid 1.2 mmol/L (0.7-2.1)
[2025-04-30] MEDS: PROCHLORPERAZINE 10MG/2ML VIAL 5 MG IV (16:53)
[2025-05-01 04:23] LABS: HIV Combo NEGATIVE (Negative)
== END 2025-04-30 17:16 | disposition home or self-care (01) ==
PROVIDERS: Student in an Organized Health Care Education/Training Program; Emergency Provider Emergency Medicine; PCP Nurse Practitioner Family
DX: R10.84 Generalized abdominal pain (principal); E86.0 Dehydration; R11.2 Nausea with vomiting, unspecified; E87.6 Hypokalemia; R00.0 Tachycardia, unspecified; Z11.59 Encounter for screening for other viral diseases; Z11.4 Encounter for screening for human immunodeficiency virus [HIV]
CPT/HCPCS: 74177; 80053; 80074; 83605; 83735; 84100; 84484; 85025; 87389; 93005; 96361; 96374; 96375; 99285; J0780; J2270; J2405; J7120; Q9967

== ENCOUNTER 2025-05-05 11:00 | Outpatient (CLI) | payer MEDICARE, SELFPAY ==
[2025-05-05 19:40] LABS: Alanine Aminotransferase 85 U/L (12-78); Albumin Level 4.1 g/dl (3.5-5.0); Albumin/Globulin Ratio 1.6 (1.1-1.8); Alkaline Phosphatase 57 U/L (38-126); Anion Gap 7.4 mEq/L (5-15); Aspartate Amino Transferase 31 U/L (17-59); Bilirubin,Total 0.4 mg/dl (0.2-1.3); Blood Urea Nitrogen 15 mg/dl (9-20); Calcium 9.4 mg/dl (8.4-10.2); Carbon Dioxide 36 mmol/L (22.0-30.0); Chloride 99 mmol/L (98-107); Estimated Glomerular Filt Rate 85 ml/min (>60); GFR (African American) 103 ML/MIN (>60); Globulin 2.6 g/dL (1.3-3.2); Glucose 105 mg/dl (74-100); Potassium 3.4 mmoL/L (3.5-5.1); Sodium 139 mmol/L (136-145); Total Protein,Serum 6.7 g/dl (6.3-8.2)
[2025-05-05 19:42] LABS: Creatinine,Urine Random 123 mg/dL (Not Estab.)
[2025-05-05 19:52] LABS: Microalbumin/Creatinine Ratio 25.6
--- OUTSIDE RECORDS SUMMARY | 2025-05-06 11:31 | XMS_ITS | Encounter Summary ---
Author Organization Healthcare Address [address] [id number] Care Team Providers Care Radiation Oncologist Name Role Phone Mary Butler Primary Care Provider [phone] Encounter Details Date Type Department Care Team (Late st Contact Info) Description 04/28/2023 Orders Only External Location [address] [place] [address] Baldomero Ivy PA [facility] [place] [address] Social History Tobacco Use Types Packs/Day Years [...] on filedocumented in this encounter Care Teams Radiation Oncologist Relationship Specialty Start Date End Date Mary Butler PA [address] [place] [address] PCP - General 04/02/21 documented as of this encounter
--- OUTSIDE RECORDS SUMMARY | 2025-05-06 11:31 | XMS_ITS | Encounter Summary ---
Author Organization Healthcare Address [address] [place] [address] Care Team Providers Care Shelter Advocate Name Role Phone Mary Butler Primary Care Provider [phone] Encounter Details Date Type Department Care Team ([facility] st Contact Info) Description 05/18/2023 Orders Only External Location [address] [place] [address] Provider, External Social History Tobacco Use Types [...] on filedocumented in this encounter Care Teams Shelter Advocate Relationship Specialty Start Date End Date Mary Butler PA [address] [place] [address] PCP - General 04/02/21 documented as of this encounter
--- OUTSIDE RECORDS SUMMARY | 2025-05-06 11:31 | XMS_ITS | Clinical Summary ---
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 without angina pectoris 05/09/2017 Diabetes 05/09/2017 Family History Medical History Relation Name Comments Conversions - Other Father CAD (cor onary artery disease), [place] coronary artery Diabetes Father Stroke Father Thyroid cancer Father Conversions - Other Mother CAD (cor onary artery disease), [place] coronary artery Diabetes Mother Relation Name Status [...] 09/19/2017 03/22/2017 [facility]-Lung Cancer Screening 05/25/2018 05/25/2017 [id number] Vaccine ( season) 2024 10/07/2021, 12/16/2020, 11/16/2020 [...] Relevant to Health Maintenance Insurance Care Teams Carbon Brush Maker Relationship Specialty Start Date End Date Mary Butler PA [address] [place] [address] PCP - General 04/02/21
== END 2025-05-05 23:59 | disposition home or self-care (01) ==
LOC: LAB.DROPOF 05-06 11:29
PROVIDERS: PCP Family Medicine; Visit Provider Family Medicine
DX: E11.52 Type 2 diabetes mellitus with diabetic peripheral angiopathy with gangrene (principal)
CPT/HCPCS: 80053; 82043; 82570; 83036

== ENCOUNTER 2025-07-08 10:40 | Outpatient (CLI) | payer MEDICARE, SELFPAY ==
--- OUTSIDE RECORDS SUMMARY | 2025-05-28 13:30 | XMS_ITS | Encounter Summary ---
Author Organization [facility] Address [address] [place] [id number] Care Team Providers Care Food Processor Name Role Phone Mary Butler Primary Care Provider Reason for Visit * Reason Comments PAF (paroxysmal atrial fibrillation) Encounter Details Date Type Department Care Team (Late st Contact Info) Description 05/28/2025 1:30 PM EDT Office Visit [facility] [address] [facility] [address] [place] [phone] Bravo Michel MD [address] [facility] [address] [place] [address] Paroxysmal atrial fibrillation (Primary Dx); Sick sinus syndrome; Coronary artery disease involving [place] coronary artery of [place] heart without angina pectoris; Rectal bleeding Social History Tobacco Use Types Packs/Day Years Used Date Smoking Tobacco: Former Cigarettes 0 07/31/1979 - 2016 Smokeless Tobacco: Never Alcohol Use Standard Drinks/Week Comments No 0 (1 standard drink = 0.6 oz pur e alcohol) AUDIT-C Answer Date Recorded Frequency of Alcohol Consumption Never 07/31/2019 Average Number of Drinks Not on file 019 Frequency of Binge Drinking Not on file 07/21 Sex and Gender Information Value Date Recorded Sex Assigned at Not on file Legal Sex Male 1:04 PM EDT Gender Identity Not on file Sexual Orientation Not on file documented as of this encounter Last Filed Vital Signs Vital Sign Reading Time Taken Comments Blood Pressure 118/58 05/28/2025 1:02 PM EDT Pulse 75 05/28/2025 1:02 PM EDT Temperature - - Respiratory Rate - - Oxygen Saturation 95% 05/28/2025 1:02 PM EDT Inhaled Oxygen Concentration - - Weight 66.2 kg (146 lb) 05/28/2025 1:02 PM EDT Height 172.7 cm (5' 8 ) 05/28/2025 1:02 PM EDT Body Mass Index 22.2 05/28/2025 1:02 PM EDT documented in this encounter Progress Notes * Bravo Michel MD - 05/28/2025 1:30 PM EDTAssociated Order(s): ECG 12 Lead Post-Procedure Diagnose(s): Sick sinus syndrome; Rectal bleeding; Paroxysmal atrial fibrillation; Coronary artery disease involving [place] coronary artery of [place] heart without angina pectoris Marcell Manning 1960 Home phone not available 05/28/2025 [facility] Referring Provider: No ref. provider found Mary Butler PA [address] [place] [phone] Chief Complaint Patient presents with PAF (paroxysmal atrial fibrillation) Problem List: Paroxysmal Atrial Fibrillation CHADSVasc = 2 - 4 (HTN, CAD, ?? History of TIA) Rectal Bleeding/Hemorrhoids Occurred on Xarelto after 2 months duration- now discontinued 12/2018 Patient deferred GI work up Symptomatic Bradycardia: [facility] [place] Implant 11/09/2018- Dr. Ball. CAD: [facility] with JUANITA 2016 [facility] 12/04/18: with patent stents Lexiscan Stress Test 06/13/2019: no reversible ischemia, EF 65% HTN HLP Carotid Artery Disease S/p right carotid endarterectomy CARLIE - has not received CPAP GERD Previous tobacco - quit 2016 Possible History of TIA- 2017 - data deficit Surgical History: Tonsillectomy Carotid endarterectomy Allergies No Known Allergies Current Medications Current Outpatient Medications: aspirin 81 MG EC tablet, Take 1 tablet by mouth Daily., Disp: , Rfl: bisoprolol (ZEBeta) 10 MG tablet, Take 1 tablet by mouth Daily., Disp: , Rfl: Buprenorphine HCl-Naloxone HCl (ZUBSOLV SL), Place under the tongue., Disp: , Rfl: carbonyl iron (FEOSOL) 45 MG tablet tablet, Take by mouth Daily., Disp: , Rfl: clopidogrel (PLAVIX) 75 MG tablet, Take 1 tablet by mouth Daily., Disp: , Rfl: hydrochlorothiazide (HYDRODIURIL) 12.5 MG tablet, Take 1 tablet by mouth Daily., Disp: , Rfl: isosorbide mononitrate (IMDUR) 30 MG 24 hr tablet, Take 1 tablet by mouth Daily., Disp: , Rfl: Jardiance 10 MG tablet tablet, Take 1 tablet by mouth Daily., Disp: , Rfl: lisinopril (PRINIVIL,ZESTRIL) 2.5 MG tablet, Take 1 tablet by mouth Daily., Disp: , Rfl: ondansetron ODT (ZOFRAN-ODT) 4 MG disintegrating tablet, Place 1 tablet on the tongue Every 8 (Eight) Hours As Needed for Nausea or Vomiting., Disp: , Rfl: pantoprazole (PROTONIX) 40 MG EC tablet, Take 1 tablet by mouth every night at bedtime., Disp: , Rfl: potassium chloride (MICRO-K) 10 MEQ CR capsule, Take 1 capsule by mouth 3 (Three) Times a Week., Disp: , Rfl: rosuvastatin (CRESTOR) 20 MG tablet, Take 1 tablet by mouth Daily., Disp: , Rfl: Xarelto 2.5 MG tablet, Take 1 tablet by mouth 2 (Two) Times a Day., Disp: , Rfl: History of Present Illness Pt presents for follow up of PAF/SSS/HTN/CAD. Since we last saw the pt, pt states that from a cardiac standpoint overall he has done reasonably well. He does note palpitations on occasion relatively short-lived. He is biggest complaint is his pain in his legs with exertional activities which has been a chronic issue. He has been compliant with his medical therapy. Denies any hospitalizations, ER visits, bleeding, or TIA/CVA symptoms. Blood pressure is well-controlled. Vitals: 05/28/25 1302 BP: 118/58 BP Location: Left arm Patient Position: Sitting Cuff Size: Adult Pulse: 75 SpO2: 95% Weight: 66.2 kg (146 lb) Height: 172.7 cm (68 ) Body mass index is 22.2 kg/m??. PE: General: NAD Neck: no JVD, no carotid bruits, no TM Heart RRR, NL S1, S2, S4 present, no rubs, murmurs Lungs: CTA, no wheezes, rhonchi, or rales Abd: soft, non-tender, NL BS Ext: No musculoskeletal deformities, no edema, cyanosis, or clubbing Psych: normal mood and affect Diagnostic Data: ECG 12 Lead Date/Time: 05/28/2025 1:16 PM Performed by: Bravo Michel MD Authorized by: Bravo Michel MD Comparison: compared with previous ECG from 05/11/2022 Similar to previous ECG Rhythm: sinus rhythm and paced BPM: 75 Conduction: 1st degree AV block Pacemaker interrogation shows normal DDD pacemaker function. 92% paced in the right atrium. 26% in the RV. 2 years battery voltage. <1% A-fib. 1 episode of A- fib on 06/08/2024 that was 14 hours in duration 1. Paroxysmal atrial fibrillation 2. Sick sinus syndrome 3. Coronary artery disease involving [place] coronary artery of [place] heart without angina pectoris 4. Rectal bleeding Plan: 1. Paroxysmal Atrial Fibrillation: <1% mode switch on device interrogation. - CHADSVasc = 5 unable to take full dose Xarelto due to hemorrhoidal bleeding. He does not want to pursue higher dose oral anticoagulation at this time due to the risk of bleeding, not interested in Watchman device. He understands the risk for stroke although he is having very little if any sustained atrial fibrillation. 2. SSS: - with normal PM function, 3 years on battery 3. CAD: - s/p JUANITA 2017 on DAPT (ASA, Plavix, xarelto) per Dr. Ball. 4. Hemorrhoid/Rectal bleeding: No recurrence F/up in 12 months documented in this encounter Plan of Treatment Upcoming Encounters Date Type Department Care Team (Late st Contact Info) Description 05/28/2026 1:00 PM EDT Office Visit [facility] [address] [facility] [address] [place] [address] Ramesh Ely PA [address] [facility] [address] [place] [address] Scheduled Orders Name Type Priority Associated Diagnoses Orde r Schedule Cardiology Scan Cardiac Services Ord ered: 05/28/2025 documented as of this encounter Procedures Procedure Name Priority Date/Time Associated Diagnosis Comments ECG 12-LEAD Routine 05/28/2025 Paroxysmal atrial fibrillation Sick sinus syndrome Coronary artery disease involving [place] coronary artery of [place] heart without angina pectoris Rectal bleeding documented in this encounter Results * ECG 12-LEAD (05/28/2025) Narrative 05/28/2025 Bravo Michel MD 05/28/2025 1:24 PM ECG 12 Lead Date/Time: 05/28/2025 1:16 PM Performed by: Bravo Michel MD Authorized by: Bravo Michel MD Comparison: compared with previous ECG from 05/11/2022 Similar to previous ECG Rhythm: sinus rhythm and paced BPM: 75 Conduction: 1st degree AV block Procedure Note Bravo Michel MD - 05/28/2025 1:30 PM EDT Marcell Manning 1960 Home phone not available 05/28/2025 [facility] Referring Provider: No ref. provider found Mary Butler PA [address] [place] [address] Chief Complaint Patient presents with PAF (paroxysmal atrial fibrillation) Problem List: Paroxysmal Atrial Fibrillation CHADSVasc = 2 - 4 (HTN, CAD, ?? History of TIA) Rectal Bleeding/Hemorrhoids Occurred on Xarelto after 2 months duration- now discontinued 12/2018 Patient deferred GI work up Symptomatic Bradycardia: [facility] PM Implant 11/09/2018- Dr. Ball. CAD: [facility] with JUANITA 2016 [facility] 12/04/18: with patent stents Lexiscan Stress Test 06/13/2019: no reversible ischemia, EF 65% HTN HLP Carotid Artery Disease S/p right carotid endarterectomy CARLIE - has not received CPAP GERD Previous tobacco - quit 2016 Possible History of TIA- 2017 - data deficit Surgical History: Tonsillectomy Carotid endarterectomy Allergies No Known Allergies Current Medications Current Outpatient Medications: aspirin 81 MG EC tablet, Take 1 tablet by mouth Daily., Disp: , Rfl: bisoprolol (ZEBeta) 10 MG tablet, Take 1 tablet by mouth Daily., Disp: ,Rfl: Buprenorphine HCl-Naloxone HCl (ZUBSOLV SL), Place under the tongue.,Disp: , Rfl: carbonyl iron (FEOSOL) 45 MG tablet tablet, Take by mouth Daily., Disp:, Rfl: clopidogrel (PLAVIX) 75 MG tablet, Take 1 tablet by mouth Daily., Disp:, Rfl: hydrochlorothiazide (HYDRODIURIL) 12.5 MG tablet, Take 1 tablet by mouthDaily., Disp: , Rfl: isosorbide mononitrate (IMDUR) 30 MG 24 hr tablet, Take 1 tablet bymouth Daily., Disp: , Rfl: Jardiance 10 MG tablet tablet, Take 1 tablet by mouth Daily., Disp: ,Rfl: lisinopril (PRINIVIL,ZESTRIL) 2.5 MG tablet, Take 1 tablet by mouthDaily., Disp: , Rfl: ondansetron ODT (ZOFRAN-ODT) 4 MG disintegrating tablet, Place 1 tableton the tongue Every 8 (Eight) Hours As Needed for Nausea or Vomiting.,Disp: , Rfl: pantoprazole (PROTONIX) 40 MG EC tablet, Take 1 tablet by mouth everynight at bedtime., Disp: , Rfl: potassium chloride (MICRO-K) 10 MEQ CR capsule, Take 1 capsule by mouth3 (Three) Times a Week., Disp: , Rfl: rosuvastatin (CRESTOR) 20 MG tablet, Take 1 tablet by mouth Daily.,Disp: , Rfl: Xarelto 2.5 MG tablet, Take 1 tablet by mouth 2 (Two) Times a Day.,Disp: , Rfl: History of Present Illness Pt presents for follow up of PAF/SSS/HTN/CAD. Since we last saw the pt, ptstates that from a cardiac standpoint overall he has done reasonably well.He does note palpitations on occasion relatively short-lived. He isbiggest complaint is his pain in his legs with exertional activities whichhas been a chronic issue. He has been compliant with his medical therapy.Denies any hospitalizations, ER visits, bleeding, or TIA/CVA symptoms.Blood pressure is well-controlled. Vitals: 05/28/25 1302 BP: 118/58 BP Location: Left arm Patient Position: Sitting Cuff Size: Adult Pulse: 75 SpO2: 95% Weight: 66.2 kg (146 lb) Height: 172.7 cm (68 ) Body mass index is 22.2 kg/m . PE: General: NAD Neck: no JVD, no carotid bruits, no TM Heart RRR, NL S1, S2, S4 present, no rubs, murmurs Lungs: CTA, no wheezes, rhonchi, or rales Abd: soft, non-tender, NL BS Ext: No musculoskeletal deformities, no edema, cyanosis, or clubbing Psych: normal mood and affect Diagnostic Data: ECG 12 Lead Date/Time: 05/28/2025 1:16 PM Performed by: Bravo Michel MD Authorized by: Bravo Michel MD Comparison: compared with previousECG from 05/11/2022 Similar to previous ECG Rhythm: sinus rhythm and paced BPM: 75 Conduction: 1st degree AV block Pacemaker interrogation shows normal DDD pacemaker function. 92% paced inthe right atrium. 26% in the RV. 2 years battery voltage. <1% A-fib. 1episode of A-fib on 06/08/2024 that was 14 hours in duration 1. Paroxysmal atrial fibrillation 2. Sick sinus syndrome 3. Coronary artery disease involving [place] coronary artery of [place] without angina pectoris 4. Rectal bleeding Plan: 1. Paroxysmal Atrial Fibrillation: <1% mode switch on device interrogation. - CHADSVasc = 5 unable to take full dose Xarelto due to hemorrhoidalbleeding. He does not want to pursue higher dose oral anticoagulation atthis time due to the risk of bleeding, not interested in Watchman device.He understands the risk for stroke although he is having very little ifany sustained atrial fibrillation. 2. SSS: - with normal PM function, 3 years on battery 3. CAD: - s/p JUANITA 2017 on DAPT (ASA, Plavix, xarelto) per Dr. Ball. 4. Hemorrhoid/Rectal bleeding: No recurrence F/up in 12 months us Bravo Michel MD ECG ORDERABLES Final Result documented in this encounter Visit Diagnoses Diagnosis Paroxysmal atrial fibrillation- Primary Atrial fibrillation Sick sinus syndrome Sinoatrial node dysfunction Coronary artery disease involving [place] coronary artery of [place] heart without angina pectoris Rectal bleeding Hemorrhage of rectum and anus documented in this encounter Care Teams Food Processor Relationship Specialty Start Date End Date Mary Butler PA [address] [place], [place] [phone] PCP - General Physician Acoustical Carpenter 07/31/19 documented as of this encounter
--- OUTSIDE RECORDS SUMMARY | 2025-07-08 10:45 | XMS_ITS | Encounter Summary ---
Author Organization [facility] Address [address] [place] [address] Care Team Providers Care Hide Trimmer Name Role Phone Mary Butler Primary Care Provider [phone] Encounter Details Date Type Department Care Team (Latest Contact Info) Description 05/27/2025 Travel Social History Tobacco Use Types Packs/Day Years [...] as of this encounter Plan of Treatment Upcoming Encounters Date Type Department Care Team (Late st Contact Info) Description 05/28/2026 1:00 PM EDT Office Visit [facility] [address] [facility] [address] [place] [address] Ramesh Ely PA [address] [facility] [address] [place] [address] documented as of this encounter Visit Diagnoses Not on filedocumented in this encounter Care Teams Hide Trimmer Relationship Specialty Start Date End Date Mary Butler PA [address] [place] [address] PCP - General Physician Md Allergy Immunology 07/31/19 documented as of this encounter
--- OUTSIDE RECORDS SUMMARY | 2025-07-08 10:45 | XMS_ITS | Clinical Summary ---
Author Organization [facility] Address [address] [place] [address] Care Team Providers Care Lap Machine Operator Name Role Phone Mary Butler Primary Care [...] disease 05/09/2017 Coronary artery disease invo lving [place] coronary artery of [place] heart without angina pectoris 05/09/2017 Diabetes 05/09/2017 Encounters Date Type Department Care Team Description 07/03/2025 Orders Only [facility] [address] [place] [address] Jolie Wong RN Carotid artery disease, unspecified laterality, unspecified type (CMS/HCC) (Primary Dx) from Last 3 Months Family History Medical History Relation Name Comments Conversions - Other Father CAD (cor onary artery disease), [place] coronary artery Diabetes Father Stroke Father Thyroid cancer Father Conversions - Other Mother CAD (cor onary artery disease), [place] coronary artery Diabetes Mother Relation Name Status Comments Father Mother Social History Tobacco Use Types Packs/Day Years Used Date Smoking Tobacco: Former Cigarettes 2 35 1 2016 Passive Smoke Exposure: Past Smokeless Tobacco: Never [...] 06/13/2024 12:48 PM EDT Plan of Treatment Upcoming Encounters Date Type Department Care Team (Late st Contact Info) Description 07/22/2025 1:30 PM EDT Appointment [facility] [address] [place] [address] 07/22/2025 2:00 PM EDT Appointment [facility] [address] [facility] [address] [place] [address] 07/22/2025 2:20 PM EDT Office Visit [facility] [address] [facility] [address] [place] [address] Dennise Brown, PA [address] [facility] [address] [place] [address] Health Maintenance Due Date Last Done Comments [...] 09/19/2017 03/22/2017 [facility]-Lung Cancer Screening 05/25/2018 05/25/2017 [id number] Vaccine ( season) 2024 10/07/2021, 12/16/2020, 11/16/2020 [facility]-Influenza Vaccine (#1) 07/21/202510/19, 09/09/2021, 08/17/2020, Additional history exists [facility]-RSV Vaccine: [...] calcifications. CRITICAL RESULT: No. COMMUNICATION: Per this i tten report. ATTESTATION: Not Applicable. Verified by: RAH NEWSOME M.D. on May 25 2017 1:48P Transcribed by: HILARIO May 25 2017 1:43P Dictated by: RAH NEWSOME M.D. on May 25 2017 1:43P us Chase Braden MD IMG CT PROCEDURES Final [...] 5:32 AM EDT 03/22/2017 5:44 AM EDT us Zzzhistorical Provider LAB BLOOD ORDERABLES F inal Result SUNQUEST from Last 3 Months or Most Recently Relevant to Health Maintenance Insurance Care Teams Lap Machine Operator Relationship Specialty Start Date End Date Mary Butler PA [address] [place] [address] PCP - General 04/02/21
--- OUTSIDE RECORDS SUMMARY | 2025-07-08 10:45 | XMS_ITS | Encounter Summary ---
Author Organization [facility] Address [address] [place] [address] Care Team Providers Care Vp Account Director Name Role Phone Mary Butler Primary Care Provider [phone] Encounter Details Date Type Department Care Team (Late Contact Info) Description 04/28/2023 Orders Only External Location [address] [place] [address] Baldomero Ivy PA [address] [place] [id number] Social History Tobacco Use Types Packs/Day Years [...] Encounters Date Type Department Care Team (Late Contact Info) Description 07/22/2025 1:30 PM EDT Appointment [facility] [address] [place] [address] 07/22/2025 2:00 PM EDT Appointment [facility] [address] [place] [address] 07/22/2025 2:20 PM EDT Office Visit [facility] [address] [place] [phone] Dennise Brown PA [address] [place] [address] documented as of this encounter Procedures Procedure [...] on filedocumented in this encounter Care Teams Vp Account Director Relationship Specialty Start Date End Date Mary Butler PA [address] [place] [address] PCP - General 04/02/21 documented as of this encounter
--- OUTSIDE RECORDS SUMMARY | 2025-07-08 10:45 | XMS_ITS | Clinical Summary ---
Author Organization [facility] Address [address] [place] [address] Care Team Providers Care Shotblast Operator Name Role Phone Mary Butler Primary Care Provider [phone] Allergies No known active allergies Medications clopidogrel (PLAVIX) 75 MG tablet Take 1 tablet by mouth Daily. Active bisoprolol (ZEBeta) 10 MG tablet Take 1 tablet by mouth Daily. Active hydrochlorothiazide (HYDRODIURIL) 12.5 MG tablet Take 1 tablet by mouth Daily. Active carbonyl iron (FEOSOL) 45 MG tablet tablet Take by mouth Daily. Active aspirin 81 MG EC tablet Take 1 tablet by mouth Daily. Active Buprenorphine HCl-Naloxone HCl (ZUBSOLV SL) Place under the tongue. Active Jardiance 10 MG tablet tablet Take 1 tablet by mouth Daily. 4 Active isosorbide mononitrate (IMDUR) 30 MG 24 hr tablet Take 1 tablet by mouth Daily. 4 Active rosuvastatin (CRESTOR) 20 MG tablet Take 1 tablet by mouth Daily. 4 Active potassium chloride (MICRO-K) 10 MEQ CR capsule Take 1 capsule by mouth 3 (Three) Times a Week. 4 Active Xarelto 2.5 MG tablet Take 1 tablet by mouth 2 (Two) Times a Day. 4 Active lisinopril (PRINIVIL,ZESTRIL) 2.5 MG tablet Take 1 tablet by mouth Daily. 5 Active ondansetron ODT (ZOFRAN-ODT) [address] 1 tablet on the tongue Every 8 (Eight) Hours As Needed for Nausea or Vomiting. 5 Active pantoprazole (PROTONIX) 40 MG EC tablet Take 1 tablet by mouth every night at bedtime. Active Active Problems Problem Noted Date Diagnosed Date Paroxysmal atrial fibrillation 07/31/2019 Coronary artery disease invo lving capitan grande band coronary artery of capitan grande band heart without angina pectoris 07/31/2019 Sick sinus syndrome 07/31/2019 Encounters Date Type Department Care Team Description 05/28/2025 1:30 PM EDT Office Visit [facility] [address] [place] [address] [address] [place] [address] Bravo Michel MD Paroxysmal atrial fibrillation (Primary Dx); Sick sinus syndrome; Coronary artery disease involving cap[place] grande band coronary artery of capitan grande band heart without angina pectoris; Rectal bleeding 05/27/2025 Travel from Last 3 Months Family History Medical History Relation Name Comments Diabetes Brother 1 Heart disease Brother 1 Heart disease Brother 2 Heart disease Mother Heart attack Other Heart disease Other Heart failure Other Hyperlipidemia Other Hypertension Other Stroke Other Relation Name Status Comments Brother 1 Alive Brother 2 Father Mother Alive Other Social History Tobacco Use Types Packs/Day Years Used Date Smoking Tobacco: Former Cigarettes 0 07/31/1979 - 2016 Smokeless Tobacco: Never Tobacco Cessation:Counseling Given: Not Answered Alcohol Use Standard Drinks/Week Comments No 0 [...] Mass Index 22.2 05/28/2025 1:02 PM EDT Plan of Treatment Upcoming Encounters Date Type Department Care Team (Late st Contact Info) Description 05/28/2026 1:00 PM EDT Office Visit [facility] [address] [place] [address] Ramesh Ely PA [address] [place] [address] Health Maintenance Due Date Last Done Comments DIABETIC EYE EXAM 1971 DIABETIC FOOT EXAM 1971 URINE MICROALBUMIN-CREATININ E RATIO (uACR) 1971 Pneumococcal Vaccine 50+ (1 of 2 - PCV) 1980 COLOGUARD 2006 COLON CANCER SCREENING 5 YEA R SIGMOIDOSCOPY 2006 COLONOSCOPY 2006 [address] CANCER SCREENING 2006 CT COLONOGRAPHY 2006 FECAL OCCULT BLOOD TEST 2006 FIT Testing (1 year) 2006 TDAP/TD VACCINES (2 - Tdap) 01/25/2007 01/25/1997 ZOSTER VACCINE (1 of 2) 2011 ANNUAL WELLNESS VISIT 07/31/2019 HEMOGLOBIN A1C 07/31/2019 03/22/2017 HEPATITIS C SCREENING 07/31/2019 COVID-19 Vaccine (2023-2 5 season) 2024 10/07/2021, 12/16/2020, 11/16/2020 INFLUENZA VACCINE 08/20/2025 10/19/2022, , 08/17/2020, Additional history exists Procedures Procedure Name Priority Date/Time Associated Diagnosis Comments REMOTE DEVICE CHECK 06/04/2025 1 :11 AM EDT ECG 12-LEAD Routine 05/28/2025 Paroxysmal atrial fibrillation Sick sinus syndrome Coronary artery disease involving cap[place] grande band coronary artery of cap[place] grande band heart without angina pectoris Rectal bleeding from Last 3 Months Results * Remote Device Check (06/04/2025 1:11 AM EDT) Date Time Interrogation Session [id number] [facility] Type Interrogation Session Remote Scheduled [facility] Implantable Pulse Generator Charity Fundraiser [employer] [facility] Implantable Pulse Generator Type IPG [facility] Implantable Pulse Generator Model [id number] [facility] Implantable Pulse Generator Serial Number [id number] [facility] Implantable Pulse Generator Implant Date [id number] [facility] Battery Remaining Percentage 33.00 % [facility] Battery Remaining Longevity 18.0 mo [facility] Battery Status Beginning of Service [facility] Darius Statistic RA Percent Paced 93.00 [facility] Darius Statistic RV Percent Paced 30.00 [facility] Atrial Tachy Statistic AT/AF [place] Percent 0.00 [facility] Lead Channel Setting RA Sensing Sensitivity 0.75 [facility] Lead Channel RA Impedance Value 710 [facility] Lead Channel RA Measurements Date and Time [id number] [facility] Lead Channel Setting RA Pacing Amplitude 2.000 [facility] Lead Channel Setting RA Pacing Pulse Width 0.5 [facility] Lead Channel RV Sensing Intrinsic Amplitude 6.800 [facility] Lead Channel Setting RV Sensing Sensitivity 2.50 [facility] Lead Channel RV Impedance Value 754 [facility] Lead Channel RV Measurements Date and Time [id number] [facility] Lead Channel Setting RV Pacing Amplitude 2.000 [facility] Lead Channel Setting RV Pacing Pulse Width 0.5 [facility] Darius Setting Mode (NBG Code) DDDR [facility] Darius Setting Lower Rate Limit 70 [facility] Darius Setting AT Mode Switch Rate 170 [facility] Darius Setting Maximum Tracking Rate 130 [facility] Darius Setting Maximum Sensor Rate 130 [facility] Dairus Setting PAV Delay 220 [facility] Darius Setting ELIZABETH Delay 220 [facility] Lead Channel Setting RA Sensing Polarity Bipolar [facility] Lead Channel Setting RV Sensing Polarity Bipolar [facility] Lead Channel Setting RA Pacing Polarity Bipolar [facility] Lead Channel Setting RV Pacing Polarity Bipolar [facility] Lead Channel RA Pacing Threshold Polarity Bipolar [facility] Lead Channel RV Pacing Threshold Polarity Bipolar [facility] Zone Setting Type Category VT [facility] IDC RATE 1 160 [facility] Zone Setting Status Monitor [facility] Zone ID 1 [facility] 06/04/2025 1:11 AM EDT us Bravo Michel MD CV IMPLANTABLE CARDIAC DEVIC E Final Result [facility] * ECG 12-LEAD (05/28/2025) Narrative 05/28/2025 Bravo Michel MD 05/28/2025 1:24 PM ECG 12 Lead Date/Time: 05/28/2025 1:16 PM Performed by: Bravo Michel MD Authorized by: Bravo Michel MD Comparison: compared with previous ECG from 05/11/2022 Similar to previous ECG Rhythm: sinus rhythm and paced BPM: 75 Conduction: 1st degree AV block Procedure Note rBavo Michel MD - 05/28/2025 1:30 PM EDT Marcell Manning 1960 Home phone not available 05/28/2025 [facility] Referring Provider: No ref. provider found Mary Butler PA [address] [address] Chief Complaint Patient presents with PAF (paroxysmal atrial fibrillation) Problem List: Paroxysmal Atrial Fibrillation CHADSVasc = 2 - 4 (HTN, CAD, ?? History of TIA) Rectal Bleeding/Hemorrhoids Occurred on Xarelto after 2 months duration- now discontinued 12/2018 Patient deferred GI work up Symptomatic Bradycardia: [facility] PM Implant 11/09/2018- Dr. Ball. CAD: [place] with JUANITA 2016 [place] 12/04/18: with patent stents Lexiscan Stress Test [...] by: Bravo Michel MD Authorized by: Bravo Micehl MD Comparison: compared with previousECG from 05/11/2022 [...] sinus syndrome 3. Coronary artery disease involving [place] coronary artery of nativeheart without angina pectoris [...] Bravo Michel MD ECG ORDERABLES Final Result from Last 3 Months Insurance MEDICARE ADVANTAGE PPO Care Teams Shotblast Operator Relationship Specialty Start Date End Date Mary Butler PA [address] [place] [address] PCP - General Physician Acetylene Torch Solderer 07/31/19
--- OUTSIDE RECORDS SUMMARY | 2025-07-08 10:45 | XMS_ITS | Encounter Summary ---
Author Organization [facility] Address [address] [place] [address] Care Team Providers Care Power Screwdriver Operator Name Role Phone Mary Butler Primary Care Provider [phone] Encounter Details Date Type Department Care Team (Late Contact Info) Description 05/18/2023 Orders Only External Location [address] [place] [address] Provider, External Social History Tobacco Use Types [...] Info) Description 07/22/2025 1:30 PM EDT [facility]ointment [facility] [address] [place] [address] 07/22/2025 2:00 PM EDT [facility]ointment [facility] [address] [place] [address] 07/22/2025 2:20 PM EDT Office Visit [facility] [address] [place] [address] [address] [place] [address] Dennise Brown, ILANA [address] [facility] [address] [place] [address] documented as of this encounter Procedures Procedure [...] on filedocumented in this encounter Care Teams Power Screwdriver Operator Relationship Specialty Start Date End Date Mary Butler PA [address] [place] [address] PCP - General 04/02/21 documented as of this encounter
--- OUTSIDE RECORDS SUMMARY | 2025-07-08 10:45 | XMS_ITS | Encounter Summary ---
Author Organization [facility] Address [address] [id number] Care Team Providers Care Environmental Health Physician Name Role Phone Mary Butler Primary Care Provider [phone] Reason for Referral * Imaging (Routine) - Pending Review Specialty Diagnoses / Procedures Referred By Contac t Referred To Contact Cardiology Diagnoses Carotid artery disease, unspecified laterality, unspecified type (CMS/HCC) Procedures VAS Ankle Brachial Index - Segmental Dennise Brown PA [address] [facility] [address] [place] [address] Phone: tel: fax: Referral ID Status Reason Start Date Expiration Date Visits Requested Visits Authorized [id number] Pending Review Perform Procedure 07/03/2025 01/02/2027 1 1 * Imaging (Routine) - Pending Review Specialty Diagnoses / Procedures Referred By Contac t Referred To Contact Cardiology Diagnoses Carotid artery disease, unspecified laterality, unspecified type (CMS/HCC) Procedures VAS US Carotid Duplex Bilateral Dennise Brown PA [address] [place] [address] Phone: tel: fax: Referral ID Status Reason Start Date Expiration Date Visits Requested Visits Authorized [id number] Pending Review Perform Procedure 07/03/2025 01/02/2027 1 1 Encounter Details Date Type Department Care Team (Late st Contact Info) Description 07/03/2025 Orders Only [facility] [address] [place] [address] Jolie Wong, RN GS - Wound Care Carotid artery disease, unspecified laterality, unspecified type (CMS/HCC) (Primary Dx) Social History Tobacco Use Types Packs/Day Years Used Date Smoking Tobacco: Former Cigarettes 2 35 1 982 - 2017 Passive Smoke Exposure: Past Smokeless Tobacco: Never Alcohol Use Standard Drinks/Week [...] Info) Description 07/22/2025 1:30 PM EDT Appointment [facility] [address] [place] [address] 07/22/2025 2:00 PM EDT Appointment [facility] [address] [place] [address] [address] [place] [address] 07/22/2025 2:20 PM EDT Office Visit [facility] [address] [place] [address] Dennise Brown PA [address] [facility] [address] [place] [address] Scheduled Orders Name Type Priority Associated Diagnoses Orde r Schedule VAS US Carotid Duplex Bilateral Vascular Ultrasound Routine Carotid artery disease, unspecified laterality, unspecified type (CMS/HCC) Ordered: 07/03/2025 VAS Ankle Brachial Index - Segmental Vascular Ultrasound Routine Carotid artery disease, unspecified laterality, unspecified type (CMS/HCC) Ordered: 07/03/2025 documented as of this encounter Visit Diagnoses Diagnosis Carotid artery disease, unspecified laterality, unspecified type (CMS/HCC)- Primary documented in this encounter Additional Health Concerns Assessment Noted Time A fall risk assessment has been complete d for the patient 12/18/2023 1:24 PM EST A Body Mass Index follow-up plan has been documented for the patient 06/19/2024 11:04 AM EDT documented as of this encounter Care Teams Environmental Health Physician Relationship Specialty Start Date End Date Mary Butler PA [address] [place] [address] PCP - General 04/02/21 documented as of this encounter
[2025-07-08 11:30] LABS: Hematocrit 41.1 % (42.0-52.0); Hemoglobin 13.9 g/dL (14.1-18.0); Immature Granulocytes % 0.3 %; Mean Corpuscular HGB Conc 33.8 g/dL (31.8-35.4); Mean Corpuscular Hemoglobin 30.5 pg (27.0-31.2); Mean Corpuscular Volume 90.1 fl (80-94); Nucleated Red Blood Cells % 0 %; Platelet Count 210 K/mm3 (142-424); Red Blood Count 4.56 M/mm3 (4.60-6.20); Red Cell Distribution Width-SD 41.6 fL; White Blood Count 8.7 K/mm3 (4.8-10.8)
[2025-07-08 12:04] LABS: Alanine Aminotransferase 18 U/L (12-78); Albumin Level 4.8 g/dl (3.5-5.0); Alkaline Phosphatase 79 U/L (38-126); Anion Gap 15.1 mEq/L (5-15); Aspartate Amino Transferase 33 U/L (17-59); Bilirubin,Direct 0.1 mg/dl (0.0-0.4); Bilirubin,Indirect 0.2 mg/dL (0.0-0.9); Bilirubin,Total 0.3 mg/dl (0.2-1.3); Bilirubin,Unconjugated 0.2 mg/dL (0.0-1.1); Blood Urea Nitrogen 16 mg/dl (9-20); Calcium 9.9 mg/dl (8.4-10.2); Carbon Dioxide 30 mmol/L (22.0-30.0); Chloride 100 mmol/L (98-107); Cholesterol 115 mg/dl (140-200); Creatinine,Serum 1.00 mg/dl (0.66-1.25); Estimated Glomerular Filt Rate 75 ml/min (>60); GFR (African American) 91 ML/MIN (>60); Glucose 130 mg/dl (74-100); HDL Cholesterol 39 mg/dl (40-60); Magnesium 1.8 mg/dl (1.6-2.3); Potassium 4.1 mmoL/L (3.5-5.1); Sodium 141 mmol/L (136-145); Total Protein,Serum 7.9 g/dl (6.3-8.2); Triglycerides 114 mg/dl (30-150)
[2025-07-08 12:18] LABS: Free T4 (Free Thyroxine) 1.18 ng/dl (0.78-2.19)
[2025-07-08 12:33] LABS: Thyroid Stimulating Hormone 0.77 uIU/mL (0.465-4.68)
== END 2025-07-08 23:59 | disposition home or self-care (01) ==
LOC: LAB 10:40
PROVIDERS: PCP Nurse Practitioner Family; Visit Provider Physician Assistant
DX: I73.9 Peripheral vascular disease, unspecified (principal); I10 Essential (primary) hypertension; I25.10 Atherosclerotic heart disease of native coronary artery without angina pectoris; E11.9 Type 2 diabetes mellitus without complications; Z95.5 Presence of coronary angioplasty implant and graft
CPT/HCPCS: 36415; 80048; 80061; 80076; 83735; 84439; 84443; 85025

== ENCOUNTER 2025-08-05 10:28 | Outpatient (CLI) | payer MEDICARE, SELFPAY ==
--- OUTSIDE RECORDS SUMMARY | 2025-08-05 10:48 | XMS_ITS | Clinical Summary ---
Author Organization [facility] Address [address] [place] [address] Care Team Providers Care Branch Operations Coordinator Name Role Phone Mary Butler Primary Care Provider [phone] Allergies No known active allergies Medications clopidogrel [...] fibrillation 07/31/2019 Coronary artery disease invo lving buck[place] coronary artery of buck[place] heart without angina pectoris 07/31/2019 Sick sinus syndrome 07/31/2019 Encounters Date Type Department Care Team Description 05/28/2025 1:30 PM EDT Office Visit [facility] [address] [place] [address] [address] [place] [address] Bravo Michel MD Paroxysmal atrial fibrillation (Primary Dx); Sick sinus syndrome; Coronary artery disease involving buck[place] coronary artery of buck[place] heart without angina pectoris; Rectal bleeding 05/27/2025 [...] Description 05/28/2026 1:00 PM EDT Office Visit [facility] [address] [place] [address] Ramesh Ely PA [address] [place] [address] Health Maintenance Due Date Last Done Comments [...] 03/22/2017 HEPATITIS C SCREENING 07/31/2019 COVID-19 Vaccine (2024-2 6 season) 2025 10/07/2021, 12/16/2020, 11/16/2020 INFLUENZA VACCINE 08/20/2025 10/19/2022, , 08/17/2020, Additional history exists Procedures Procedure Name Priority Date/Time Associated Diagnosis Comments REMOTE DEVICE CHECK 06/04/2025 1 :11 AM EDT ECG 12-LEAD Routine 05/28/2025 Paroxysmal atrial fibrillation Sick sinus syndrome Coronary artery disease involving buck[place] coronary artery of buckland heart without angina pectoris Rectal bleeding from Last 3 Months Results * Remote Device Check (06/04/2025 1:11 AM EDT) Date Time Interrogation Session [id number] [facility] Type Interrogation Session Remote Scheduled [facility] Implantable Pulse Generator Movie Projectionist [employer] [facility] Implantable Pulse Generator Type IPG [facility] Implantable Pulse Generator Model [id number] [facility] Implantable Pulse Generator Serial Number [id number] [facility] Implantable Pulse Generator Implant Date [id number] [facility] Battery Remaining Percentage 33.00 % [facility] Battery Remaining Longevity 18.0 mo [facility] Battery Status Beginning of Service [facility] Darius Statistic RA Percent Paced 93.00 [facility] Darius Statistic RV Percent Paced 30.00 [facility] Atrial Tachy Statistic AT/AF [place] Percent 0.00 [facility] Lead Channel Setting RA Sensing Sensitivity 0.75 [facility] Lead Channel RA Impedance Value 710 [facility] Lead Channel RA Measurements Date and Time [id number] [facility] Lead Channel Setting RA Pacing Amplitude 2.000 [facility] Lead Channel Setting RA Pacing Pulse Width 0.5 [facility] Lead Channel RV Sensing Intrinsic Amplitude 6.800 [facility] Lead Channel Setting RV Sensing Sensitivity 2.50 [facility] Lead Channel RV Impedance Value 754 [facility] Lead Channel RV Measurements Date and Time [id number] [facility] Lead Channel Setting RV Pacing Amplitude 2.000 [facility] Lead Channel Setting RV Pacing Pulse Width 0.5 [facility] Darius Setting Mode (NBG Code) DDDR [facility] Darius Setting Lower Rate Limit 70 [facility] Darius Setting AT Mode Switch Rate 170 [facility] Darius Setting Maximum Tracking Rate 130 [facility] Darius Setting Maximum Sensor Rate 130 [facility] Darius Setting PAV Delay 220 [facility] Darius Setting ELIZABETH Delay 220 [facility] Lead Channel Setting RA Sensing Polarity Bipolar [facility] Lead Channel Setting RV Sensing Polarity Bipolar [facility] Lead Channel Setting RA Pacing Polarity Bipolar [facility] Lead Channel Setting RV Pacing Polarity Bipolar [facility] Lead Channel RA Pacing Threshold Polarity Bipolar [facility] Lead Channel RV Pacing Threshold Polarity Bipolar [facility] Zone Setting Type Category VT [facility] IDC RATE 1 160 [facility] Zone Setting Status Monitor [facility] Zone ID 1 [facility] 06/04/2025 1:11 AM EDT us Bravo Michel MD CV IMPLANTABLE CARDIAC DEVIC E Final Result [facility] * ECG 12-LEAD (05/28/2025) Narrative 05/28/2025 [...] Manning 1960 Home phone not available 05/28/2025 [facility] Referring Provider: No ref. provider found Mary Butler PA [address] [address] Chief Complaint Patient presents with PAF (paroxysmal atrial fibrillation) Problem List: Paroxysmal Atrial Fibrillation CHADSVasc = 2 - 4 (HTN, CAD, ?? History of TIA) Rectal Bleeding/Hemorrhoids Occurred on Xarelto after 2 months duration- now discontinued 12/2018 Patient deferred GI work up Symptomatic Bradycardia: [facility] PM Implant 11/09/2018- Dr. Ball. CAD: [facility] with JUANITA 2016 [facility] 12/04/18: with patent stents Lexiscan Stress Test [...] sinus syndrome 3. Coronary artery disease involving [place] coronary artery of [place]heart without angina pectoris [...] Months Insurance MEDICARE ADVANTAGE PPO Care Teams Branch Operations Coordinator Relationship Specialty Start Date End Date Mary Butler PA [address] [place] [address] PCP - General Physician Satellite Communications Engineer 07/31/19
--- OUTSIDE RECORDS SUMMARY | 2025-08-05 10:48 | XMS_ITS | Clinical Summary ---
Author Organization [facility] Address [address] [place] [address] Care Team Providers Care Vehicle Fuel Systems Converter Name Role Phone Mary Butler Primary Care Provider [phone] Allergies No known active allergies Medications aspirin [...] disease 05/09/2017 Coronary artery disease invo lving [place] coronary artery of [place] heart without angina pectoris 05/09/2017 Diabetes 05/09/2017 Encounters Date Type Department Care Team Description 07/03/2025 Orders Only [facility] [address] [facility] 5th Floor [address] [place] [address] Jolie Wong RN Carotid artery disease, unspecified laterality, unspecified type (CMS/HCC) (Primary Dx) from Last 3 Months Family History Medical History Relation Name Comments Conversions - Other Father CAD (cor onary artery disease), [place] coronary artery Diabetes Father Stroke Father Thyroid cancer Father Conversions - Other Mother CAD (cor onary artery disease), [place] coronary artery Diabetes Mother Relation Name Status [...] [facility]-HIV Screening 1960 [facility]-Hepatitis C Screening 1960 [facility]-Medicare Annual Wellness (AWV) 1960 [facility]-/Child/Adol SDOH Screenings [...] 09/19/2017 03/22/2017 [facility]-Lung Cancer Screening 05/25/2018 05/25/2017 [id number] Vaccine ( season) 2025 10/07/2021, 12/16/2020, 11/16/2020 [facility]-Influenza Vaccine (#1) 07/21/202510/19, [...] on May 25 2017 1:48P Transcribed by: [facility] May 25 2017 1:43P Dictated by: [facility] [...] on May 25 2017 1:48P Transcribed by: [facility] May 25 2017 1:43P Dictated by: RA[facility] [...] AM EDT Historical Provider LAB BLOOD ORDERABLES Final R esult SUNQUEST from Last 3 Months or Most Recently Relevant to Health Maintenance Insurance Care Teams Vehicle Fuel Systems Converter Relationship Specialty Start Date End Date Mary Butler PA [address] [place] [address] PCP - General 04/02/21
--- OUTSIDE RECORDS SUMMARY | 2025-08-05 10:48 | XMS_ITS | Encounter Summary ---
Author Organization [facility] Address [address] [id number] Care Team Providers Care Pipe Testing Technician Name Role Phone Mary Butler Primary Care Provider [phone] Reason for Referral * Imaging (Routine) - Authorized Specialty Diagnoses / Procedures Referred By Contac t Referred To Contact Cardiology Diagnoses Carotid artery disease, unspecified laterality, unspecified type (CMS/HCC) Procedures VAS Ankle Brachial Index - Segmental Dennise Brown PA [address] [facility] [address] [place] [address] Phone: tel: fax: Referral ID Status Reason Start Date Expiration Date Visits Requested Visits Authorized [id number] Authorized Perform Procedure 07/03/2025 01/02/2027 1 1 * Imaging (Routine) - Authorized Specialty Diagnoses / Procedures Referred By Contac t Referred To Contact Cardiology Diagnoses Carotid artery disease, unspecified laterality, unspecified type (CMS/HCC) Procedures VAS US Carotid Duplex Bilateral Dennise Brown PA [address] [place] [address] Phone: tel: fax: Referral ID Status Reason Start Date Expiration Date Visits Requested Visits Authorized [id number] Authorized Perform Procedure 07/03/2025 01/02/2027 1 1 Encounter Details Date Type Department Care Team (Late st Contact Info) Description 07/03/2025 Orders Only [facility] [address] [facility] [address] [place] [address] Jolie Wong, RN GS - Wound Care Carotid artery disease, unspecified laterality, unspecified type (CMS/HCC) (Primary Dx) Social History Tobacco Use Types Packs/Day Years Used Date Smoking Tobacco: Former Cigarettes 2 35 1 982 - 2016 Passive Smoke Exposure: Past Smokeless Tobacco: Never Alcohol Use Standard Drinks/Week Comments No 0 (1 standard drink = 0.6 oz pur e alcohol) Sex and Gender Information Value Date Recorded Sex Assigned at Not on file Legal Sex Male 7:42 PM EDT Gender Identity Not on file Sexual Orientation Not on file documented as of this encounter Plan of Treatment Scheduled Orders Name Type Priority Associated Diagnoses [...] documented as of this encounter Care Teams Pipe Testing Technician Relationship Specialty Start Date End Date Mary Butler PA [address] [place] [address] PCP - General 04/02/21 documented as of this encounter
--- OUTSIDE RECORDS SUMMARY | 2025-08-05 10:48 | XMS_ITS | Encounter Summary ---
Author Organization [facility] Address [address] [id number] Care Team Providers Care Insole Rounder Name Role Phone Mary Butler Primary Care Provider [phone] Encounter Details Date Type Department Care Team (Late st Contact Info) Description 04/28/2023 Orders Only External Location [address] [place] [address] Baldomero Ivy PA [facility] [place] [address] Social History Tobacco Use Types Packs/Day Years [...] on filedocumented in this encounter Care Teams Insole Rounder Relationship Specialty Start Date End Date Mary Butler PA [address] [place] [address] PCP - General 04/02/21 documented as of this encounter
--- OUTSIDE RECORDS SUMMARY | 2025-08-05 10:48 | XMS_ITS | Encounter Summary ---
Author Organization Healthcare Address [address] [place] [address] Care Team Providers Care B2B Sales Consultant Name Role Phone Mary Butler Primary Care Provider [phone] Encounter Details Date Type Department Care Team ([facility] st Contact Info) Description 05/18/2023 Orders Only External Location [address] [place] [address] Provider, External Social History Tobacco Use Types [...] on filedocumented in this encounter Care Teams B2B Sales Consultant Relationship Specialty Start Date End Date Mary Butler PA [address] [place] [address] PCP - General 04/02/21 documented as of this encounter
--- NOTE | 2025-08-05 11:00 | CT_ITS ---
FINAL REPORT CLINICAL HISTORY: lung cancer screening former smoker quit 8 years ago. smoked 1.5 ppd x 35 years COMPARISON: 07/16/2023 FINDINGS: CTDI vol (mGy): 2.90 DLP: 107.[address] images of the chest were obtained using the low-dose protocol for screening. There is no evidence of mediastinal or hilar mass or adenopathy. No axillary mass or adenopathy is identified. On the lung window images, ground glass opacity is seen in the superior segment of the left lower lobe which is enlarged from prior exam now measuring 13 mm, previously measured 6 mm. There is no new pulmonary lesion identified. IMPRESSION: Interval enlargement of ground glass opacity in the left lower lobe. Based on size criteria this is likely benign. Lung RADS category 2 . Recommend 12 month followup low-dose CT for further evaluation. Reviewed, Interpreted and Dictated by Farrukh Kessler MD Transcribed by Cristina Iglesias Authenticated and [facility]
== END 2025-08-05 23:59 | disposition home or self-care (01) ==
LOC: RAD 10:28
PROVIDERS: PCP Nurse Practitioner Family; Visit Provider Nurse Practitioner Family
DX: R91.8 Other nonspecific abnormal finding of lung field (principal); Z12.2 Encounter for screening for malignant neoplasm of respiratory organs; F17.210 Nicotine dependence, cigarettes, uncomplicated
CPT/HCPCS: 71271